=== PATIENT | female | born 1960 | race Caucasian/White ===

== ENCOUNTER 2023-04-02 08:33 | Observation (INO) ==
[2023-04-02] MEDS ORDERED: diphenhydrAMINE 50 MG/ML VIAL IV STA (09:03)
[2023-04-02] MEDS ORDERED: LABETALOL HCL IV 5 MG/ML 20ML IV STA (09:03)
[2023-04-02] MEDS ORDERED: METOCLOPRAMIDE HCL INJ 5 MG/ML 2 ML VIAL IV STA (09:03)
--- NOTE | 2023-04-02 09:05 | Emergency Department Note ---
Impression & Plan Hypertensive urgency ADMIT ED Provider Note HPI: History obtained from patient. The patient is a 62-year-old female who presents emergency department with chief complaint of headache. Patient states she has had a headache now for the past 6 days. Patient states she does have a history of migraine headaches. In addition, patient states she took her blood pressure prior to arrival and it was "high". On arrival here to the ED the patient is hypertensive at 250/132, heart rate is 105, patient is afebrile. On arrival here to the ED the patient is alert and oriented, she does not have any focal deficits, she complains of some moderate nausea but otherwise appears to be in no acute distress. ROS: - Per HPI Differential Diagnosis: Intraparenchymal hemorrhage, subarachnoid hemorrhage, brain aneurysm, hypertensive emergency, migraine complex, tension headache, meningitis, amongst other potential pathologies. *Outpatient medications and allergy history reviewed. 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 Patient was given IV labetalol for presenting hypertension and headache. She was also ordered IV Reglan and IV Benadryl. CT imaging of the head with CT angiography was obtained and this does not show any evidence of any acute intracranial hemorrhage, no evidence of aneurysm per interpreting radiologist. Lab work shows no leukocytosis, hemoglobin is normal, platelet count is normal, CMP does not show any evidence of critical findings or endorgan damage. Renal function appears appropriate, troponin is negative. Urinalysis does not show any evidence of proteinuria. Patient has not had any fevers and no leukocytosis, I have low suspicion for acute infectious etiology as a source of her headache. Despite the above interventions patient continued to have complaint of headache and generally felt unwell, her blood pressure up trended slightly and therefore she was given a dose of IV hydralazine with good improvement. Patient tells me that she has had similar headaches in the past that have been associated with hypertension and medical admission. Given patient's poorly controlled blood pressure requiring multiple IV medications, I do feel it is appropriate to admit her for further work-up and management of hypertensive urgency with headache. Patient is in agreement to this plan. Case was discussed with the on-call admitting midlevel provider for the [facility], Mariam Tirado PA-C, and the patient was admitted in stable/improved condition to the service of Dr. Zuniga. Consultants/Discussions held with other healthcare providers: -Mariam Tirado PA-C, Dr. Zuniga (attending) Disposition discussion held by myself with: -Patient and significant other at the bedside * CRITICAL CARE TIME: ( 43 ) minutes -Management/stabilization of hypertensive urgency in the setting of ongoing headache requiring multiple IV medications for improvement in blood pressure with readings at times as high as 250 systolic, time spent at the bedside, interpretation of diagnostic studies, discussion with other healthcare providers and arrangement of admission Diagnosis: 1. Headache, acute, intractable 2. Hypertensive urgency, acute Disposition: Admission Agustin Reddy DO Emergency Medicine Past Med/Surg History Medical History (Updated 04/02/23 @ 12:48 by Mariam Tirado PA-C) Pre-diabetes Osteoarthritis Hypertension Hypercholesterolemia Surgical History (Updated 04/02/23 @ 12:30 by Mariam Tirado PA-C) Status post colonoscopy History of hysterectomy History of colonoscopy History of foot surgery Family History Father Hypertension Stroke Mother Hypertension Social History (Updated 04/02/23 @ 12:35 by Mariam Tirado PA-C) Smoking Status: Never smoker Hx Alcohol Use: Yes Alcohol type: beer and wine Hx Substance Use: No Preferred Language: Iraqi Communication Ability: Effective Regulatory Submissions Specialist Required: No Beliefs That Will Affect Care: None marital status: Current Living Situation: Spouse current occupational status: employed Feels Safe at Home: Yes Assistive Devices: None Allergies Allergies Allergy/AdvReac Type Severity Reaction Status Date / Time MOLD Allergy Intermediate EYES BURN Uncoded 04/02/23 11:22 AND SWELLING TIDE LAUNDRY DETERGENT Allergy Intermediate Rash Uncoded 04/02/23 11:22 Home Meds Home Medications Medication Instructions Recorded Confirmed diphenhydramine 25 1 tab PO HS PRN Pain 06/25/18 04/02/23 mg-acetaminophen 500 mg tablet (Tylenol PM Extra Strength) lisinopril 40 mg tablet 40 mg PO QAM 04/02/23 04/02/23 Results & Data (ED) Vital Signs Vital Signs - 24 hr 04/02/23 08:37 04/02/23 09:12 04/02/23 09:14 Temperature 36.8 C Temperature Source Temporal Artery Scan Pulse Rate 105 H 89 81 Pulse Rate [Right Finger] Pulse Rate from SpO2 Sensor 87 Respiratory Rate 18 18 Respiratory Effort / Characteristics Non-Labored Spontaneous Respiratory Depth Normal Blood Pressure 250/132 H 219/135 H Blood Pressure [Right Arm] Blood Pressure Mean 171 163 Blood Pressure Mean [Right Arm] Blood Pressure Position Sitting Pulse Oximetry 98 92 Oxygen Delivery Method Room Air Sepsis Recent Fever Within 48 Hours No Sepsis New/Unexplained Change in Mental Status No Sepsis Action Taken by Nursing No Action Required 04/02/23 09:18 04/02/23 09:30 04/02/23 10:00 Temperature Temperature Source Pulse Rate 87 76 73 Pulse Rate [Right Finger] Pulse Rate from SpO2 Sensor 76 72 Respiratory Rate 21 16 Respiratory Effort / Characteristics Respiratory Depth Blood Pressure 219/135 H 155/97 H 165/101 H Blood Pressure [Right Arm] Blood Pressure Mean 116 122 Blood Pressure Mean [Right Arm] Blood Pressure Position Pulse Oximetry 92 97 Oxygen Delivery Method Sepsis Recent Fever Within 48 Hours Sepsis New/Unexplained Change in Mental Status Sepsis Action Taken by Nursing 04/02/23 11:00 04/02/23 11:24 04/02/23 11:53 Temperature Temperature Source Pulse Rate 75 Pulse Rate [Right Finger] 73 69 Pulse Rate from SpO2 Sensor Respiratory Rate 22 16 Respiratory Effort / Characteristics Non-Labored Spontaneous Spontaneous Respiratory Depth Normal Normal Blood Pressure 168/104 H Blood Pressure [Right Arm] 168/104 H 187/117 H Blood Pressure Mean Blood Pressure Mean [Right Arm] 125 140 Blood Pressure Position Pulse Oximetry 96 95 Oxygen Delivery Method Room Air Room Air Sepsis Recent Fever Within 48 Hours Sepsis New/Unexplained Change in Mental Status Sepsis Action Taken by Nursing 04/02/23 12:01 04/02/23 12:13 04/02/23 12:36 Temperature Temperature Source Pulse Rate Pulse Rate [Right Finger] 71 73 77 Pulse Rate from SpO2 Sensor Respiratory Rate 16 18 20 Respiratory Effort / Characteristics Spontaneous Spontaneous Respiratory Depth Normal Normal Blood Pressure Blood Pressure [Right Arm] 204/129 H 197/115 H 223/122 H Blood Pressure Mean Blood Pressure Mean [Right Arm] 154 142 155 Blood Pressure Position Pulse Oximetry 97 98 97 Oxygen Delivery Method Room Air Room Air Room Air Sepsis Recent Fever Within 48 Hours Sepsis New/Unexplained Change in Mental Status Sepsis Action Taken by Nursing 04/02/23 12:47 04/02/23 12:58 Temperature Temperature Source Pulse Rate Pulse Rate [Right Finger] 80 85 Pulse Rate from SpO2 Sensor Respiratory Rate 16 16 Respiratory Effort / Characteristics Spontaneous Spontaneous Respiratory Depth Normal Normal Blood Pressure Blood Pressure [Right Arm] 200/109 H 198/117 H Blood Pressure Mean Blood Pressure Mean [Right Arm] 139 144 Blood Pressure Position Pulse Oximetry 96 96 Oxygen Delivery Method Room Air Room Air Sepsis Recent Fever Within 48 Hours Sepsis New/Unexplained Change in Mental Status Sepsis Action Taken by Nursing Laboratory Data 04/02/23 09:05 04/02/23 09:05 Lab Results 04/02/23 04/02/23 Range/Units 09:05 10:28 WBC 5.59 (4.8-10.8) K/ul RBC 4.58 (4.20-5.40) M/uL Hgb 13.8 (12.0-16.0) g/dl Hct 41.5 (37.0-47.0) % MCV 90.6 (80.0-100.0) fL MCH 30.1 (25.0-34.0) pg MCHC 33.3 (32.0-36.0) g/dL RDW Std Deviation 43.5 (36.4-46.3) fL RDW Coeff of Jesus 13.1 (11.5-14.5) % Plt Count 244 (130-400) K/uL MPV 9.9 (9.4-12.4) fL Immature Gran % (Auto) 1.8 % Neut % (Auto) 69.8 % Lymph % (Auto) 20.8 % [place] % (Auto) 7.0 % Eos % (Auto) 0.4 % Baso % (Auto) 0.2 % Neut # (Auto) 3.91 (1.40-6.50) K/uL Lymph # (Auto) 1.16 L (1.20-3.40) K/uL [place] # (Auto) 0.39 (0.11-0.59) K/uL Eos # (Auto) 0.02 (0.00-0.50) K/uL Baso # (Auto) 0.01 (0.00-0.20) K/uL Immature Gran # (Auto) 0.10 (0.01-0.20) K/uL PT 10.8 (9.0-12.0) Seconds INR 1.0 (0.9-1.1) Sodium 140 (136-145) mmol/L Potassium 3.5 (3.5-5.1) mmol/L Chloride 105 (98-107) mmol/L Carbon Dioxide 27 (21-32) mmol/L Anion Gap 8 (3-11) BUN 10 (6-23) mg/dl Creatinine 0.77 (0.6-1.2) mg/dl Est Cr Clr Drug Dosing 68.9 ml/min Est GFR ( Amer) 96.6 ml/min Est GFR (Non-Af Amer) 83.3 ml/min BUN/Creatinine Ratio 13.0 (10-20) Glucose 112 H (70-99(Fasting)) mg/dl Calcium 9.7 (8.6-10.3) mg/dl Total Bilirubin 0.5 (0.2-1.0) mg/dl AST 16 (13-39) U/L ALT 17 (7-52) U/L Alkaline Phosphatase 59 (34-104) U/L Troponin I High Sens 4.5 (0-14) pg/ml Total Protein 7.5 (6.0-8.3) gm/dl Albumin 4.5 (3.4-5.0) gm/dl Globulin 3.0 (2.5-4.0) gm/dl Albumin/Globulin Ratio 1.5 (0.9-2) Lipase 31 (11-82) U/L Urine Color Yellow Urine Appearance Clear (Clear) Urine pH 7.5 (4.5-7.5) Ur Specific [place] 1.007 (1.000-1.030) Urine Protein Negative (Negative) Urine Glucose (UA) Negative (Negative) Urine Ketones Negative (Negative) Urine Blood Negative (Negative) Urine Nitrite Negative (Negative) Urine Bilirubin Negative (Negative) Urine Urobilinogen Negative (Negative) Ur Leukocyte Esterase Negative (Negative) Administered Medications Discontinued Medications Diphenhydramine HCl (Diphenhydramine 50 Mg/Ml Vial) 25 mg IV NOW STA Stop: 04/02/23 09:04 Last Admin: 04/02/23 09:13 Dose: 25 mg Documented By: ESTEFANIA Hydralazine HCl (Hydralazine Hcl 20 Mg/Ml Vial) 5 mg IV NOW ONE Stop: 04/02/23 12:05 Last Admin: 04/02/23 12:08 Dose: 5 mg Documented By: ANGELA Hydralazine HCl (Hydralazine Hcl 20 Mg/Ml Vial) 10 mg IV NOW STA Stop: 04/02/23 12:28 Last Admin: 04/02/23 12:42 Dose: 10 mg Documented By: ANGELA Ioversol (Optiray 320 100ml) 89 ml IV ONCE ONE Stop: 04/02/23 10:26 Last Admin: 04/02/23 10:25 Dose: 89 ml Documented By: MILES Labetalol HCl (Labetalol Hcl Iv 5 Mg/Ml 20ml) 15 mg IV NOW STA Stop: 04/02/23 09:04 Last Admin: 04/02/23 09:18 Dose: 15 mg Documented By: ESTEFANIA Co-signed By: ARMANDO Methylprednisolone (Methylprednisolone 40 Mg/Ml Vial) 40 mg IV NOW STA Stop: 04/02/23 12:28 Last Admin: 04/02/23 12:42 Dose: 40 mg Documented By: ANGELA Metoclopramide HCl (Metoclopramide Hcl Inj 5 Mg/Ml 2 Ml Vial) 10 mg IV NOW STA Stop: 04/02/23 09:04 Last Admin: 04/02/23 09:13 Dose: 10 mg Documented By: ESTEFANIA Morphine Sulfate (Morphine Sulfate 4 Mg/Ml 1 Ml Carp\\Vial) 4 mg IV NOW STA Stop: 04/02/23 11:08 Last Admin: 04/02/23 11:21 Dose: 4 mg Documented By: ANGELA Morphine Sulfate (Morphine Sulfate 4 Mg/Ml 1 Ml Carp\\Vial) 4 mg IV NOW STA Stop: 04/02/23 12:05 Last Admin: 04/02/23 12:08 Dose: 4 mg Documented By: ANGELA Imaging Data Radiologist's Impression: Chest X-Ray 04/02/23 08:56 XR chest 1V portable HISTORY: 62 years-old Female Chest pain, nonspecific acute chest pain COMPARISON: 06/27/2018 TECHNIQUE: AP view the chest FINDINGS: Right axilla is normal. No pneumothorax, pleural effusion, airspace consolidation or pulmonary edema. Bones appear grossly intact. IMPRESSION: No acute process. ACT 112: Negative or not required by law. The above report was generated using voice recognition software. It may contain grammatical, syntax or spelling errors. Electronically signed by: Newton Guaman M.D. 04/02/2023 9:58 AM Head CTA 04/02/23 09:03 CT angio head wo/w CLINICAL HISTORY: FOREMAN x 6 days, HTN COMPARISON STUDY: No previous studies for comparison. TECHNIQUE: Axial images of the head were obtained before and after intravenous administration of 89 cc of Optiray 320 IV. Arterial phase imaging was performed. Sagittal and coronal reconstructions were viewed. Automated exposure control was utilized for the study. A dose lowering technique was utilized adhering to the principles of ALARA. FINDINGS: No acute intracranial hemorrhage, midline shift or mass effect is present. Ventricular system is normal. Basal cisterns are patent. There are no extra axial collections. White matter hypodensities suggest small vessel disease. There are no findings to suggest acute dural sinus thrombosis or acute territorial infarct. No significant calvarial abnormalities are present. A small amount of fluid within the inferior bilateral mastoid air cells is present. No intracranial mass or pathologic enhancement is present. Major intracranial vessels are grossly patent. No intracranial aneurysm is identified. There is no dissection within the intracranial vessels. Vascular opacification is somewhat suboptimal. There are bilateral posterior communicating arteries. There is moderate atherosclerotic plaque within the cavernous carotids without stenosis. IMPRESSION: 1. No acute intracranial findings. 2. White matter hypodensities suggestive of small vessel disease. 3. No intracranial aneurysm. No central vessel occlusion. Vascular opacification suboptimal but no significant abnormality identified. ACT 112: Negative or not required by law. Electronically signed by: Andres Vázquez M.D. 04/02/2023 11:47 AM Discharge Plan Visit Data Chief Complaint: Hypertension Stated Complaint: HEADACHE,HYPERTENSION ED Provider: Agustin Reddy Discharge Problem: Hypertensive urgency Forms Stand Alone Forms: [facility] Prescriptions Prescriptions: No Action diphenhydramine-acetaminophen [Tylenol PM Extra Strength] 25-500 mg Tablet 1 tab PO HS PRN (Reason: Pain) lisinopril 40 mg tablet 40 mg PO QAM Referrals Referrals: Gabe Ramos DO [Outside Practitioners] -
[2023-04-02 09:20] LABS: Basophils # (auto) 0.01 K/uL (0.00-0.20); Basophils % (auto) 0.2 %; Eosinophils # (auto) 0.02 K/uL (0.00-0.50); Eosinophils % (auto) 0.4 %; Hematocrit (blood only) 41.5 % (37.0-47.0); Hemoglobin 13.8 g/dl (12.0-16.0); Immature Granulocytes % (auto) 1.8 %; Lymphocytes # (auto) 1.16 K/uL (1.20-3.40); Lymphocytes % (auto) 20.8 %; Mean Corpuscular Hemoglobin 30.1 pg (25.0-34.0); Mean Corpuscular Hgb Conc 33.3 g/dL (32.0-36.0); Mean Corpuscular Volume 90.6 fL (80.0-100.0); Mean Platelet Volume 9.9 fL (9.4-12.4); Monocytes # (auto) 0.39 K/uL (0.11-0.59); Neutrophils # (auto) 3.91 K/uL (1.40-6.50); Neutrophils % (auto) 69.8 %; Platelet Count 244 K/uL (130-400); RDW Coefficient of Variation 13.1 % (11.5-14.5); RDW Standard Deviation 43.5 fL (36.4-46.3); Red Blood Count 4.58 M/uL (4.20-5.40); White Blood Count 5.59 K/ul (4.8-10.8)
[2023-04-02 09:35] LABS: Albumin Level 4.5 gm/dl (3.4-5.0); Bilirubin,Total 0.5 mg/dl (0.2-1.0); Calcium 9.7 mg/dl (8.6-10.3); Potassium 3.5 mmol/L (3.5-5.1)
[2023-04-02 09:39] LABS: Prothrombin Time 10.8 Seconds (9.0-12.0)
[2023-04-02 09:41] LABS: Albumin Globulin Ratio 1.5 (0.9-2); Creatinine Clr Calc Pharmacy 68.9 ml/min; Est GFR (African American) 96.6 ml/min; Est GFR (Non-African American) 83.3 ml/min; Total Protein 7.5 gm/dl (6.0-8.3)
[2023-04-02 09:44] LABS: Troponin I High Sensitivity 4.5 pg/ml (0-14)
--- NOTE | 2023-04-02 09:56 | Electrocardiogram Report ---
Test Reason : Blood Pressure : / mmHG Vent. Rate : 090 BPM Atrial Rate : 090 BPM P-R Int : 144 ms QRS Dur : 098 ms QT Int : 400 ms P-R-T Axes : 045 -13 039 degrees QTc Int : 489 ms Poor data quality, interpretation may be adversely affected Normal sinus rhythm Incomplete right bundle branch block Borderline ECG When compared with ECG of 25-JUN-2018 18:40, No significant change was found Confirmed by Fede Puente ([id number]) on 04/02/2023 9:55:50 AM Referred By: REFERRED SELF Confirmed By:Fede Puente
--- NOTE | 2023-04-02 09:59 | XRay Report ---
XR chest 1V portable HISTORY: 62 years-old Female Chest pain, nonspecific acute chest pain COMPARISON: 06/27/2018 TECHNIQUE: AP view the chest FINDINGS: Right axilla is normal. No pneumothorax, pleural effusion, airspace consolidation or pulmonary edema. Bones appear grossly intact. IMPRESSION: No acute process. ACT 112: Negative or not required by law. The above report was generated using voice recognition software. It may contain grammatical, syntax o r spelling errors. Electronically signed by: Newton Guaman M.D. 04/02/2023 9:58 AM
[2023-04-02] MEDS ORDERED: OPTIRAY 320 100ml IV ONE (10:25)
[2023-04-02] MEDS ORDERED: MoRPHine SULFATE 4 MG/ML 1 ML CARP\\VIAL IV STA ×2 (11:07→12:04)
[2023-04-02 11:15] LABS: Appearance Urine Clear (Clear); Bilirubin Urine Negative (Negative); Blood Urine Negative (Negative); Color Urine Yellow; Glucose Urine UA Negative (Negative); Ketones Urine Negative (Negative); Leukocyte Esterase Urine Negative (Negative); Nitrite Urine Negative (Negative); Protein Urine Negative (Negative); Specific Gravity Urine 1.007 (1.000-1.030); Urobilinogen Urine Negative (Negative); pH Urine 7.5 (4.5-7.5)
--- NOTE | 2023-04-02 11:48 | CT Scan Report ---
CT angio head wo/w CLINICAL HISTORY: FOREMAN x 6 days, HTN COMPARISON STUDY: No previous studies for comparison. TECHNIQUE: Axial images of the head were obtained before and after intravenous administration of 89 c c of Optiray 320 IV. Arterial phase imaging was performed. Sagittal and coronal reconstructions were viewed. Automated exposure control was utilized for the study. A dose lowering technique was utilize d adhering to the principles of ALARA. FINDINGS: No acute intracranial hemorrhage, midline shift or mass effect is present. Ventricular syst em is normal. Basal cisterns are patent. There are no extra axial collections. White matter hypodensi ties suggest small vessel disease. There are no findings to suggest acute dural sinus thrombosis or a cute territorial infarct. No significant calvarial abnormalities are present. A small amount of fluid within the inferior bilateral mastoid air cells is present. No intracranial mass or pathologic enhan cement is present. Major intracranial vessels are grossly patent. No intracranial aneurysm is identif ied. There is no dissection within the intracranial vessels. Vascular opacification is somewhat subop timal. There are bilateral posterior communicating arteries. There is moderate atherosclerotic plaque within the cavernous carotids without stenosis. IMPRESSION: 1. No acute intracranial findings. 2. White matter hypodensities suggestive of small vessel disease. 3. No intracranial aneurysm. No central vessel occlusion. Vascular opacification suboptimal but no si gnificant abnormality identified. ACT 112: Negative or not required by law. Electronically signed by: Andres Vázquez M.D. 04/02/2023 11:47 AM
[2023-04-02] MEDS ORDERED: hydrALAZINE HCL 20 MG/ML VIAL IV ONE (12:04)
[2023-04-02] MEDS ORDERED: hydrALAZINE HCL 20 MG/ML VIAL IV STA (12:27)
--- NOTE | 2023-04-02 12:27 | History & Physical Report ---
Date of Service April 02, 2023 Assessment & Plan (1) Hypertensive emergency: (2) Migraine: Plan This is a 62 yr old F who has a significant PMH of HTN, HLD, prediabetes and migraine who presents to ED 2/2 Headache x 6 days. Hypertensive Emergency admit to PCU Place pt on cardene gtt She received labetalol 15 mg x 1 and hydralazine 5 mg x 1 Gave additional hydralazine 10mg x 1 now as well as solumedrol 40mg x 1 for abortive therapy for migraine with no real improvement obtain lyme, anaplasma, babesia serology continue cardene gtt, hold home dose lisinopril for now while on gtt eval for secondary causes with renal vascular US and metanephrine s/catecholamines Migraine so far refractory to reglan, benadryl and Solumedrol sumatriptan given x 1 anticipate improvement of BP to aide in relief as well schedule IV APAP 1g q8 for now, pt unable to tolerate PO given nausea/vomiting HLD not on any medications total chol panel on 02/03 was Total 308, LDL, 192 and HDL 87 will defer to PCP but would recommend initiating statin therapy if pt agreeable Pre diabetes a1 in outpatient setting 5.8 on 02/03 recommend diet and lifestyle modifications at discharge DVT ppx: SCDS until BP improved FULL CODE PCP: Sakshi Kraus PA-C, Miguel starkey Dispo: admit to PCU for cardene gtt Pt was seen and examined in collaboration with Dr. Zuniga, please see addendum History of Present Illness Chief Complaint: Headache x 6 days. Primary Care Provider: NO PCP This is a 62 yr old F who has a significant PMH of HTN, HLD, prediabetes and migraine who presents to ED 2/2 Headache x 6 days. She has hx of migraine in past and this feels similar. She also is reporting nausea. Her headache is, "vice like." It is a constant/throbbing pain with photophobia. She denies change in vision or hearing. She actually had a good day yesterday, but worsened today and therefore she came to ED. She denies recent illness, f/s, dizziness, lightheaded, chest pain, sob, vomiting, diarrhea, constipation, dysuria, increased urg/freq with urination, melena or hematochezia. She feels chilled/shaky and body feeling ice cold. She works at the [employer] at [facility] so has exposure but no known sick contacts. In ED pt was significantly hypertensive despite 2 doses of IV morphine, IV reglan, Labetaolol 15mg IV and hydralazine 5mg IV. She does have prior hx of hospitalization 2/2 to elevated hypertension presenting from colonoscopy. She denies any hx of tick bite, but is active outside and also has dogs. She does complain of a red rash to her anterior chest. She has tried some OTC meds with minimal relief, specifically nyquil. Allergies Allergy/AdvReac Type Severity Reaction Status Date / Time MOLD Allergy Intermediate EYES BURN Uncoded 04/02/23 11:22 AND SWELLING TIDE LAUNDRY DETERGENT Allergy Intermediate Rash Uncoded 04/02/23 11:22 Home Medications Medication Instructions Recorded Confirmed Type diphenhydramine 25 1 tab PO HS PRN Pain 06/25/18 04/02/23 History mg-acetaminophen 500 mg tablet (Tylenol PM Extra Strength) lisinopril 40 mg tablet 40 mg PO QAM 04/02/23 04/02/23 History Past Med/Surg History Medical History (Updated 04/02/23 @ 12:48 by Mariam Tirado PA-C) Pre-diabetes Osteoarthritis Hypertension Hypercholesterolemia Surgical History (Updated 04/02/23 @ 12:30 by Mariam Tirado PA-C) Status post colonoscopy History of hysterectomy History of colonoscopy History of foot surgery Family History Father Hypertension Stroke Mother Hypertension Social History (Updated 04/02/23 @ 12:35 by Mariam Tirado PA-C) Smoking Status: Never smoker Hx Alcohol Use: Yes Alcohol type: beer and wine Hx Substance Use: No Preferred Language: Wolof Communication Ability: Effective Geologic Technician Required: No Beliefs That Will Affect Care: None marital status: Current Living Situation: Spouse current occupational status: employed Feels Safe at Home: Yes Assistive Devices: None Review of Systems Review of Systems: All systems reviewed & are unremarkable except as noted in HPI & below Physical Exam Physical Exam: please refer to Dr. Zuniga addendum for physical exam findings. Results & Data Results & Data Vital Signs (Past 12 Hours) Vital Signs Temp Pulse Pulse Resp BP BP Pulse Ox 04/02/23 12:13 73 18 197/115 H 98 04/02/23 12:01 71 16 204/129 H 97 04/02/23 11:53 69 16 187/117 H 95 04/02/23 11:24 75 168/104 H 04/02/23 11:00 73 22 168/104 H 96 04/02/23 10:00 73 16 165/101 H 97 04/02/23 09:30 76 21 155/97 H 92 04/02/23 09:18 87 219/135 H 04/02/23 09:14 81 04/02/23 09:12 89 18 219/135 H 92 04/02/23 08:37 36.8 C 105 H 18 250/132 H 98 O2 Del Method 04/02/23 12:13 Room Air 04/02/23 12:01 Room Air 04/02/23 11:53 Room Air 04/02/23 11:24 04/02/23 11:00 Room Air 04/02/23 10:00 04/02/23 09:30 04/02/23 09:18 04/02/23 09:14 04/02/23 09:12 04/02/23 08:37 Room Air Diagnostic Findings Chest X-Ray 04/02/23 08:56 XR chest 1V portable HISTORY: 62 years-old Female Chest pain, nonspecific acute chest pain COMPARISON: 06/27/2018 TECHNIQUE: AP view the chest FINDINGS: Right axilla is normal. No pneumothorax, pleural effusion, airspace consolidation or pulmonary edema. Bones appear grossly intact. IMPRESSION: No acute process. ACT 112: Negative or not required by law. The above report was generated using voice recognition software. It may contain grammatical, syntax or spelling errors. Electronically signed by: Newton Guaman M.D. 04/02/2023 9:58 AM Head CTA 04/02/23 09:03 CT angio head wo/w CLINICAL HISTORY: FOREMAN x 6 days, HTN COMPARISON STUDY: No previous studies for comparison. TECHNIQUE: Axial images of the head were obtained before and after intravenous administration of 89 cc of Optiray 320 IV. Arterial phase imaging was performed. Sagittal and coronal reconstructions were viewed. Automated exposure control was utilized for the study. A dose lowering technique was utilized adhering to the principles of ALARA. FINDINGS: No acute intracranial hemorrhage, midline shift or mass effect is present. Ventricular system is normal. Basal cisterns are patent. There are no extra axial collections. White matter hypodensities suggest small vessel disease. There are no findings to suggest acute dural sinus thrombosis or acute territorial infarct. No significant calvarial abnormalities are present. A small amount of fluid within the inferior bilateral mastoid air cells is present. No intracranial mass or pathologic enhancement is present. Major intracranial vessels are grossly patent. No intracranial aneurysm is identified. There is no dissection within the intracranial vessels. Vascular opacification is somewhat suboptimal. There are bilateral posterior communicating arteries. There is moderate atherosclerotic plaque within the cavernous carotids without stenosis. IMPRESSION: 1. No acute intracranial findings. 2. White matter hypodensities suggestive of small vessel disease. 3. No intracranial aneurysm. No central vessel occlusion. Vascular opacification suboptimal but no significant abnormality identified. ACT 112: Negative or not required by law. Electronically signed by: Andres Vázquez M.D. 04/02/2023 11:47 AM Medications Administered Medication List Discontinued Medications Diphenhydramine HCl (Diphenhydramine 50 Mg/Ml Vial) 25 mg IV NOW STA Stop: 04/02/23 09:04 Last Admin: 04/02/23 09:13 Dose: 25 mg Documented By: ESTEFANIA Hydralazine HCl (Hydralazine Hcl 20 Mg/Ml Vial) 5 mg IV NOW ONE Stop: 04/02/23 12:05 Last Admin: 04/02/23 12:08 Dose: 5 mg Documented By: ANGELA Ioversol (Optiray 320 100ml) 89 ml IV ONCE ONE Stop: 04/02/23 10:26 Last Admin: 04/02/23 10:25 Dose: 89 ml Documented By: MILES Labetalol HCl (Labetalol Hcl Iv 5 Mg/Ml 20ml) 15 mg IV NOW STA Stop: 04/02/23 09:04 Last Admin: 04/02/23 09:18 Dose: 15 mg Documented By: ESTEFANIA Co-signed By: ARMANDO Metoclopramide HCl (Metoclopramide Hcl Inj 5 Mg/Ml 2 Ml Vial) 10 mg IV NOW STA Stop: 04/02/23 09:04 Last Admin: 04/02/23 09:13 Dose: 10 mg Documented By: ESTEFANIA Morphine Sulfate (Morphine Sulfate 4 Mg/Ml 1 Ml Carp\\Vial) 4 mg IV NOW STA Stop: 04/02/23 11:08 Last Admin: 04/02/23 11:21 Dose: 4 mg Documented By: ANGELA Morphine Sulfate (Morphine Sulfate 4 Mg/Ml 1 Ml Carp\\Vial) 4 mg IV NOW STA Stop: 04/02/23 12:05 Last Admin: 04/02/23 12:08 Dose: 4 mg Documented By: ANGELA ECG Additional Comments: 90, NSR, incomplete RBBB, qtc 485ms COVID-19 Results Results COVID-19 Adm Lab Results: RBC 4.58 M/uL (4.20-5.40) 04/02/23 WBC 5.59 K/ul (4.8-10.8) 04/02/23 Hgb 13.8 g/dl (12.0-16.0) 04/02/23 Hct 41.5 % (37.0-47.0) 04/02/23 Plt Count 244 K/uL (130-400) 04/02/23 Neutrophils (%) (Auto) 69.8 % 04/02/23 Lymphocytes (%) (Auto) 20.8 % 04/02/23 Monocytes # (Auto) 0.39 K/uL (0.11-0.59) 04/02/23 Eosinophils # (Auto) 0.02 K/uL (0.00-0.50) 04/02/23 Immature Granulocyte % (Auto) 1.8 % 04/02/23 Neutrophils # (Auto) 3.91 K/uL (1.40-6.50) 04/02/23 Lymphocytes # (Auto) 1.16 K/uL (1.20-3.40) L 04/02/23 Monocytes # (Auto) 0.39 K/uL (0.11-0.59) 04/02/23 Eosinophils # (Auto) 0.02 K/uL (0.00-0.50) 04/02/23 Basophils # (Auto) 0.01 K/uL (0.00-0.20) 04/02/23 Immature Granulocyte # (Auto) 0.10 K/uL (0.01-0.20) Na 140 mmol/L (136-145) 04/02/23 K 3.5 mmol/L (3.5-5.1) 04/02/23 Cl 105 mmol/L (98-107) 04/02/23 CO2 27 mmol/L (21-32) 04/02/23 Anion Gap 8 (3-11) 04/02/23 BUN 10 mg/dl (6-23) 04/02/23 Creatinine 0.77 mg/dl (0.6-1.2) 04/02/23 BUN/Creatinine Ratio 13.0 (10-20) 04/02/23 Glucose Level 112 mg/dl (70-99(Fasting)) H 04/02/23 Ca 9.7 mg/dl (8.6-10.3) 04/02/23 Total Bilirubin 0.5 mg/dl (0.2-1.0) 04/02/23 AST/SGOT 16 U/L (13-39) 04/02/23 ALT/SGPT 17 U/L (7-52) 04/02/23 Alkaline Phosphatase 59 U/L (34-104) 04/02/23 Total Protein 7.5 gm/dl (6.0-8.3) 04/02/23 Albumin 4.5 gm/dl (3.4-5.0) 04/02/23 Globulin 3.0 gm/dl (2.5-4.0) 04/02/23 Albumin/Globulin Ratio 1.5 (0.9-2) 04/02/23 INR 1.0 (0.9-1.1) 04/02/23 Chest X-Ray 04/02/23 Code Status & VTE Plan Code Status FULL CODE Supervising Physician Co-Signing Physician Notes I have seen and discussed the case with the collaborating GIOVANNA. I agree with the above H&P. I have reviewed and confirmed the patients medical history, the findings on physical examination, and the patients diagnosis and treatment plan with Celestino HEREDIA and agree with the information documented. In short, Ms. Anna is a 62 year old woman with past medical history of hypertension and HLD who presented due to 6 days of migraine that has failed over the counter management. On admission, patient noted to be hypertensive to 220s and tachycardic to 100s. Labs unremarkable for end organ damage, including stable cr and negative troponin. CTA head without ICH or acute process. CXR without widened mediastinum, pulm edema. Patient given 15mg labetalol and 5mg hydralazine with initial reduction in BP to 160s; however, pressure subsequently increased. Patients's migraine was unresponsive to morphine. Patient denies any neuro symptoms outside of headache that is global, "vice" like. Patient denies chest pain, flank pain, bowel/urinary changes. Physical exam was notable for a well nourished woman who appeared in distress requesting lights to remain off. Skin was flushed around the neck, warm to touch, no other obvious rashes lesions. CV exam was RRR and without murmur. Resp revealed clear breath sounds bilateral, no crackles. Abdomen soft, nontender, nondistended. MSK revealed no concerns with strength, patient observed ambulating to bathroom without dysfunction. Neuro exam revealed small pupils iso recent opioid administration, but EOMI intact. CN II-XII intact and without deficit on exam. Patient able to flex chin to chest and flex knees with out abnormal response( negative kernigs, brudziniski). Ms. Anna is a woman with few comorbidities presenting with acute migraine and hypertensive emergency. This is not patient's first admission for hypertensive emergency. There is concern for secondary etiologies of hypertension, given migraine, tachycardia, and elevated pressure--such as pheochromocytoma. Labs are not suggestive of hyperaldosteronism. Patient's abdominal CT in 2019 with stenosis, but no formal eval performed. #Hypertensive emergency given migraine -Renal function stable at this time, trop stable at this time: denies chest pain, or other symptoms c/w EOD outside of migraine (no vision changes, neuro deficit) -s/p IV 15mg labetolol, hydralazine x 2 -Unable to tolerate PO regimen 2/2 nausea/vomiting, BP peaks during episodes NV -Unclear if BP elevated secondary to pain endorsed by migraine, v migraine 2/2 to hypertension; patient denied any reduced intensity with slight pressure reduction or migraine cocktail initially -Secondary HTN eval: urine metanephrines/catecholamines for pheo given rash/migraine/pressures, Renal US for SKYLAR -Given nausea/vomiting and failure to respond to IV, transition to nicardipine drip -Monitor on tele -PCU for drip titration: goal BP for 6 hours is 165 with plans to start nicardipine IR PO as option for migraine prevention #Refractory migraine #Nausea Vomiting -s/p benadryl, reglan, morphine with no improvement -IV Methylpred 40mg and S! Sumatriptan administered -Avoid ketorlac 2/2 hypertension, PO medications unable to tolerate at this time -Schedule IV tylenol 1000mg q6h until tolerating PO -Promethazine for nausea and migraine management -Follow up on triptan/steroid efficacy -If still present contact Neuro -Follow up pheochromocytoma labs, consider adrenal MRI if suspicion is high and patient stable Rest of plan as above
[2023-04-02] MEDS ORDERED: SUMAtriptan succinate 6 MG/0.5 ML VIAL SQ STA (13:11)
[2023-04-02] MEDS ORDERED: ONDANSETRON INJ 2 MG/ML 2 ML VIAL IV PRN (13:29)
[2023-04-02] MEDS ORDERED: STAT IV Infusion **Titration per Protocol STA (13:34)
[2023-04-02] MEDS ORDERED: PROMETHAZINE HCL 25 MG in SODIUM CHLORIDE 0.9% 50 ML IV STA (13:51)
[2023-04-02 14:00] LABS: Lyme Ab IgG w/WB Rflx Negative (Negative); Lyme Ab IgM w/WB Rflx Negative (Negative)
[2023-04-02] MEDS ORDERED: ACETAMINOPHEN 1,000 MG/100 ML VIAL IV STA (14:07)
[2023-04-02] MEDS: niCARdipine 25 MG in SODIUM CHLORIDE 0.9% 240 ML IV SCH ×3 (14:40→22:57)
--- NOTE | 2023-04-02 15:49 | Electrocardiogram Report ---
Test Reason : Blood Pressure : / mmHG Vent. Rate : 078 BPM Atrial Rate : 078 BPM P-R Int : 124 ms QRS Dur : 102 ms QT Int : 396 ms P-R-T Axes : 029 -12 020 degrees QTc Int : 451 ms Normal sinus rhythm Incomplete right bundle branch block Borderline ECG When compared with ECG of 02-APR-2023 09:00, No significant change was found Confirmed by Fede Puente ([id number]) on 04/02/2023 3:49:24 PM Referred By: REFERRED SELF Confirmed By:Fede Puente
[2023-04-02] MEDS ORDERED: POLYETHYLENE (MIRALAX) 17 GM PACK PO PRN (16:03)
[2023-04-02] MEDS ORDERED: MAGNESIUM HYDROXIDE SUSP 30 ML UDC PO PRN (16:03)
[2023-04-02] MEDS ORDERED: ALUMINUM/MAGNESIUM SUSP 30 ML UDC PO PRN (16:03)
[2023-04-02] MEDS ORDERED: NAPROXEN 250 MG TAB PO STA (17:50)
[2023-04-02] MEDS ORDERED: NIFEdipine EXTENDED REL 30 MG TABCR PO STA (17:54)
[2023-04-02] MEDS ORDERED: PROMETHAZINE HCL 25 MG in SODIUM CHLORIDE 0.9% 50 ML IV PRN (20:00)
[2023-04-02] MEDS: ACETAMINOPHEN 1,000 MG/100 ML VIAL IV SCH (20:17)
[2023-04-02] MEDS ORDERED: MELATONIN 3 MG TAB PO PRN (22:40)
[2023-04-02] MEDS ORDERED: MELATONIN 3 MG TAB PO ONE (22:51)
[2023-04-03] MEDS: niCARdipine 25 MG in SODIUM CHLORIDE 0.9% 240 ML IV SCH ×3 (02:52→16:19)
[2023-04-03] MEDS: ACETAMINOPHEN 1,000 MG/100 ML VIAL IV SCH ×3 (05:44→20:59)
[2023-04-03 06:14] LABS: Basophils # (auto) 0.01 K/uL (0.00-0.20); Basophils % (auto) 0.1 %; Eosinophils # (auto) 0.01 K/uL (0.00-0.50); Eosinophils % (auto) 0.1 %; Hematocrit (blood only) 38.6 % (37.0-47.0); Immature Granulocytes # (auto) 0.02 K/uL (0.01-0.20); Immature Granulocytes % (auto) 0.2 %; Lymphocytes # (auto) 1.36 K/uL (1.20-3.40); Lymphocytes % (auto) 16.2 %; Mean Corpuscular Hgb Conc 33.7 g/dL (32.0-36.0); Mean Corpuscular Volume 89.1 fL (80.0-100.0); Monocytes # (auto) 0.73 K/uL (0.11-0.59); Monocytes % (auto) 8.7 %; Neutrophils # (auto) 6.28 K/uL (1.40-6.50); Neutrophils % (auto) 74.7 %; Platelet Count 283 K/uL (130-400); RDW Coefficient of Variation 13.3 % (11.5-14.5); RDW Standard Deviation 43.7 fL (36.4-46.3); Red Blood Count 4.33 M/uL (4.20-5.40); White Blood Count 8.41 K/ul (4.8-10.8)
[2023-04-03 06:20] LABS: Albumin Level 3.9 gm/dl (3.4-5.0); BUN Creatinine Ratio 22.4 (10-20); Bilirubin,Total 0.4 mg/dl (0.2-1.0); Calcium 9.6 mg/dl (8.6-10.3); Creatinine Clr Calc Pharmacy 80.1 ml/min; Est GFR (Non-African American) 94.9 ml/min; Magnesium 2.2 mg/dl (1.7-2.4); Potassium 3.7 mmol/L (3.5-5.1); Total Protein 6.5 gm/dl (6.0-8.3)
[2023-04-03 06:34] LABS: Thyroid Stimulating Hormone 0.366 uIu/ml (0.300-4.500)
--- NOTE | 2023-04-03 08:38 | Electrocardiogram Report ---
Test Reason : Blood Pressure : / mmHG Vent. Rate : 068 BPM Atrial Rate : 068 BPM P-R Int : 146 ms QRS Dur : 108 ms QT Int : 446 ms P-R-T Axes : 057 -03 012 degrees QTc Int : 474 ms Normal sinus rhythm Incomplete right bundle branch block Nonspecific T wave abnormality Anterior leads Prolonged QT Abnormal ECG When compared with ECG of 02-APR-2023 12:43, Nonspecific T wave abnormality now evident in Anterior leads Confirmed by Fede Puente ([id number]) on 04/03/2023 8:38:36 AM Referred By: REFERRED SELF Confirmed By:Fede Puente
[2023-04-03] MEDS: NIFEdipine EXTENDED REL 30 MG TABCR PO SCH (09:29)
[2023-04-03] MEDS: NAPROXEN 250 MG TAB PO PRN ×2 (10:09→20:55)
--- NOTE | 2023-04-03 10:57 | Ultrasound Report ---
US duplex renal artery CLINICAL HISTORY: eval for renal artery stenosis. Hypertension. COMPARISON STUDY: Abdomen and pelvis CT 04/02/2023. FINDINGS: The right kidney measures 10.4 cm and the left kidney measures 10.3 cm. No hydronephrosis. The peak systolic velocity within the mid right renal artery was 117 cm/s in the proximal left renal artery was 106 cm/s. Resistive indices of the bilateral renal arcuate arteries are less than 0.7. The bilateral renal veins are patent. IMPRESSION: No evidence for renal artery stenosis. ACT 112: Negative or not required by law. Electronically signed by: aMu Merrill M.D. 04/03/2023 10:56 AM
--- NOTE | 2023-04-03 16:07 | Hospitalist Progress Note ---
Date of Service April 03, 2023 Assessment & Plan (1) Hypertensive emergency: (2) Migraine: Plan Patient is a 62 yr female with H/O HTN, HLD, prediabetes and migraine who presents to ED 2/2 Headache x 6 days. Hypertensive Emergency --Head CTA as below --Renal.Artery Duplex:No evidence for renal artery stenosis. --Work-up for secondary hypertension pending --Normal TSH --cardene gtt discontinued -- Resume lisinopril -- Started on nifedipine 30mg daily -- Titrate antihypertensives as needed --Monitor BP closely Migraine --Head CTA:No acute intracranial findings. White matter hypodensities suggestive of small vessel disease. No intracranial aneurysm. No central vessel occlusion. Vascular opacification suboptimal but no significant abnormality identified. Moderate atherosclerotic plaque within the cavernous carotids without stenosis. --Received reglan, benadryl and Solumedrol, sumatriptan given x 1 --BP control -- Counseled on importance of sleep, avoiding triggers --Continue Tylenol --Will start on magnesium, vitamin B2 -- Clinically improving Peripheral artery disease --Head CTA:No acute intracranial findings. White matter hypodensities suggestive of small vessel disease. No intracranial aneurysm. No central vessel occlusion. Vascular opacification suboptimal but no significant abnormality identified. Moderate atherosclerotic plaque within the cavernous carotids without stenosis. -- Started on Lipitor, aspirin -- Advised lifestyle changes H/O polypectomy Advised to follow-up with any bleeding issues while started on aspirin HLD not on any medications Lipid Panel on 02/03 was Total 308, LDL, 192 and HDL 87 Started on Lipitor 20mg HS Prediabetes HbA1c 5.8 on 02/03 Recommend diet and lifestyle modifications at discharge DVT Px: SCDs for now Encourage to ambulate Code Status FULL CODE Admission and Anticipated Discharge Date Admission Date: April 02, 2023 Subjective Patient is seen and examined at bedside Less headache today Poor sleep overnight Denies any nausea, vomiting today Also denies any chest pain, dyspnea, dizziness No other complaints Review of Systems Review of Systems: All systems reviewed & are unremarkable except as noted in Subjective Physical Exam Physical Exam: Physical Exam: Vitals signs as noted above General Appearance:Moderately built and nourished, no apparent distress Head: normocephalic, Atraumatic Eyes: normal inspection, EOMI Neck: supple, Trachea midline Respiratory/Chest: Normal breath sounds, CTA, No accessory muscle use Cardiovascular: S1, S2, No murmur Abdomen/GI:Soft, Non tender, Bowel sounds present Extremities/Musculoskeletal:normal inspection, no edema Neurologic/Psych:AAOX3, grossly no focal neurological deficits Skin: normal color, warm Results & Data Results & Data Vital Signs (Past 12 Hours) Vital Signs Temp Pulse Pulse Resp BP BP Pulse Ox 04/03/23 15:47 82 04/03/23 14:59 36.6 C 74 18 131/79 93 04/03/23 10:25 36.3 C L 76 18 119/75 96 04/03/23 07:57 68 04/03/23 07:02 36.9 C 69 18 119/80 95 O2 Del Method 04/03/23 15:47 04/03/23 14:59 Room Air 04/03/23 10:25 Room Air 04/03/23 07:57 04/03/23 07:02 Room Air Laboratory Results Short CBC 04/03/23 Range/Units 05:45 WBC 8.41 (4.8-10.8) K/ul Hgb 13.0 (12.0-16.0) g/dl Hct 38.6 (37.0-47.0) % Plt Count 283 (130-400) K/uL BMP 04/03/23 05:45 Sodium 139 Potassium 3.7 Chloride 108 H Carbon Dioxide 24 BUN 15 Creatinine 0.67 Glucose 93 Calcium 9.6 Liver Function 04/03/23 Range/Units 05:45 Total Bilirubin 0.4 (0.2-1.0) mg/dl Direct Bilirubin 0.0 (0-0.2) mg/dl AST 12 L (13-39) U/L ALT 12 (7-52) U/L Alkaline Phosphatase 50 (34-104) U/L Albumin 3.9 (3.4-5.0) gm/dl
[2023-04-03] MEDS: MAGNESIUM OXIDE 400 MG TAB PO SCH (16:23)
[2023-04-03] MEDS: lisinopril 40 MG TAB PO SCH (16:34)
[2023-04-03] MEDS: ATORVASTATIN 20 MG TAB PO SCH (20:55)
--- OUTSIDE RECORDS SUMMARY | 2023-04-04 04:21 | External Medical Summary | Summary of Care ---
Author Name Unknown Organization [facility] Address [address] [place] [address] Phone [phone] Care Team Providers Care Physical Damage Appraiser Name Role Phone Ulises Khan MD Primary Care Provider Encounter Details Date Type Department Care Team Description 03/20/2017 Hospital Encounter Radiology Film File [address] [place] [address] Allergies Active Allergy Reactions Severity Noted Date Comments Molds & Smuts 10/28/2019 documented as of this encounter (statuses as of 02/15/2023) Medications No known medicationsdocumented as of this encounter (statuses as of 02/15/2023) Active Problems Problem Noted Date Anxiety state 07/21/2019 Diverticulosis of small intestine withou t hemorrhage 11/04/2016 HTN, goal below 140/90 10/30/2015 Overview: Per HTN Protocol Vitamin D deficiency 06/15/2012 Pure hypercholesterolemia 06/15/2012 Viral warts 06/25/2006 Overview: ICD-10 update of inactive term HISTORY OF TOBACCO USE 04/25/2005 documented as of this encounter (statuses as of 02/15/2023) Resolved Problems Problem Noted Date Resolved Date Essential hypertension, benign 06/08/2012 0 11/02/2015 Overview: Per HTN Protocol documented as of this encounter (statuses as of 02/15/2023) Immunizations Name Administration Dates Next Due Pneumococcal Polysaccharide PPV23 (Pneumovax) 10/27/2009(Deferred: Patient Refused) Seasonal Influenza, Split, I IV3, With Preserve, Inj 06/08/2012,02/20/2009 TDAP (age 11 and older)(Adacel) 10/27/2009(Defer red: Patient Refused) documented as of this encounter Social History Tobacco Use Types Packs/Day Years Used Date Smoking Tobacco: Former Cigarettes 0.5 20 Smokeless Tobacco: Never Alcohol Use Standard Drinks/Week Comments Yes 0 (1 standard drink = 0.6 oz pur e alcohol) occas Food Insecurity Answer Date Recorded Within the past 12 months, y ou worried that your food would run out before you got money to buy more. Never true 07/21/2019 Within the past 12 months, t he food you bought just didn't last and you didn't have money to get more. Never true 07/21/2019 Sex Assigned at Date Recorded Female 07/25/2020 4:[address] Job Start Date Occupation Industry Not on file Not on file Not on file COVID-19 Exposure Response Date Recorded In the last month, have you been in contact with someone who was confirmed or suspected to have Coronavirus / COVID-19? No / Unsure 10/28/2019 8:38 AM EDT documented as of this encounter Plan of Treatment Upcoming Encounters Date Type Specialty Care Team Description 03/31/2023 Office Visit Family Medicine Sakshi Kraus PA-C [address] [place] [id number] Health Maintenance Due Date Last Done Comments DTaP,Tdap,and Td Vaccines (1 - Tdap) 1980 Cologuard 2006 Colonoscopy 2006 Sigmoidoscopy 2006 Colorectal Cancer Screening 08/02/2007 Fecal Occult Blood Test 08/02/2007 08/01/2006, 07/04 Mammogram 04/02/2019 04/02/2018, 1106/2016, 06/19/2012, Additional history exists Zoster Vaccines (2 of 2) 04/02/2021 02/05/2021 Depression Screening 07/25/2021 07/25/2020 COVID-19 Vaccine (4 - Pfizer series) 07/28/2021 06/02/2021, 06/16/2020, 05/26/2020 Influenza Vaccine (FLU shot) (#1) 2023 02/27/2022, 01/20/2019, 06/08/2012, Additional history exists GFR 02/04/2024 02/03/2023, 11/0 11/2021, 01/19/2021, Additional history exists Albumin/Creatinine Ratio 02/03/2026 02/03/2023 Diabetes Screening 02/03/2026 02/03/2023, 0 02/03/2023, 03/25/2022, Additional history exists Lipid Panel 02/04/2028 02/03/2023, 11/0 11/2021, 01/19/2021, Additional history exists GARDASIL-HPV IMMUNIZATION SERIES Aged Out No longer eligible based on patient's age to complete this topic Hepatitis B Aged Out No longer eligi ble based on patient's age to complete this topic MENINGOCOCCAL (MENACTRA/MENVEO) Aged Out No longer eligible based on patient's age to complete this topic Pneumococcal Vaccine: Pediatrics (0 to 5 Years) and At-Risk Patients (6 to 64 Years) Aged Out No longer eligible based on patient's age to complete this topic documented as of this encounter Medical Devices Not on filedocumented as of this encounter Procedures Procedure Name Priority Date/Time Associated Diagnosis Comments RADIOLOGY EXAM - MAMMOGRAPHY (IMAGES ONLY, NO REPORT) Routine 03/20/2017 12:00 PM EDT documented in this encounter Results * RADIOLOGY EXAM - MAMMOGRAPHY (IMAGES ONLY, NO REPORT) (03/20/2017 12:00 PM EDT) 03/20/2017 11:5 8 AM EDT Narrative Scheduling, Silent - 02/14/2023 7:24 PM EDT This is an imaging study not interpreted or resulted by a [facility] or [facility] contracted radiologist. Sakshi Kraus PA-C RAD MAMMOGRAPHY documented in this encounter Care Teams Physical Damage Appraiser Relationship Specialty Start Date End Date Ulises Khan MD [address] [place] [address] PCP - General 10/22/04 03/17/18 documented as of this encounter
--- OUTSIDE RECORDS SUMMARY | 2023-04-04 04:21 | External Medical Summary | Summary of Care ---
Author Name Unknown Organization [facility] Address [address] [place] [address] Phone [phone] Care Team Providers Care Claims Consultant Name Role Phone Alice Marino PA-C Primary Care Provider Encounter Details Date Type Department Care Team Description 04/02/2018 Hospital Encounter Radiology Film File [address] [place] [address] Allergies Active Allergy Reactions Severity [...] Tobacco: Former Cigarettes 0.5 20 Smokeless Tobacco: Former Alcohol Use Standard Drinks/Week Comments Yes 0 [...] Office Visit Family Medicine Sakshi Kraus PA-C [address] [place] [phone] Health Maintenance Due Date Last Done Comments [...] - MAMMOGRAPHY (IMAGES ONLY, NO REPORT) Routine 04/02/2018 8:25 AM EST documented in this encounter Results * RADIOLOGY EXAM - MAMMOGRAPHY (IMAGES ONLY, NO REPORT) (04/02/2018 8:25 AM EST) 04/02/2018 8:25 AM EST Narrative Scheduling, Silent - 02/14/2023 7:26 PM EDT This is an imaging study not interpreted or resulted by a [facility] or [facility] contracted radiologist. Sakshi Kraus PA-C RAD MAMMOGRAPHY documented in this encounter Care Teams Claims Consultant Relationship Specialty Start Date End Date Alice Marino PA-C PCP - General Physician Rouge Presser 03/18/18 07/12/18 documented as of this encounter
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
--- OUTSIDE RECORDS SUMMARY | 2023-04-04 04:22 | External Medical Summary | Summary of Care ---
Author Name Unknown Organization [facility] Address [address] [place] [address] Phone [phone] Care Team Providers Care Applications Engineering Manager Name Role Phone Sakshi Kraus-C Primary Care Provider [phone] Encounter Details Date Type Department Care Team Description 02/10/2023 Orders Only Outcomes Research Department [address], [place] [id number] Abby Reagan CHRA [facility] Other*[id number] Allergies Active Allergy Reactions Severity Noted Date Comments Molds & Smuts 10/28/2019 documented as of this encounter (statuses as of 02/10/2023) Medications Medication Sig Dispensed Refills Start Date [...] as of this encounter (statuses as of 02/10/2023) Active Problems Problem Noted Date Anxiety state 07/21/2019 Diverticulosis of small intestine withou t hemorrhage 11/04/2016 HTN, goal below 140/90 10/30/2015 Overview: Per HTN Protocol Vitamin D deficiency 06/15/2012 Pure hypercholesterolemia 06/15/2012 Viral warts 06/25/2006 Overview: ICD-10 update of inactive term HISTORY OF TOBACCO USE 04/25/2005 documented as of this encounter (statuses as of 02/10/2023) Resolved Problems Problem Noted Date Resolved Date Essential hypertension, benign 06/08/2012 0 11/02/2015 Overview: Per HTN Protocol documented as of this encounter (statuses as of 02/10/2023) Immunizations Name Administration Dates Next Due COVID-19 mRNA, LNP-s, No Pre serve, 2-Dose Series (Dianwoba) 06/02/2021,06/16/2020,05/26/2020 Pneumococcal Polysaccharide PPV23 (Pneumovax) 10/27/2009(Deferred: Patient [...] Office Visit Family Medicine Sakshi Kraus PA-C [address] [place] [address] Scheduled Orders Name Type Priority Associated Diagnoses Orde r Schedule MYCODE SUBSEQUENT ADULT Lab Routine [facility] Other*[id number] Every 6 Months for 2 Occurrences starting 02/10/2023 until 03/01/2024 Health Maintenance Due Date Last Done Comments [...] 06/08/2012, Additional history exists GFR 02/04/2024 02/03/2023, 0 11/2021, 01/19/2021, Additional history exists Albumin/Creatinine Ratio [...] as of this encounter Visit Diagnoses Diagnosis [facility] Other*[id number] documented in this encounter Care Teams Applications Engineering Manager Relationship Specialty Start Date End Date Sakshi Kraus PA-C [address] [place] [phone] PCP - General Physician Rn Clinical 02/03/23 documented as of this encounter
--- OUTSIDE RECORDS SUMMARY | 2023-04-04 04:22 | External Medical Summary ---
Author Name Unknown Address Unknown Organization [id number] [place] [address] [facility] [place] [address] Laboratory Report Ordering Provider Test Date Status CARA SANFORD 02/03/2023 11:56:04 Final Observation Date Value Abnormality Reference (Units ) Status SYNC LEUKOCYTES IN BLOOD BY AUTOMATED COUNT 02/03/2023 11:56:04 5.15 4.00-10.80 (K/uL) Final Segs 02/03/2023 11:56:04 61.2 40.0-75.0 (%) Final Lymphs % 02/03/2023 11:56:04 29.7 18.0-42.0 (%) Final Monos 02/03/2023 11:56:04 8.3 1.0-11.0 (%) Final Eosinophils 02/03/2023 11:56:04 0.4 0.0-6.0 (%) Final Basos 02/03/2023 11:56:04 0.2 0.0-2.0 (%) Final Immature Granulocyte, Percent 02/03/2023 11:56:04 0.2 0.0-2.0 (%) Final Absolute Segs 02/03/2023 11:56:04 3.15 1.80-7.70 (K/uL) Final Lymphs, absolute 02/03/2023 11:56:04 1.53 1.00-4.80 (K/ul) Final Monos, Abs 02/03/2023 11:56:04 0.43 0.00-1.10 (K/uL) Final Eos, Abs 02/03/2023 11:56:04 0.02 0.00-0.70 (K/uL) Final Basos, Abs 02/03/2023 11:56:04 0.01 0.00-0.20 (K/uL) Final Immature Granulocytes, Number 02/03/2023 11:56:04 0.01 0.00-0.20 (K/uL) Final Performing Location [facility] [place] [address] [facility] [id number]
--- OUTSIDE RECORDS SUMMARY | 2023-04-04 04:22 | External Medical Summary ---
Author Name Unknown Address Unknown Organization [id number]:[facility] [place] [address] [place] [address] Laboratory Report Ordering Provider Test Date Status MIKEY RODRIGUEZ 02/03/2023 11:56:04 Final Observation Date Value Abnormality Reference (Units ) Status MYCODE SPECIMEN-SST 02/03/2023 11:56:04 Freezing of extracted DNA, whole blood and/or serum. Final Performing Location [facility] - [address] [place] [address]
--- OUTSIDE RECORDS SUMMARY | 2023-04-04 04:22 | External Medical Summary ---
Author Name Unknown Address Unknown Organization [id number]:[facility]ORATORY [facility] [place] - [address] [place] [address] Laboratory Report Ordering Provider Test Date Status ORI AGUILAR 02/03/2023 11:56:04 Final Observation Date Value Abnormality Reference (Units ) Status TSH 02/03/2023 11:56:04 0.79 0.27-4.20 (uIU/mL) Final Performing Location [facility]ATORY [facility] [place] - [address] [place] [address]
--- OUTSIDE RECORDS SUMMARY | 2023-04-04 04:22 | External Medical Summary | Summary of Care ---
Author Name Unknown Organization [facility] Address [address] [facility] [place] [address] Phone [phone] Care Team Providers Care Concession Cashier Name Role Phone Richard Rogers DO, Charles Primary Care Provider [phone] Encounter Details Date Type Department Care Team Description 07/27/2019 Hospital Encounter Radiology Film File [address] [place] [address] Allergies Active Allergy Reactions Severity [...] Influenza, Split, I IV3, With Preserve, Inj 01/20/2019,06/08/2012,02/20/2009 TDAP (age 11 and older)(Adacel) 10/27/2009(Defer red: [...] Office Visit Family Medicine Sakshi Kraus PA-C [address] [place] [phone] Health Maintenance Due Date Last Done Comments [...] - MAMMOGRAPHY (IMAGES ONLY, NO REPORT) Routine 07/27/2019 12:00 PM EDT documented in this encounter Results * RADIOLOGY EXAM - MAMMOGRAPHY (IMAGES ONLY, NO REPORT) (07/27/2019 12:00 PM EDT) 07/27/2019 11:5 9 AM EDT Narrative Scheduling, Silent - 02/14/2023 7:22 PM EDT This is an imaging study not interpreted or resulted by a [facility] contracted radiologist. Sakshi Kraus PA-C RAD MAMMOGRAPHY documented in this encounter Care Teams Concession Cashier Relationship Specialty Start Date End Date Gabe Chin DO PCP - General Internal Medicine 07/13/18 07/24/20 documented as of this encounter
--- OUTSIDE RECORDS SUMMARY | 2023-04-04 04:22 | External Medical Summary | Summary of Care ---
Author Name Unknown Organization [facility] Address [address] [facility] [place] [address] Phone [phone] Care Team Providers Care Vice President [employer] Name Role Phone Devin Villegas DO Primary Care Provid er Reason for Visit * Reason Comments Acute Patient is here toda y due to a burn from turkey grease. The burn is on her right thigh and has changed the way it looks per patient. Patient stated the burn stared as bright red and has since darkened and bubbled up. Patient states the burn has not drained at all but bubbled up since. Patient has been keeping it covered and used burn cream. Encounter Details Date Type Department Care Team Description 01/21/2023 Office Visit [address] [id number] Devin Villegas DO [address] [place] [address] [phone] Partial thickness burn of right lower extremity, initial encounter*; HTN, goal below 140/90; Pure hypercholesterolemia Allergies Active Allergy Reactions Severity Noted Date Comments Molds & Smuts 10/28/2019 documented as of this encounter (statuses as of 01/21/2023) Medications Medication Sig Dispensed Refills Start Date End Date Status Topiramate 25 MG Oral Tablet (topAMAX)Indications:Harpreet eda variant, intractable Take by mouth 1 Tablet in the morning AND 1 Tablet before bedtime. Start with 25mg at night for first 7 days. 60 Tablet 0 2 Active Lisinopril 40 MG Oral TabletIndications:HTN, goal below 140/90 Take 1 Tablet (40 mg) by mouth in the morning. 90 Tablet 3 2 Active Propranolol HCl 20 MG Oral Tablet (Inderal)Indications:Harpreet eda variant, intractable Take 1 Tablet by mouth in the morning and 1 Tablet before bedtime. 180 Tablet 1 3 Active Silver sulfADIAZINE 1 % External Cream (Silvadene)Indications:P artial thickness burn of right lower extremity, initial encounter Apply topically to affected area daily. Apply to burn. 400 g 1 3 Active hydroCHLOROthiazide 25 MG Oral Tablet (Hydrodiuril)Indications :HTN, goal below 140/90 Take 1 Tablet (25 mg) by mouth in the morning. 90 Tablet 3 2 01/22/20 23 Discontinu ed(Patient preference /discontin uation) Atorvastatin Calcium 40 MG Oral Tablet (Lipitor)Indications:Pur e hypercholesterolemia Take 1 Tablet (40 mg) by mouth in the morning. 90 Tablet 3 2 01/22/20 23 Discontinu ed(Patient preference /discontin uation) documented as of this encounter (statuses as of 01/21/2023) Active Problems Problem Noted Date Anxiety state 07/21/2019 Diverticulosis of small intestine withou t hemorrhage 11/04/2016 HTN, goal below 140/90 10/30/2015 Overview: Per HTN Protocol Vitamin D deficiency 06/15/2012 Pure hypercholesterolemia 06/15/2012 Viral warts 06/25/2006 Overview: ICD-10 update of inactive term HISTORY OF TOBACCO USE 04/25/2005 documented as of this encounter (statuses as of 01/21/2023) Resolved Problems Problem Noted Date Resolved Date Essential hypertension, benign 06/08/2012 0 11/02/2015 Overview: Per HTN Protocol documented as of this encounter (statuses as of 01/21/2023) Immunizations Name Administration Dates Next Due COVID-19 mRNA, LNP-s, No Pre serve, 2-Dose Series (Pfizer) 06/02/2021,06/16/2020,05/26/2020 Pneumococcal Polysaccharide PPV23 (Pneumovax) 10/27/2009(Deferred: Patient Refused) Seasonal Influenza, Split, I IV3, With Preserve, Inj 02/27/2022,01/20/2019,06/08/2012,02/20 TDAP (age 11 and older)(Adacel) 10/27/2009(Defer red: Patient Refused) Zoster Vaccine Recombinant (Shingrix) 02/05/2021 documented as of this encounter Social History Tobacco Use Types Packs/Day Years Used Date Smoking Tobacco: Former Cigarettes 0.5 20 Smokeless Tobacco: Never Tobacco Cessation:Counseling Given: Not Answered Alcohol Use Standard Drinks/Week Comments Yes 0 [...] on file documented as of this encounter Last Filed Vital Signs Vital Sign Reading Time Taken Comments Blood Pressure 126/72 01/21/2023 2:38 PM EDT Pulse 86 01/21/2023 2:38 PM EDT Temperature 36.5 C (97.7 F) 01/21/2023 2:38 PM ED T Respiratory Rate 16 01/21/2023 2:38 PM EDT Oxygen Saturation 96% 01/21/2023 2:38 PM EDT Inhaled Oxygen Concentration - - Weight 66.8 kg (147 lb 3.2 oz) 01/21/2023 2:38 P M EDT Height - - Body Mass Index 27.81 03/04/2022 2:10 PM EDT documented in this encounter Progress Notes * Devin Villegas, - 01/21/2023 2:43 PM EDT Subjective Sari Anna is a 62 year old female. Chief Complaint Patient presents with Acute Patient is here today due to a burn from turkey grease. The burn is on her right thigh and has changed the way it looks per patient. Patient stated the burn stared as bright red and has since darkened and bubbled up. Patient states the burn has not drained at all but bubbled up since. Patient has been keeping it covered and used burn cream. HPI: Patient presents to office for evaluation of burn injury to her right thigh. Patient states was cooking turkey and accidentally spilled oil on the area. Initially was red, raised and very painful. Developed 1 or 2 blisters in the area that if now seem to shrink in size. Burn area is less tender, less raised and more darkly pigmented. Sensation is still intact in all areas. No other wounds noted. No increased swelling in the area. Patient did have a burn cream that she used at home. Also has been placing Neosporin over with gentle dressing PMH: Patient Active Problem List Diagnosis Code HISTORY OF TOBACCO USE Z87.891 Viral warts B07.9 Vitamin D deficiency E55.9 Pure hypercholesterolemia E78.00 HTN, goal below 140/90 I10 Diverticulosis of small intestine without hemorrhage K57.10 Anxiety state F41.1 Current Outpatient Medications Medication Sig Dispense Refill Topiramate 25 MG Oral Tablet (topAMAX) Take by mouth 1 Tablet in the morning AND 1 Tablet before bedtime. Start with 25mg at night for first 7 days. 60 Tablet 0 Lisinopril 40 MG Oral Tablet Take 1 Tablet (40 mg) by mouth in the morning. 90 Tablet 3 hydroCHLOROthiazide 25 MG Oral Tablet (Hydrodiuril) Take 1 Tablet (25 mg) by mouth in the morning. (Patient not taking: Reported on 01/21/2023) 90 Tablet 3 Atorvastatin Calcium 40 MG Oral Tablet (Lipitor) Take 1 Tablet (40 mg) by mouth in the morning. (Patient not taking: Reported on 01/21/2023) 90 Tablet 3 Propranolol HCl 20 MG Oral Tablet (Inderal) Take 1 Tablet by mouth in the morning and 1 Tablet before bedtime. 180 Tablet 1 No current facility-administered medications for this visit. No past medical history on file. Past Surgical History: Procedure Laterality Date HYSTERECTOMY EDU. Review of patient's allergies indicates: Allergen Reactions Molds & Smuts Family History Problem Relation Age of Onset Stroke Father 2000 Hypertension Father Hypertension Mother No Past Hx Sister No Past Hx Brother No Past Hx Brother No Past Hx Son Other (skin disorders) Aunt (Unspecified) skin cancer Family Status Relation Status Fa (Not Specified) Mo (Not Specified) Sis (Not Specified) Bro (Not Specified) Bro (Not Specified) Son (Not Specified) AUNT (Not Specified) Social History Socioeconomic History Marital status: Spouse name: Not on file Number of children: Not on file Years of education: Not on file Highest education level: Not on file Occupational History Not on file Tobacco Use Smoking status: Former Packs/day: 0.50 Years: 20.00 Pack years: 10.00 Types: Cigarettes Smokeless tobacco: Never Vaping Use Vaping Use: Never used Substance and Sexual Activity Alcohol use: Yes Comment: occas Drug use: No Sexual activity: Yes Partners: Male Other Topics Concern Not on file Social History Narrative Not on file Social Determinants of Health Financial Resource Strain: Not on file Food Insecurity: Not on file Transportation Needs: Not on file Physical Activity: Not on file Stress: Not on file Social Connections: Not on file Intimate Partner Violence: Not on file Housing Stability: Not on file Review of Systems Constitutional: Negative for chills and fever. HENT: Negative for congestion, sore throat and trouble swallowing. Eyes: Negative for photophobia and itching. Respiratory: Negative for apnea and cough. Cardiovascular: Negative for chest pain and palpitations. Gastrointestinal: Negative for abdominal distention, abdominal pain, nausea and vomiting. Genitourinary: Negative for dysuria and frequency. Musculoskeletal: Negative for arthralgias and myalgias. Skin: Positive for rash. Negative for pallor. Neurological: Negative for dizziness, light-headedness and headaches. Psychiatric/Behavioral: Negative for sleep disturbance. The patient is not nervous/anxious. Objective BP 126/72 | Pulse 86 | Temp 36.5 C (97.7 F) (Tympanic) | Resp 16 | Wt 66.8 kg (147 lb 3.2 oz) |SpO2 96% | BMI 27.81 kg/m | BSA 1.7 m Physical Exam Constitutional: General: She is not in acute distress. Appearance: She is not ill-appearing. HENT: Head: Normocephalic and atraumatic. Right Ear: Tympanic membrane, ear canal and external ear normal. Left Ear: Tympanic membrane, ear canal and external ear normal. Nose: Nose normal. No congestion or rhinorrhea. Mouth/Throat: Mouth: Mucous membranes are moist. Pharynx: Oropharynx is clear. Eyes: General: No scleral icterus. Extraocular Movements: Extraocular movements intact. Conjunctiva/sclera: Conjunctivae normal. Pupils: Pupils are equal, round, and reactive to light. Cardiovascular: Rate and Rhythm: Normal rate and regular rhythm. Pulses: Normal pulses. Heart sounds: Normal heart sounds. No murmur heard. No friction rub. No gallop. Pulmonary: Effort: Pulmonary effort is normal. Breath sounds: Normal breath sounds. No wheezing, rhonchi or rales. Abdominal: General: Bowel sounds are normal. There is no distension. Palpations: Abdomen is soft. There is no mass. Tenderness: There is no abdominal tenderness. There is no right CVA tenderness or left CVA tenderness. Musculoskeletal: General: No deformity. Normal range of motion. Cervical back: Normal range of motion and neck supple. Right lower leg: No edema. Left lower leg: No edema. Lymphadenopathy: Cervical: No cervical adenopathy. Skin: General: Skin is warm and dry. Coloration: Skin is not jaundiced. Findings: Erythema present. No rash. Comments: Burn area noted on right anterior thigh. Flat, somewhat tender, no induration, increased pigmentation noted. There is 1 blister that is intact. No wounds Neurological: General: No focal deficit present. Mental Status: She is oriented to person, place, and time. Cranial Nerves: No cranial nerve deficit. Sensory: No sensory deficit. Motor: No weakness. Psychiatric: Mood and Affect: Mood normal. Behavior: Behavior normal. ASSESSMENT/PLAN: Partial thickness burn of right lower extremity, initial encounter (Primary) - Silver sulfADIAZINE 1 % External Cream (Silvadene); Apply topically to affected area daily. Applyto burn. HTN, goal below 140/90 - COMPREHENSIVE METABOLIC PANEL; Future; Expected date: 01/21/2023 - CBC WITH WBC DIFFERENTIAL; Future; Expected date: 01/21/2023 - LIPID PANEL WITH DIRECT LDL IF TG IS HIGH; Future; Expected date: 01/21/2023 - ALBUMIN / CREATININE RATIO, URINE; Future; Expected date: 01/21/2023 Pure hypercholesterolemia - COMPREHENSIVE METABOLIC PANEL; Future; Expected date: 01/21/2023 - CBC WITH WBC DIFFERENTIAL; Future; Expected date: 01/21/2023 - LIPID PANEL WITH DIRECT LDL IF TG IS HIGH; Future; Expected date: 01/21/2023 - ALBUMIN / CREATININE RATIO, URINE; Future; Expected date: 01/21/2023 Plan: Patient presents to office for evaluation of burn injury on her right anterior thigh Noted area of second-degree burn with 1 area of blistering. No signs of secondary infection such ascellulitis. No open wounds. Does seem to be healing slowly Would like to prescribe Silvadene 1% cream to be applied to the area once daily. Will also have herapply Neosporin daily. Should place a light dressing over the area. Counseled to monitor closely for any increased pain, swelling, redness or drainage from the area Will follow-up in 1-2 weeks for recheck Patient also noted that will need a physical/health screen for work by the end of the year. Will order routine labs to evaluate renal function, electrolytes, glucose, lipids. Should fast 10-12 hours prior Continue other medications. Patient states has previously stopped atorvastatin due to muscle aches. Follow Up: Return in about 2 weeks (around 02/04/2023), or if symptoms worsen or fail to improve, for Return with Physician. | For: Return with Physician | Check-out note: Needs 2 week follow up to recheck burn Myself or any provider Fasting labs 1 week prior Devin Villegas DO documented in this encounter Nursing Notes * Rosa Campbell LPN - 01/21/2023 2:42 PM EDT The patient has been properly identified by confirmation of name and date of . Chief Complaint Patient presents with Acute Patient is here today due to a burn from turkey grease. The burn is on her right thigh and has changed the way it looks per patient. Patient stated the burn stared as bright red and has since darkened and bubbled up. Patient states the burn has not drained at all but bubbled up since. Patient has been keeping it covered and used burn cream. documented in this encounter Plan of Treatment Upcoming Encounters Date Type Specialty Care Team Description 02/03/2023 Office Visit Family Medicine Sakshi Kraus PA-C [address] [place] [address] Scheduled Orders Name Type Priority Associated Diagnoses Orde r Schedule COMPREHENSIVE METABOLIC PANEL Lab Routine HTN, goal below 140/90 Pure hypercholesterolemia Expected: 01/21/2023 (Approximate), Expires: 01/21/2024 CBC WITH WBC DIFFERENTIAL Lab Routine HTN, goal below 140/90 Pure hypercholesterolemia Expected: 01/21/2023 (Approximate), Expires: 01/22/2024 LIPID PANEL WITH DIRECT LDL IF TG IS HIGH Lab Routine HTN, goal below 140/90 Pure hypercholesterolemia Expected: 01/21/2023, Expires: 01/22/2024 ALBUMIN / CREATININE RATIO, URINE Lab Routine HTN, goal below 140/90 Pure hypercholesterolemia Expected: 01/21/2023 (Approximate), Expires: 01/21/2024 Health Maintenance Due Date Last Done Comments Albumin/Creatinine Ratio 1979 DTaP,Tdap,and Td Vaccines (1 - Tdap) 1980 Cologuard 2006 Colonoscopy 2006 Sigmoidoscopy 2006 Colorectal Cancer Screening 08/02/2007 Fecal Occult Blood Test 08/02/2007 08/01/2006, 07/04 Mammogram 04/02/2019 04/02/2018, 06/2016, 06/19/2012, Additional history exists Zoster Vaccines (2 of 2) 04/02/2021 02/05/2021 Depression Screening, Annual for Pts 12 and Over 07/25/2021 07/25/2020 COVID-19 Vaccine (4 - Pfizer series) 07/28/2021 06/02/2021, 06/16/2020, 05/26/2020 Influenza Vaccine (FLU shot) (#1) 2023 02/27/2022, 01/20/2019, 06/08/2012, Additional history exists GFR 03/25/2023 03/25/2022, 07/2020, 07/20/2020, Additional history exists Diabetes Screening 03/25/2025 03/25/2022, 0 01/19/2021, 07/20/2020, Additional history exists Lipid Panel 03/25/2027 03/25/2022, 09/0 07/2020, 07/20/2020, Additional history exists GARDASIL-HPV IMMUNIZATION SERIES Aged [...] as of this encounter Visit Diagnoses Diagnosis Partial thickness burn of right lower extremity, initial encounter- Primary HTN, goal below 140/90 Unspecified essential hypertension Pure hypercholesterolemia documented in this encounter Care Teams Vice President [employer] Relationship Specialty Start Date End Date Devin Villegas DO [address] [place] [id number] PCP - General Internal Medicine 07/25/20 documented as of this encounter"
--- OUTSIDE RECORDS SUMMARY | 2023-04-04 04:22 | External Medical Summary ---
Author Name Unknown Address Unknown Organization [id number]:[facility] [place] - [address] [place] [address] Laboratory Report Ordering Provider Test Date Status CARA SANFORD 02/03/2023 11:56:04 Final Normal: <30 mg/g creatinine< br/>High: 30-300 mg/g creatinine
Very High: >300 mg/g creatinine
Nephrotic: >2200 mg/g creatinine Observation Date Value Abnormality Reference (Units) Status Albumin, Urine 02/03/2023 11:56:04 <1.20 (mg/dL) Final Creatinine, Urine 02/03/2023 11:56:04 20 (mg/dL) Final ALBUMIN/CREATININE RATIO, HIDE 02/03/2023 11:56:04 Uninterpretable Albumin/Creatinine ratio due to very low albumin and creatinine values. <30 (mg/g Creat) Final Performing Location [facility] [place] - [address] [place] [address]
--- OUTSIDE RECORDS SUMMARY | 2023-04-04 04:22 | External Medical Summary ---
Author Name Unknown Address Unknown Organization [id number]:[facility] [place] - [address] [facility] [place] [address] Laboratory Report Ordering Provider Test Date Status CARA SANFORD 02/03/2023 11:56:04 Final Observation Date Value Abnormality Reference (Units ) Status BUN 02/03/2023 11:56:04 13 6-20 (mg/dL) Final Creatinine 02/03/2023 11:56:04 0.7 0.5-1.0 (mg/dL) Final Glomerular filtration rate/1.73 sq M.predicted [Volume Rate/Area] in Serum, Plasma or Blood by Creatinine-based formula (CKD-EPI) 02/03/2023 11:56:04 >90 >=60 (mL/min) Final eGFR is calculated based on the CKD-EPI 2020 equation SODIUM 02/03/2023 11:56:04 137 135-146 (m mol/L) Final Potassium 02/03/2023 11:56:04 4.3 3.5-5.1 (m mol/L) Final Cl 02/03/2023 11:56:04 99 98-107 (mm ol/L) Final CO2 02/03/2023 11:56:04 25 22-32 (mmo l/L) Final Anion gap 02/03/2023 11:56:04 13 7-15 (mmol /L) Final Glucose 02/03/2023 11:56:04 97 70-120 (mg /dL) Final Albumin 02/03/2023 11:56:04 4.7 3.8-5.0 (g /dL) Final AST (Aspartate aminotransferase) 02/03/2023 11:56:04 22 10-35 (U/L) Final Result may be falsely elevat ed due to hemolysis. Alk Phos 02/03/2023 11:56:04 78 35-130 (U/ L) Final Bilirubin, Total 02/03/2023 11:56:04 0.6 <=1 .2 (mg/dL) Final Calcium 02/03/2023 11:56:04 9.9 8.4-10.2 ( mg/dL) Final Protein 02/03/2023 11:56:04 7.3 6.0-8.3 (g /dL) Final ALT (Alanine aminotransferase) 02/03/2023 11:56:04 25 10-35 (U/L) Final Performing Location [facility] [place] - [address] [facility] [address]
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
--- OUTSIDE RECORDS SUMMARY | 2023-04-04 04:22 | External Medical Summary ---
Author Name Unknown Address Unknown Organization [id number][place] [place] [address] [facility] [place] [address] Laboratory Report Ordering Provider Test Date Status CARA SANFORD 02/03/2023 11:56:04 Final Observation Date Value Abnormality Reference (Units ) Status Triglyceride 02/03/2023 11:56:04 143 <=174 ( mg/dL) Final Triglyceride Reference Range s (mg/dL):
<150 Acceptable
150-174 Borderline high
175-499 High
>=500 Very high Cholesterol 02/03/2023 11:56:04 308 Above high normal <200 (mg/dL) Final Total Cholesterol Reference Ranges (mg/dL):
<200 Desirable
200-239 Borderline high
>=240 High HDL 02/03/2023 11:56:04 87 >49 (mg/dL ) Final HDL Cholesterol Reference Ra nges (mg/dL):
>=60 High (Desirable)
<50 Low (Undesirable) For Females
<40 Low (Undesirable) For Males NON-HDL CHOLESTEROL 02/03/2023 11:56:04 221 Above high normal <=159 (mg/dL) Final Non-HDL Cholesterol Referenc e Range (mg/dL):
<100 Target level for high risk ASCVD patient
<130 Optimal for general population
130-159 Near optimal for general population
160-189 Borderline High
190-219 High
>=220 Very High LDL, (calculated) 02/03/2023 11:56:04 192 Above high n ormal <=129 (mg/dL) Final LDL Cholesterol Reference Ra nges (mg/dL):
<70 Target level for high risk ASCVD patient
<100 Optimal for general population
100-129 Near optimal for general population
130-159 Borderline high
160-189 High
>=190 Very high Performing Location [facility] [place] [address] [facility] [address]
--- OUTSIDE RECORDS SUMMARY | 2023-04-04 04:22 | External Medical Summary | Summary of Care ---
Author Name Unknown Organization [facility] Address [address] [facility] [place] [address] Phone [phone] Care Team Providers Care Boring Machine Operator Production Name Role Phone Sakshi KrausC Primary Care Provider [phone] Reason for Visit * Reason Comments Outpatient Testing Encounter Details Date Type Department Care Team Description 02/03/2023 Laboratory Laboratory Patient Service [address] [address] [address] [employer] Other*[id number]; HTN, goal below 140/90; Pure hypercholesterolemia; Weight gain; History of hyperglycemia Allergies Active Allergy Reactions Severity Noted Date [...] mRNA, LNP-s, No Pre serve, 2-Dose Series ([employer]) 06/02/2021,06/16/2020,05/26/2020 Pneumococcal Polysaccharide PPV23 (Pneumovax) 10/27/2009(Deferred: Patient [...] Office Visit Family Medicine Sakshi Kraus PA-C [address] [place] [address] Pending Results Name Type Priority Associated Diagnoses Date /Time MYCODE INITIAL ADULT Lab Routine [employer] Other*[id number] 02/03/2023 11:56 AM EDT COMPREHENSIVE METABOLIC PANEL Lab Routine HTN, goal below 140/90 Pure hypercholesterolemia 02/03/2023 11:56 AM EDT CBC WITH WBC DIFFERENTIAL Lab Routine HTN, goal below 140/90 Pure hypercholesterolemia 02/03/2023 11:56 AM EDT LIPID PANEL WITH DIRECT LDL IF TG IS HIGH Lab Routine HTN, goal below 140/90 Pure hypercholesterolemia 02/03/2023 11:56 AM EDT ALBUMIN / CREATININE RATIO, URINE Lab Routine HTN, goal below 140/90 Pure hypercholesterolemia 02/03/2023 11:56 AM EDT TSH WITH FREE T4 IF INDICATED Lab Routine Weight gain 02/03/2023 11:56 AM EDT HEMOGLOBIN A1C Lab Routine Weight gain History of hyperglycemia 02/03/2023 11:56 AM EDT MYCODE INITIAL ADULT-PINK Lab Routine [employer] Other*[id number] 02/03/2023 11:56 AM EDT MYCODE SST1 Lab Routine [employer] Other*[id number] 02/03/2023 11:56 AM EDT MYCODE SST2 Lab Routine [employer] Other*[id number] 02/03/2023 11:56 AM EDT CBC Lab Routine HTN, goal below 140/90 Pure hypercholesterolemia 02/03/2023 11:56 AM EDT DIFFERENTIAL, AUTOMATED Lab Routine HTN, goal below 140/90 Pure hypercholesterolemia 02/03/2023 11:56 AM EDT Health Maintenance Due Date Last Done Comments [...] this encounter Visit Diagnoses Diagnosis [employer] Other*[id number] HTN, goal below 140/90 Unspecified essential hypertension Pure hypercholesterolemia Weight gain Abnormal weight gain History of hyperglycemia Personal history of other endocrine, metabolic, and immunity disorders documented in this encounter Care Teams Boring Machine Operator Production Relationship Specialty Start Date End Date Sakshi Kraus PA-C [address] [place] [address] PCP - General Physician Metal Patternmaker 02/03/23 documented as of this encounter
--- OUTSIDE RECORDS SUMMARY | 2023-04-04 04:22 | External Medical Summary | Summary of Care ---
Author Name Unknown Organization [facility] Address [address] [place] [address] Phone [phone] Care Team Providers Care Adjunct Instructor Name Role Phone Devin Villegas DO Primary Care Provid er Reason for Visit * Reason Onset Date Comments MyCode Consent 01/21/2023 Encounter Details Date Type Department Care Team Description 01/21/2023 Orders Only Outcomes Research Department [address] [place] [address] Leona Rinaldi CHRA [employer] Other*[id number]* Allergies Active Allergy Reactions Severity Noted Date Comments Molds & Smuts 10/28/2019 documented as of this encounter (statuses as of 01/21/2023) Medications Medication Sig Dispensed Refills Start Date End Date Status Topiramate 25 MG Oral Tablet (topAMAX)Indications:Migra ine variant, intractable Take by mouth 1 Tablet in the morning AND 1 Tablet before bedtime. Start with 25mg at night for first 7 days. 60 Tablet 0 03/04/2022 Active hydroCHLOROthiazide 25 MG Oral Tablet (Hydrodiuril)Indications:H TN, goal below 140/90 Take 1 Tablet (25 mg) by mouth in the morning. 90 Tablet 3 04/02/2022 Active Lisinopril 40 MG Oral TabletIndications:HTN, goal below 140/90 Take 1 Tablet (40 mg) by mouth in the morning. 90 Tablet 3 04/02/2022 Active Atorvastatin Calcium 40 MG Oral Tablet (Lipitor)Indications:Pure hypercholesterolemia Take 1 Tablet (40 mg) by mouth in the morning. 90 Tablet 3 04/02/2022 Active Propranolol HCl 20 MG Oral Tablet (Inderal)Indications:Migra ine variant, intractable Take 1 Tablet by mouth in the morning and 1 Tablet before bedtime. 180 Tablet 1 06/07/2022 Active documented as of this encounter (statuses [...] mRNA, LNP-s, No Pre serve, 2-Dose Series ([employer]) 06/02/2021,06/16/2020,05/26/2020 Pneumococcal Polysaccharide PPV23 (Pneumovax) 10/27/2009(Deferred: Patient [...] on file documented as of this encounter Progress Notes * SRINI Prince - 01/21/2023 2:29 PM EDT MyCode Consent Documentation Sari Anna provided consent/authorization to participate in the [employer]. documented in this encounter Plan of Treatment Scheduled Orders Name Type Priority Associated Diagnoses Orde r Schedule MYCODE INITIAL ADULT Lab Routine [employer] Other*[id number] Expected: 01/21/2023 (Approximate), Expires: 02/10/2024 Health Maintenance Due Date Last Done Comments [...] 06/08/2012, Additional history exists GFR 03/25/2023 03/25/2022, 09/0 07/2020, 07/20/2020, Additional history exists Diabetes Screening [...] this encounter Visit Diagnoses Diagnosis [employer] Other*[id number]- Primary documented in this encounter Care Teams Adjunct Instructor Relationship Specialty Start Date End Date Devin Villegas DO [address] [place] [address] [phone] PCP - General Internal Medicine 07/25/20 documented as of this encounter
[2023-04-04 05:13] LABS: Basophils # (auto) 0.01 K/uL (0.00-0.20); Basophils % (auto) 0.2 %; Eosinophils # (auto) 0.05 K/uL (0.00-0.50); Hematocrit (blood only) 38.9 % (37.0-47.0); Hemoglobin 12.9 g/dl (12.0-16.0); Immature Granulocytes # (auto) 0.02 K/uL (0.01-0.20); Immature Granulocytes % (auto) 0.4 %; Lymphocytes % (auto) 28.6 %; Mean Corpuscular Hemoglobin 30.1 pg (25.0-34.0); Mean Corpuscular Hgb Conc 33.2 g/dL (32.0-36.0); Mean Corpuscular Volume 90.7 fL (80.0-100.0); Mean Platelet Volume 9.9 fL (9.4-12.4); Monocytes # (auto) 0.54 K/uL (0.11-0.59); Neutrophils # (auto) 2.88 K/uL (1.40-6.50); Neutrophils % (auto) 58.8 %; Platelet Count 243 K/uL (130-400); RDW Coefficient of Variation 13.4 % (11.5-14.5); RDW Standard Deviation 44.6 fL (36.4-46.3); Red Blood Count 4.29 M/uL (4.20-5.40)
[2023-04-04 05:28] LABS: BUN Creatinine Ratio 29.7 (10-20); Creatinine Clr Calc Pharmacy 72.5 ml/min; Est GFR (African American) 101.3 ml/min; Est GFR (Non-African American) 87.4 ml/min; Potassium 3.8 mmol/L (3.5-5.1)
[2023-04-04] MEDS: ACETAMINOPHEN 1,000 MG/100 ML VIAL IV SCH ×3 (06:18→21:44)
--- NOTE | 2023-04-04 08:48 | Electrocardiogram Report ---
Test Reason : Blood Pressure : / mmHG Vent. Rate : 070 BPM Atrial Rate : 070 BPM P-R Int : 118 ms QRS Dur : 102 ms QT Int : 410 ms P-R-T Axes : 048 -18 020 degrees QTc Int : 442 ms Normal sinus rhythm Incomplete right bundle branch block Borderline ECG When compared with ECG of 03-APR-2023 05:54, Nonspecific T wave abnormality, improved in Anterior leads Confirmed by Fede Puente ([id number]) on 04/04/2023 8:47:54 AM Referred By: REFERRED SELF Confirmed By:Fede Puente
[2023-04-04] MEDS: lisinopril 40 MG TAB PO SCH (09:12)
[2023-04-04] MEDS: ASPIRIN 81 MG ECTAB PO SCH (09:13)
[2023-04-04] MEDS: MAGNESIUM OXIDE 400 MG TAB PO SCH (09:13)
[2023-04-04] MEDS: NIFEdipine EXTENDED REL 30 MG TABCR PO SCH ×2 (09:14→20:48)
[2023-04-04] MEDS ORDERED: hydrALAZINE HCL 20 MG/ML VIAL IV PRN (12:49)
[2023-04-04] MEDS ORDERED: SUMAtriptan succinate 6 MG/0.5 ML VIAL SQ ONE (13:49)
[2023-04-04] MEDS ORDERED: MAGNESIUM SULFATE / D5W 1 GM/100 ML BAG IV ONE (13:50)
[2023-04-04] MEDS ORDERED: LABETALOL HCL IV 5 MG/ML 20ML IV PRN (13:53)
[2023-04-04] MEDS ORDERED: METOPROLOL TARTRATE 50 MG TAB PO SCH (13:55)
[2023-04-04 14:14] LABS: Babesia microti DNA Not Detected (Not Detected)
--- NOTE | 2023-04-04 14:55 | Cardiology Consultation ---
Date of Consultation April 04, 2023 Assessment & Plan (1) Hypertensive emergency: (2) Coronary atherosclerosis: (3) Aortic atherosclerosis: (4) Hypertension goal BP (blood pressure) < 130/80: (5) Dyslipidemia, goal LDL below 70: Plan 65-year-old female presenting with headaches with associated vomiting, hypertensive emergency. Blood pressure 250/132 on presentation. Nonpharmacologic treatment of hypertension discussed including dietary salt restriction, avoidance of NSAIDs, regular aerobic exercise, etc Pharmacological treatment of hypertension discussed in detail with patient and RECOMMENDATIONS: - Discontinue and avoid NSAIDs. - Replace metoprolol tartrate 50 mg twice per day with carvedilol 12.5 mg twice per day to start. - Add hydrochlorothiazide 25 mg/day - Add spironolactone 25 mg/day - Continue lisinopril 40 mg/day - Continue nifedipine 30 mg twice per day for now. - Continue/complete secondary hypertension work-up - Outpatient evaluation for obstructive sleep apnea - Outpatient evaluation for myocardial ischemia after blood pressure is appropriately controlled. - Agree with the addition of aspirin 81 mg/day - Recommend moderate intensity statin therapy - Patient to remain an ex-smoker - Continue telemetry, hospitalization. Supervising Physician Co-Signing Physician Notes 62-year-old female present to the ER with headaches, vomiting, hypertensive william rgency. Headache not markedly improved with medical therapy. Blood pressure trending downward to 145/94 currently. Denies chest pain or heaviness. No palpitations, lightheadedness, or dizziness. ECG demonstrates sinus rhythm with an incomplete right bundle branch block. No ischemic changes. High-sensitivity troponin negative x1 set. PE: Gen: NAD, AAO x3. Heart: Regular rhythm, normal S1-S2. No murmur. Lungs: Clear bilateral, no rales, rhonchi, wheeze. Extremities: No edema. A/P: Agree with above PA-C history, physical exam, assessment and plan. Medication changes recommended including addition of hydrochlorothiazide and spironolactone. Continue lisinopril and nifedipine. Discontinue metoprolol tartrate in favor of carvedilol. Continue telemetry monitoring and ongoing blood pressure assessment per protocol. 2D echocardiogram pending. History of Present Illness Reason for Consultation: Hypertensive urgency Requesting Physician: Dr. Clay Attending Physician: Dr. Clay History of Present Illness Mrs. Sari Anna is a 62-year-old female with history of hypertension, dyslipidemia, and migraine headaches has been feeling poorly over the past week. Patient describes experiencing a significant headache, as though her head is in a vice, feeling and hearing her heart beat in her ears, and vomiting over the past week. No improvement in symptoms despite ibuprofen and NyQuil as an outpatient. Notes testing for COVID x2 at home, both negative. Patient ultimately presented to the [facility] ER on April 02, 2023. Initial blood pressure was 250/132. Neuro exam reported as negative. Patient initially given IV labetalol and hydralazine with improvement. Blood pressure remains uncontrolled despite the current antihypertensive regimen which consists of lisinopril 40 mg/day, nifedipine 30 mg twice per day, and metoprolol tartrate 50 mg twice per day. Aforementioned symptoms remain. Data: - Echo on July 01, 2018 revealed showed normal LV systolic function, EF 55 to 60%. Normal LV wall thickness. No significant valvular pathology. Normal aortic root and ascending aorta. - CT of the abdomen and pelvis in July 07 notable for coronary artery calcifications, normal caliber abdominal aorta with moderate to advanced atherosclerotic calcification - EKG on presentation revealed normal sinus rhythm at 90 bpm with an incomplete right bundle branch block. - Telemetry: Sinus throughout, with heart rates predominantly between 60 and 90 bpm. - Admission chest x-ray: No acute process. - CTA of the head: No acute findings. White matter hypodensity suggestive of small vessel disease. No intracranial aneurysm. No central vessel occlusion. - Renal artery duplex without evidence of renal artery stenosis - Urine catecholamines/metanephrines pending - TSH OK - Creatinine normal. Potassium on the lower side of normal. - Urinalysis without proteinuria or blood. Patient notes no prior cardiac history. She specifically denies history of CAD, AL, CHF, heart murmur, arrhythmia, rheumatic fever, scarlet fever Past Medical and Surgical History: Hypertension. Dyslipidemia. Migraine headaches. Prediabetes. Diverticulitis. Colonoscopy with polypectomy. Osteoarthritis. Hysterectomy. Foot surgery. Family History: Father had a AAA and CVA. Mother with breast cancer, diabetes. Paternal uncle with aneurysm. Social History: Reformed smoker, quit 8 years ago. Social alcohol. No illegal drug use. . 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 Allergies Allergy/AdvReac Type Severity Reaction Status Date / Time MOLD Allergy Intermediate EYES BURN Uncoded 04/02/23 11:22 AND SWELLING TIDE LAUNDRY DETERGENT Allergy Intermediate Rash Uncoded 04/02/23 11:22 Home Medications Medication Instructions Recorded Confirmed Type diphenhydramine 25 1 tab PO HS PRN Pain 06/25/18 04/02/23 History mg-acetaminophen 500 mg tablet (Tylenol PM Extra Strength) lisinopril 40 mg tablet 40 mg PO QAM 04/02/23 04/02/23 History Patient History Medical History Pre-diabetes Osteoarthritis Hypertension Hypercholesterolemia Surgical History Status post colonoscopy History of hysterectomy History of colonoscopy History of foot surgery Family History Father Hypertension Stroke Mother Hypertension Social History Smoking Status: Former smoker Tobacco Type: Cigarettes Second Hand Exposure: No; Do You Dip or Chew Tobacco: No; Hx Alcohol Use: No Hx Substance Use: No Preferred Language: Maltese Communication Ability: Effective Dining Chair Seat Cushion Trimmer Required: No Beliefs That Will Affect Care: None marital status: Current Living Situation: Spouse current occupational status: employed Feels Safe at Home: Yes Assistive Devices: None Review of Systems Review of Systems: Complete review of systems is otherwise as stated above, negative, noncontributory Physical Exam Physical Exam: General: A&Ox3. NAD. HENT: Normocephalic. Atraumatic. Eyes: PER. Conjunctiva pink, sclera clear. Neck: Carotid bruits. No JVD. No HJR. Heart: RRR, 90 bpm. No murmur. No rub. No gallop. Lungs: Clear to auscultation. Abdomen: +BS. Soft. Nontender. No masses or organomegaly. Extremities: No radial femoral delay. No clubbing, cyanosis, or edema. Limited neurological examination is without focal deficits. Pulses: radial=2/4, posterior tibial=2/4. Results & Data Vital Signs (Past 12 Hours) Vital Signs Temp Pulse Pulse Resp BP BP Pulse Ox 04/04/23 12:27 36.7 C 78 18 187/104 H 169/108 H 94 04/04/23 08:07 36.4 C L 69 20 128/88 95 04/04/23 07:36 67 O2 Del Method 04/04/23 12:27 Room Air 04/04/23 08:07 Room Air 04/04/23 07:36 Laboratory Results CBC 04/04/23 Range/Units 04:55 WBC 4.90 (4.8-10.8) K/ul RBC 4.29 (4.20-5.40) M/uL Hgb 12.9 (12.0-16.0) g/dl Hct 38.9 (37.0-47.0) % Plt Count 243 (130-400) K/uL Neut # (Auto) 2.88 (1.40-6.50) K/uL Lymph # (Auto) 1.40 (1.20-3.40) K/uL [place] # (Auto) 0.54 (0.11-0.59) K/uL Eos # (Auto) 0.05 (0.00-0.50) K/uL Baso # (Auto) 0.01 (0.00-0.20) K/uL Comprehensive Metabolic Panel 04/04/23 Range/Units 04:55 Sodium 140 (136-145) mmol/L Potassium 3.8 (3.5-5.1) mmol/L Chloride 109 H (98-107) mmol/L Carbon Dioxide 24 (21-32) mmol/L BUN 22 (6-23) mg/dl Creatinine 0.74 (0.6-1.2) mg/dl Glucose 92 (70-99(Fasting)) mg/dl Calcium 9.0 (8.6-10.3) mg/dl Intake and Output 04/04/23 04/04/23 04/04/23 06:59 14:59 22:59 Intake Total 100 / 100 Balance 100 / 100 Intake: IV 100 / 100 Acetaminophen 1,000 mg In 100 100 / 100 ml @ 400 mls/hr IV Q8H [facility] Rx#: [id number] Other: Weight 65.6 kg Weight Measurement Method Standing Scale (2) Coronary atherosclerosis Associated angina: without angina Coronary Disease-Associated Artery/Lesion type: [place] artery [place] vs. transplanted heart: [place] heart Qualified Code(s): I25.10 - Atherosclerotic heart disease of [place] coronary artery without angina pectoris
[2023-04-04] MEDS ORDERED: hydroCHLOROthiazide 25 MG TAB PO ONE (15:24)
[2023-04-04] MEDS: carvediloL 12.5 MG TAB PO SCH (16:36)
[2023-04-04] MEDS: SPIRONOLACTONE 25 MG TAB PO SCH (16:36)
--- NOTE | 2023-04-04 17:54 | Hospitalist Progress Note ---
Date of Service April 04, 2023 Assessment & Plan (1) Hypertensive emergency: (2) Migraine: Plan Patient is a 62 yr female with H/O HTN, HLD, prediabetes and migraine who presents to ED 2/2 Headache x 6 days. Hypertensive Emergency --Head CTA as below --Renal.Artery Duplex:No evidence for renal artery stenosis. --Work-up for secondary hypertension pending --Normal TSH --ECHO: EF 60 to 65%. Mild concentric LVH. Grade 1 diastolic dysfunction. Trace mitral regurgitation. Trace tricuspid regurgitation. Doppler findings do not suggest pulmonary hypertension --cardene gtt discontinued -- Continue lisinopril 40 mg daily -- Increase nifedipine 30 mg twice daily --Started on hydrochlorothiazide 25 mg daily and Coreg 12.5 mg twice daily --Also started on Aldactone 25 mg daily Needs sleep study as outpatient Needs outpatient stress test Migraine --Head CTA:No acute intracranial findings. White matter hypodensities suggestive of small vessel disease. No intracranial aneurysm. No central vessel occlusion. Vascular opacification suboptimal but no significant abnormality identified. Moderate atherosclerotic plaque within the cavernous carotids without stenosis. --Received reglan, benadryl and Solumedrol, sumatriptan given x 1 --BP control -- Counseled on importance of sleep, avoiding triggers --Continue Tylenol --Will start on magnesium, vitamin B2 -- Clinically improving Peripheral artery disease --Head CTA:No acute intracranial findings. White matter hypodensities suggestive of small vessel disease. No intracranial aneurysm. No central vessel occlusion. Vascular opacification suboptimal but no significant abnormality identified. Moderate atherosclerotic plaque within the cavernous carotids without stenosis. -- Started on Lipitor, aspirin -- Advised lifestyle changes H/O polypectomy Advised to follow-up with any bleeding issues while started on aspirin HLD not on any medications Lipid Panel on 02/03 was Total 308, LDL, 192 and HDL 87 Started on Lipitor 20mg HS Prediabetes HbA1c 5.8 on 02/03 Recommend diet and lifestyle modifications at discharge DVT Px: SCDs for now Encourage to ambulate Code Status FULL CODE Admission and Anticipated Discharge Date Admission Date: April 02, 2023 Subjective Patient is seen and examined at bedside Headache improved this morning but later worsened with elevation of blood pressure No other complaints Denies any chest pain, dyspnea, dizziness, nausea Review of Systems Review of Systems: All systems reviewed & are unremarkable except as noted in Subjective Physical Exam Physical Exam: Physical Exam: Vitals signs as noted above General Appearance:Moderately built and nourished, no apparent distress Head: normocephalic, Atraumatic Eyes: normal inspection, EOMI Neck: supple, Trachea midline Respiratory/Chest: Normal breath sounds, CTA, No accessory muscle use Cardiovascular: S1, S2, No murmur Abdomen/GI:Soft, Non tender, Bowel sounds present Extremities/Musculoskeletal:normal inspection, no edema Neurologic/Psych:AAOX3, grossly no focal neurological deficits Skin: normal color, warm Results & Data Results & Data Vital Signs (Past 12 Hours) Vital Signs Temp Pulse Pulse Resp BP BP Pulse Ox 04/04/23 17:00 36.6 C 72 20 145/94 H 94 04/04/23 16:41 36.8 C 71 18 150/100 H 94 04/04/23 16:00 92 H 04/04/23 16:00 04/04/23 15:20 160/98 H 04/04/23 12:27 36.7 C 78 18 187/104 H 169/108 H 94 04/04/23 08:07 36.4 C L 69 20 128/88 95 04/04/23 07:36 67 Pulse Ox O2 Del Method O2 Del Method 04/04/23 17:00 Room Air 04/04/23 16:41 Room Air 04/04/23 16:00 04/04/23 16:00 94 Room Air 04/04/23 15:20 04/04/23 12:27 Room Air 04/04/23 08:07 Room Air 04/04/23 07:36 Laboratory Results Short CBC 04/04/23 Range/Units 04:55 WBC 4.90 (4.8-10.8) K/ul Hgb 12.9 (12.0-16.0) g/dl Hct 38.9 (37.0-47.0) % Plt Count 243 (130-400) K/uL BMP 04/04/23 04:55 Sodium 140 Potassium 3.8 Chloride 109 H Carbon Dioxide 24 BUN 22 Creatinine 0.74 Glucose 92 Calcium 9.0
[2023-04-04] MEDS: MELATONIN 3 MG TAB PO PRN (20:47)
[2023-04-04] MEDS: ATORVASTATIN 20 MG TAB PO SCH (20:48)
[2023-04-04] MEDS ORDERED: traMADol HCL 50 MG TABLET PO PRN (21:06)
--- NOTE | 2023-04-04 21:44 | CT Scan Report ---
CT SCAN OF THE BRAIN WITHOUT IV CONTRAST CLINICAL HISTORY: Headache. COMPARISON STUDY: CT of the brain dated 04/02/2023. TECHNIQUE: Unenhanced axial CT scan of the brain is performed from the vertex to the skull base. A do se lowering technique was utilized adhering to the principles of ALARA. FINDINGS: Brain parenchyma: There is age-related involutional change noting [id number] subcortical and pe riventricular microangiopathic disease. There is no hemorrhage, mass effect, or evidence of acute ter ritorial ischemia by CT criteria. [place]-white matter differentiation is preserved. No extra-axial flui d collection is seen. Ventricles, sulci, cisterns: Prominent secondary to involutional change. Intracranial vasculature: There is atherosclerotic calcification of the cavernous carotid arteries. Calvarium: Unremarkable. Sinuses and mastoids: The visualized paranasal sinuses are clear. There is trace mastoid effusions. C erumen is noted in the left external auditory canal. Orbits: The bony orbits are grossly intact. IMPRESSION: There is no hemorrhage, mass effect, or evidence of acute territorial ischemia by CT lynne coyne. ACT 112: Negative or not required by law. Electronically signed by: Sammy Sow M.D. 04/04/2023 9:43 PM
--- NOTE | 2023-04-04 21:58 | CT Scan Report ---
CT SCAN OF THE CERVICAL SPINE CLINICAL HISTORY: Atraumatic neck pain. COMPARISON STUDY: No priors. TECHNIQUE: CT scan of the cervical spine is performed from the skull base to the upper thoracic spine . Images are reviewed in the axial, sagittal, and coronal planes. IV contrast was not administered fo r this examination. A dose lowering technique was utilized adhering to the principles of ALARA. CT DOSE: 2135.14 mGy.cm FINDINGS: Skeletal structures: The skeletal structures are osteopenic. There is no evidence of fracture or subl uxation involving the cervical spine. Vertebral body height and alignment are maintained. There is s traightening of the cervical lordosis. Anterior osteophytes are seen throughout. The odontoid process and lateral masses are intact. The atlantoaxial articulation is preserved. The spinous processes jaki ear intact. Intervertebral discs: There is moderate disc space narrowing at C5-C6 and C6-C7. The remaining disc s paces appear maintained Central canal: Posterior disc osteophyte complexes at C5-C6 and C6-C7 may contribute to acquired comp romise of the central canal. Soft tissues: The prevertebral and paraspinous soft tissues are within normal limits. There is athero sclerotic calcification of the carotid bulbs. Calvarium: The visualized calvarium at the skull base appears intact. Brain parenchyma: Partially visualized brain parenchyma at the skull base is within normal limits. Sinuses and mastoids: The visualized paranasal sinuses are clear. There are small mastoid effusions. Cerumen is noted in the left external auditory canal. Lung apices: Clear as visualized. IMPRESSION: No acute bony abnormality is seen involving the cervical spine. ACT 112: Negative or not required by law. Electronically signed by: Sammy Sow M.D. 04/04/2023 9:56 PM
[2023-04-04] MEDS: hydrOXYzine HCl 10 MG TAB PO PRN (22:07)
--- NOTE | 2023-04-04 22:16 | CT Scan Report ---
CT SCAN OF THE THORACIC SPINE WITHOUT CONTRAST CLINICAL HISTORY: Atraumatic thoracic back pain. COMPARISON STUDY: No priors. TECHNIQUE: CT scan of the thoracic spine is performed from the lower cervical spine to the upper lum bar spine. Images are reviewed in the axial, sagittal, and coronal planes. IV contrast was not admini stered for this examination. A dose lowering technique was utilized adhering to the principles of AL VITOR. FINDINGS: The skeletal structures are osteopenic. There is no evidence of fracture or malalignment in volving the thoracic spine. Vertebral body height and alignment are maintained throughout the thoraci c spine. Tiny anterior osteophytes are seen throughout. The transverse and spinous processes appear i ntact. No lytic or blastic lesion is seen. The disc spaces appear maintained. There is no CT evidence of large disc herniation or central canal stenosis. The paraspinous soft tissues are normal as image d. The imaged lung parenchyma appears clear noting dependent atelectasis. The visualized posterior ri bs appear intact. IMPRESSION: No acute bony abnormality is seen involving the thoracic spine. ACT 112: Negative or not required by law. Electronically signed by: Sammy Sow M.D. 04/04/2023 10:14 PM
[2023-04-05 04:50] LABS: Basophils # (auto) 0.01 K/uL (0.00-0.20); Basophils % (auto) 0.2 %; Eosinophils # (auto) 0.03 K/uL (0.00-0.50); Eosinophils % (auto) 0.6 %; Hematocrit (blood only) 40.5 % (37.0-47.0); Hemoglobin 13.3 g/dl (12.0-16.0); Immature Granulocytes # (auto) 0.01 K/uL (0.01-0.20); Immature Granulocytes % (auto) 0.2 %; Lymphocytes # (auto) 1.22 K/uL (1.20-3.40); Lymphocytes % (auto) 23.4 %; Mean Corpuscular Hgb Conc 32.8 g/dL (32.0-36.0); Mean Corpuscular Volume 91.4 fL (80.0-100.0); Mean Platelet Volume 10.1 fL (9.4-12.4); Monocytes # (auto) 0.57 K/uL (0.11-0.59); Monocytes % (auto) 10.9 %; Neutrophils # (auto) 3.38 K/uL (1.40-6.50); Neutrophils % (auto) 64.7 %; Platelet Count 282 K/uL (130-400); RDW Coefficient of Variation 13.2 % (11.5-14.5); RDW Standard Deviation 44.6 fL (36.4-46.3); Red Blood Count 4.43 M/uL (4.20-5.40); White Blood Count 5.22 K/ul (4.8-10.8)
[2023-04-05 05:03] LABS: Calcium 9.6 mg/dl (8.6-10.3); Magnesium 2.2 mg/dl (1.7-2.4)
[2023-04-05 05:08] LABS: BUN Creatinine Ratio 26.7 (10-20); Creatinine Clr Calc Pharmacy 89.7 ml/min; Est GFR (Non-African American) 98.4 ml/min
[2023-04-05] MEDS ORDERED: oxyCODONE HCL IR 5 MG TAB (IMMEDIATE RELEASE) PO STA (05:48)
[2023-04-05] MEDS: ACETAMINOPHEN 1,000 MG/100 ML VIAL IV SCH ×2 (06:01→14:07)
[2023-04-05] MEDS: NIFEdipine EXTENDED REL 30 MG TABCR PO SCH ×2 (09:27→20:13)
[2023-04-05] MEDS: SPIRONOLACTONE 25 MG TAB PO SCH (09:27)
[2023-04-05] MEDS: hydroCHLOROthiazide 25 MG TAB PO SCH (09:28)
[2023-04-05] MEDS: lisinopril 40 MG TAB PO SCH (09:28)
[2023-04-05] MEDS: carvediloL 12.5 MG TAB PO SCH ×2 (09:28→17:31)
[2023-04-05] MEDS: MAGNESIUM OXIDE 400 MG TAB PO SCH (09:28)
[2023-04-05] MEDS: ASPIRIN 81 MG ECTAB PO SCH (09:28)
[2023-04-05] MEDS: oxyCODONE HCL IR 5 MG TAB (IMMEDIATE RELEASE) PO PRN (10:16)
--- NOTE | 2023-04-05 14:10 | Cardiology Progress Note ---
Date of Service April 05, 2023 Assessment & Plan (1) Hypertensive emergency: (2) Coronary atherosclerosis: (3) Aortic atherosclerosis: (4) Hypertension goal BP (blood pressure) < 130/80: (5) Dyslipidemia, goal LDL below 70: Plan 65-year-old female presenting with headaches with associated vomiting, hypertensive emergency. Blood pressure 250/132 on presentation. Nonpharmacologic treatment of hypertension discussed including dietary salt restriction, avoidance of NSAIDs, regular aerobic exercise, etc Pharmacological treatment of hypertension discussed in detail with patient and RECOMMENDATIONS: - Discontinue and avoid NSAIDs. - continue coreg 12.5mg bid - continue hydrochlorothiazide 25 mg/day - continue spironolactone 25 mg/day - Continue lisinopril 40 mg/day - Continue nifedipine 30 mg twice per day for now. - Continue/complete secondary hypertension work-up - Outpatient evaluation for obstructive sleep apnea - Outpatient evaluation for myocardial ischemia after blood pressure is appropriately controlled. - Agree with the addition of aspirin 81 mg/day - Recommend moderate intensity statin therapy - Patient to remain an ex-smoker - Continue telemetry, hospitalization. Migraine -consider adding back coffee. Pt notes that she drinks 7-10 coffees per day. I provided 55 min of care to the patient and discussed management of hypertensive emergency. Admission and Anticipated Discharge Date Admission Date: April 02, 2023 Subjective Patient is seen and examined at bedside Still has a headache despite improved BP. No other complaints Denies any chest pain, dyspnea, dizziness, nausea Review of Systems Review of Systems: Complete review of systems is otherwise as stated above, negative, noncontributory Physical Exam Physical Exam: General: A&Ox3. NAD. HENT: Normocephalic. Atraumatic. Eyes: PER. Conjunctiva pink, sclera clear. Neck: Carotid bruits. No JVD. No HJR. Heart: RRR, 90 bpm. No murmur. No rub. No gallop. Lungs: Clear to auscultation. Abdomen: +BS. Soft. Nontender. No masses or organomegaly. Extremities: No radial femoral delay. No clubbing, cyanosis, or edema. Limited neurological examination is without focal deficits. Pulses: radial=2/4, posterior tibial=2/4. Results & Data Vital Signs (Past 12 Hours) Vital Signs Temp Pulse Pulse Resp BP BP Pulse Ox 04/05/23 11:11 37.0 C 62 17 99/67 L 95 04/05/23 07:53 70 04/05/23 07:50 36.6 C 64 18 102/65 96 04/05/23 05:56 122/85 04/05/23 04:31 36.5 C 72 16 136/95 95 O2 Del Method 04/05/23 11:11 Room Air 04/05/23 07:53 04/05/23 07:50 Room Air 04/05/23 05:56 04/05/23 04:31 Room Air Results BMP Results: Sodium 138 mmol/L (136-145) 04/05/23 Potassium 4.0 mmol/L (3.5-5.1) 04/05/23 Chloride 107 mmol/L (98-107) 04/05/23 Carbon Dioxide 25 mmol/L (21-32) 04/05/23 Anion Gap 6 (3-11) 04/05/23 BUN 16 mg/dl (6-23) 04/05/23 Creatinine 0.60 mg/dl (0.6-1.2) 04/05/23 Glucose 96 mg/dl (70-99(Fasting)) 04/05/23 Results Complete Blood Count Results: RBC 4.43 M/uL (4.20-5.40) 04/05/23 WBC 5.22 K/ul (4.8-10.8) 04/05/23 Hgb 13.3 g/dl (12.0-16.0) 04/05/23 Hct 40.5 % (37.0-47.0) 04/05/23 Plt Count 282 K/uL (130-400) 04/05/23 (2) Coronary atherosclerosis Coronary Disease-Associated Artery/Lesion type: [place] artery [place] vs. transplanted heart: [place] heart Associated angina: without angina Qualified Code(s): I25.10 - Atherosclerotic heart disease of [place] coronary artery without angina pectoris
[2023-04-05] MEDS ORDERED: BUTALBITAL/ACETAMIN/CAFFEINE TAB PO PRN (14:32)
[2023-04-05] MEDS ORDERED: KETOROLAC TROMETHAMINE 15 MG/ML VIAL IV ONE (15:14)
[2023-04-05] MEDS ORDERED: GADOBUTROL 65ML VIAL IV ONE (15:24)
--- NOTE | 2023-04-05 15:49 | Neurology Consultation ---
Date of Consultation April 05, 2023 Assessment & Plan (1) Migraine: Suspect chronic migraines with a recent status migrainosus, better controlled now Plan -Agree with current management -Continue magnesium 400mg bid -Riboflavin 400mg daily -Consider starting Topamax 50mg daily at bed time for migraine prevention -Avoid triptans -Consider Fioricet for migraine abortive treatment . -Follow up with neurology as outpatient Telehealth Consultation Telehealth Information Telehealth Information: I performed this visit using a real-time telehealth connection between my location and the patients location ([facility]). After connecting through interactive tele-video, patient was identified by name and date of and/or wristband check.Patient (or authorized healthcare national account representative) was informed that this was a telemedicine visit and it was being conducted confidentially over secure lines. My office door was closed and no on e else was present in the room with me.Patient (or authorized healthcare national account representative) provided consent to proceed with the visit, expressed an understanding of privacy and security of the telemedicine visit, and gave permission to have a hospital national account representative in the room in order to assist with the visit and to conduct portions of the visit, as needed. I informed the patient (or authorized healthcare national account representative) that I reviewed their record and presented the opportunity for them to ask any questions regarding the visit today. The patient agreed to participate. History of Present Illness Reason for Consultation: Headaches Requesting Physician: Dr Clay Attending Physician: Robert Clay MD History of Present Illness The patient is a62 Y.o female patient with a PMH of HTN , HLP ,CAD, prediabetes and migraine headaches . Presenting to ED with severe headaches that had started 6 days earlier , started on a Friday and peaked on Friday . Headaches are bitemporal and involves the back of the head in addition dull aching to sharp, associated with photophobia and phonophobia. She reports never being on any migraine preventing treatment , only abortive treatments like Fioricet . denies any current neurological deficits , rates current pain level at 4/10. Her blood pressure has been better controlled . Allergies Allergy/AdvReac Type Severity Reaction Status Date / Time No Known Drug Allergies Allergy . Verified 04/05/23 05:51 Home Medications Medication Instructions Recorded Confirmed Type diphenhydramine 25 1 tab PO HS PRN Pain 06/25/18 04/02/23 History mg-acetaminophen 500 mg tablet (Tylenol PM Extra Strength) lisinopril 40 mg tablet 40 mg PO QAM 04/02/23 04/02/23 History Patient History Medical History Pre-diabetes Osteoarthritis Hypertension Hypercholesterolemia Surgical History Status post colonoscopy History of hysterectomy History of colonoscopy History of foot surgery Family History Father Hypertension Stroke Mother Hypertension Social History Smoking Status: Former smoker Tobacco Type: Cigarettes Second Hand Exposure: No; Do You Dip or Chew Tobacco: No; Hx Alcohol Use: No Hx Substance Use: No Preferred Language: Yakut Communication Ability: Effective Manager Multimedia Required: No Beliefs That Will Affect Care: None marital status: Current Living Situation: Spouse current occupational status: employed Feels Safe at Home: Yes Assistive Devices: None Review of Systems Constitutional: Patient denies weight loss, fever, chills, and night sweats Eyes: Patient denies change in vision, tearing, pain, and redness ENT: Patient denies pain, bleeding, rhinorrhea, and dysphagia Cardiovascular: Patient denies chest pain, palpitation, dyspnea at rest, and dyspnea with exertion Respiratory: Patient denies shortness of breath, cough, wheezing, and productive cough GI: Patient denies reflux, pain, constipation, and diarrhea Skin: Patient denies rash, dryness, and itching Allergies/Immune System: Patient denies rhinorrhea, seasonal allergies, reaction to current MEDS, and joint swelling Endocrine: Patient denies weight loss, weight gain, temperature intolerance, and excessive thirst Neurological: All negative unless mentioned in the HPI Physical Exam General NEUROLOGIC EXAMINATION: Mental Status:alert, oriented to time, place, person, normal recent memory, normal remote memory, normal attention span, normal concentration, normal language and normal fund of knowledge Cranial Nerves: CN 2 - no visual defect on confrontation and pupils round, equal, reactive to light CN 3, 4, 6 - extra-ocular movements intact and no nystagmus CN 5 - facial sensation intact CN 7 - no facial asymmetry CN 8 - intact hearing CN 9, 10 - palate symmetric, normal gag CN 11 - good shoulder shrug CN 12 - tongue midline MOTOR: Strength was at least antigravity throughout, Pronator drift was absent and There were no abnormal movements SENSATION: intact and symmetric to pinprick, light touch, vibration and joint position GAIT: stable, no ataxia and can perform tandem walking COORDINATION: no ataxia with finger to nose testing and heel to heath testing REFLEXES: cannot assess over telemedicine Results & Data Vital Signs (Past 12 Hours) Vital Signs Temp Pulse Pulse Resp BP BP Pulse Ox 04/05/23 15:28 69 04/05/23 11:11 37.0 C 62 17 99/67 L 95 04/05/23 07:53 70 04/05/23 07:50 36.6 C 64 18 102/65 96 04/05/23 05:56 122/85 04/05/23 04:31 36.5 C 72 16 136/95 95 O2 Del Method 04/05/23 15:28 04/05/23 11:11 Room Air 04/05/23 07:53 04/05/23 07:50 Room Air 04/05/23 05:56 04/05/23 04:31 Room Air Laboratory Results Laboratory Results - last 24 hr 04/05/23 04:24 WBC 5.22 RBC 4.43 Hgb 13.3 Hct 40.5 MCV 91.4 MCH 30.0 MCHC 32.8 RDW Std Deviation 44.6 RDW Coeff of Jesus 13.2 Plt Count 282 MPV 10.1 Immature Gran % (Auto) 0.2 Neut % (Auto) 64.7 Lymph % (Auto) 23.4 [place] % (Auto) 10.9 Eos % (Auto) 0.6 Baso % (Auto) 0.2 Neut # (Auto) 3.38 Lymph # (Auto) 1.22 [place] # (Auto) 0.57 Eos # (Auto) 0.03 Baso # (Auto) 0.01 Immature Gran # (Auto) 0.01 Sodium 138 Potassium 4.0 Chloride 107 Carbon Dioxide 25 Anion Gap 6 BUN 16 Creatinine 0.60 Est Cr Clr Drug Dosing 89.7 Est GFR ( Amer) 114.0 Est GFR (Non-Af Amer) 98.4 BUN/Creatinine Ratio 26.7 H Glucose 96 Calcium 9.6 Magnesium 2.2 Diagnostic Findings Cervical Spine CT 04/04/23 21:04 CT SCAN OF THE CERVICAL SPINE CLINICAL HISTORY: Atraumatic neck pain. COMPARISON STUDY: No priors. TECHNIQUE: CT scan of the cervical spine is performed from the skull base to the upper thoracic spine. Images are reviewed in the axial, sagittal, and coronal planes. IV contrast was not administered for this examination. A dose lowering technique was utilized adhering to the principles of ALARA. CT DOSE: 2135.14 mGy.cm FINDINGS: Skeletal structures: The skeletal structures are osteopenic. There is no evidence of fracture or subluxation involving the cervical spine. Vertebral body height and alignment are maintained. There is straightening of the cervical lordosis. Anterior osteophytes are seen throughout. The odontoid process and lateral masses are intact. The atlantoaxial articulation is preserved. The spinous processes appear intact. Intervertebral discs: There is moderate disc space narrowing at C5-C6 and C6-C7. The remaining disc spaces appear maintained Central canal: Posterior disc osteophyte complexes at C5-C6 and C6-C7 may contribute to acquired compromise of the central canal. Soft tissues: The prevertebral and paraspinous soft tissues are within normal limits. There is atherosclerotic calcification of the carotid bulbs. Calvarium: The visualized calvarium at the skull base appears intact. Brain parenchyma: Partially visualized brain parenchyma at the skull base is within normal limits. Sinuses and mastoids: The visualized paranasal sinuses are clear. There are small mastoid effusions. Cerumen is noted in the left external auditory canal. Lung apices: Clear as visualized. IMPRESSION: No acute bony abnormality is seen involving the cervical spine. ACT 112: Negative or not required by law. Electronically signed by: Sammy Sow M.D. 04/04/2023 9:[address] 04/04/23 21:04 CT SCAN OF THE BRAIN WITHOUT IV CONTRAST CLINICAL HISTORY: Headache. COMPARISON STUDY: CT of the brain dated 04/02/2023. TECHNIQUE: Unenhanced axial CT scan of the brain is performed from the vertex to the skull base. A dose lowering technique was utilized adhering to the principles of ALARA. FINDINGS: Brain parenchyma: There is age-related involutional change noting [id number] subcortical and periventricular microangiopathic disease. There is no hemorrhage, mass effect, or evidence of acute territorial ischemia by CT criteria. Sierra-white matter differentiation is preserved. No extra-axial fluid collection is seen. Ventricles, sulci, cisterns: Prominent secondary to involutional change. Intracranial vasculature: There is atherosclerotic calcification of the cavernous carotid arteries. Calvarium: Unremarkable. Sinuses and mastoids: The visualized paranasal sinuses are clear. There is trace mastoid effusions. Cerumen is noted in the left external auditory canal. Orbits: The bony orbits are grossly intact. IMPRESSION: There is no hemorrhage, mass effect, or evidence of acute territorial ischemia by CT criteria. ACT 112: Negative or not required by law. Electronically signed by: Sammy Sow M.D. 04/04/2023 9:43 PM Medications Administered Home Medications Medication Instructions Recorded Confirmed Last Taken diphenhydramine 25 1 tab PO HS PRN Pain 06/25/18 04/02/23 06/24/18 21:00 mg-acetaminophen 500 mg tablet (Tylenol PM Extra Strength) lisinopril 40 mg tablet 40 mg PO QAM 04/02/23 04/02/23 Unknown Active Medications Generic Name Dose Route Start Last Admin Trade Name Freq PRN Reason Stop Dose Admin Aspirin 81 mg 04/04/23 09:00 04/05/23 09:28 Aspirin 81 Mg Ectab PO 05/04/23 08:59 81 mg QAM CAMILO Administration Atorvastatin Calcium 20 mg 04/03/23 21:00 04/04/23 20:48 Atorvastatin 20 Mg Tab PO 05/03/23 20:59 20 mg HS CAMILO Administration Carvedilol 12.5 mg 04/04/23 17:00 04/05/23 09:28 Carvedilol 12.5 Mg Tab PO 05/04/23 16:59 12.5 mg BIDM CAMILO Administration Hydrochlorothiazide 25 mg 04/05/23 09:00 04/05/23 09:28 Hydrochlorothiazide 25 Mg Tab PO 05/05/23 08:59 25 mg QAM CAMILO Administration Hydroxyzine HCl 10 mg 04/04/23 20:08 04/04/23 22:07 Hydroxyzine Hcl 10 Mg Tab PO 05/04/23 20:07 10 mg QID PRN Administration Anxiety Acetaminophen 1,000 mg in 100 mls @ 400 mls/hr 04/02/23 22:00 04/05/23 14:30 Ofirmev IV 04/05/23 21:59 Infused Q8H CAMILO Infusion Lisinopril 40 mg 04/03/23 16:15 11/18/23 09:28 Lisinopril 40 Mg Tab PO 05/03/23 16:14 40 mg QAM CAMILO Administration Magnesium Oxide 400 mg 04/03/23 15:45 04/05/23 09:28 Magnesium Oxide 400 Mg Tab PO 05/03/23 15:44 400 mg QAM CAMILO Administration Melatonin 6 mg 04/04/23 19:49 04/04/23 20:47 Melatonin 3 Mg Tab PO 05/02/23 22:39 6 mg HS PRN Administration Sleep Naproxen 500 mg 04/02/23 17:50 04/03/23 20:55 Naproxen 250 Mg Tab PO 05/02/23 17:49 500 mg BID PRN Administration Headache or Pain Nifedipine 30 mg 04/04/23 21:00 04/05/23 09:27 Nifedipine Extended Rel 30 Mg Tabcr PO 05/04/23 20:59 30 mg BID CAMILO Administration Oxycodone HCl 5 mg 04/05/23 05:48 04/05/23 10:16 Oxycodone Hcl Ir 5 Mg Tab (Immediate Release) PO 04/19/23 05:47 5 mg Q4H PRN Administration Pain Spironolactone 25 mg 04/04/23 15:30 04/05/23 09:27 Spironolactone 25 Mg Tab PO 05/04/23 15:29 25 mg QAM CAMILO Administration Tramadol HCl 25 - 50 mg 04/04/23 21:06 04/05/23 04:35 Tramadol Hcl 50 Mg Tablet PO 05/04/23 21:05 50 mg Q4H PRN Administration Pain
--- NOTE | 2023-04-05 16:28 | Magnetic Resonance Report ---
MRI OF THE BRAIN COMBO CLINICAL HISTORY: Headache. COMPARISON STUDY: CT of the brain dated 04/04/2023. TECHNIQUE: MRI of the brain was performed utilizing various T1 and T2-weighted sequences in the axial , sagittal, and coronal planes. Contrast-enhanced sequences were acquired following the administratio n of 6.5 cc of Gadavist. FINDINGS: Brain parenchyma: There are numerous foci of T2 signal abnormality scattered throughout the white mat ter. A 10 mm lesion in the right parietal white matter seen on coronal image #16 shows peripheral pos tcontrast enhancement. No additional lesions show abnormal enhancement. There is no hemorrhage or mas s effect. There is no restricted diffusion to suggest acute ischemia. No enhancing mass lesion is charleen ntified on the postcontrast images. Sierra-white matter differentiation is preserved. No extra-axial fl uid collection is seen. The cerebellar tonsils are normal in configuration. Ventricles, sulci, and cisterns: Normal in configuration. Pituitary and sella: Unremarkable. Intracranial vasculature: Normal flow voids are maintained at the skull base. Orbits: The bony orbits are grossly intact. Orbital contents are normal in appearance. Sinuses and mastoids: There is trace mucosal thickening in the left maxillary antrum. The remaining p aranasal sinuses are clear. There are small mastoid effusions. Calvarium: Unremarkable. Cervical cord: Partially visualized cervical spinal cord is normal in morphology and signal intensity . IMPRESSION: 1. There is no hemorrhage, mass effect, or evidence of acute ischemia. 2. There are foci of T2 signal abnormality seen throughout the subcortical and periventricular white matter, with a 10 mm lesion in the right parietal lobe white matter showing postcontrast enhancement. The imaging appearance is nonspecific, but favors a demyelinating process such as multiple sclerosis with active demyelination. RN ADVICE infection is considered much less likely but could potentially appear similar. Clinical correlation will be essential. ACT 112: Negative or not required by law. Electronically signed by: Sammy Sow M.D. 04/05/2023 4:26 PM
[2023-04-05] MEDS: ONDANSETRON INJ 2 MG/ML 2 ML VIAL IV PRN ×2 (17:36→23:13)
--- NOTE | 2023-04-05 18:10 | Hospitalist Progress Note ---
Date of Service April 05, 2023 Assessment & Plan (1) Hypertensive emergency: (2) Migraine: Plan Patient is a 62 yr female with H/O HTN, HLD, prediabetes and migraine who presents to ED 2/2 Headache x 6 days. Hypertensive Emergency --Head CTA as below --Renal.Artery Duplex:No evidence for renal artery stenosis. --Work-up for secondary hypertension pending --Normal TSH --ECHO: EF 60 to 65%. Mild concentric LVH. Grade 1 diastolic dysfunction. Trace mitral regurgitation. Trace tricuspid regurgitation. Doppler findings do not suggest pulmonary hypertension --cardene gtt discontinued -- Continue lisinopril 40 mg daily -- Increase nifedipine 30 mg twice daily --Started on hydrochlorothiazide 25 mg daily and Coreg 12.5 mg twice daily --Also started on Aldactone 25 mg daily Needs sleep study as outpatient Needs outpatient stress test BP better Status Migrainosus --Head CTA:No acute intracranial findings. White matter hypodensities suggestive of small vessel disease. No intracranial aneurysm. No central vessel occlusion. Vascular opacification suboptimal but no significant abnormality identified. Moderate atherosclerotic plaque within the cavernous carotids without stenosis. --Received reglan, benadryl and Solumedrol, sumatriptan given x 1 --BP control -- Counseled on importance of sleep, avoiding triggers --Continue Tylenol --Started on magnesium, vitamin B2 --Add Topamax 50 mg nightly -- Clinically improving Suspected Demyelinating disease --MRI Brain:There is no hemorrhage, mass effect, or evidence of acute ischemia. There are foci of T2 signal abnormality seen throughout the subcortical and periventricular white matter, with a 10 mm lesion in the right parietal lobe white matter showing postcontrast enhancement. The imaging appearance is nonspecific, but favors a demyelinating process such as multiple sclerosis with active demyelination. CONVEYANCER infection is considered much less likely but could potentially appear similar. Clinical correlation will be essential. -- We will discuss with neurology for further recommendations Peripheral artery disease --Head CTA:No acute intracranial findings. White matter hypodensities suggestive of small vessel disease. No intracranial aneurysm. No central vessel occlusion. Vascular opacification suboptimal but no significant abnormality identified. Moderate atherosclerotic plaque within the cavernous carotids without stenosis. -- Started on Lipitor, aspirin -- Advised lifestyle changes H/O polypectomy Advised to follow-up with any bleeding issues while started on aspirin HLD not on any medications Lipid Panel on 02/03 was Total 308, LDL, 192 and HDL 87 Started on Lipitor 20mg HS Prediabetes HbA1c 5.8 on 02/03 Recommend diet and lifestyle modifications at discharge DVT Px: SCDs for now Encourage to ambulate Code Status FULL CODE Admission and Anticipated Discharge Date Admission Date: April 02, 2023 Subjective Patient is seen and examined at bedside Still has a headache despite improved BP. No other complaints Denies any chest pain, dyspnea, dizziness, nausea Review of Systems Review of Systems: All systems reviewed & are unremarkable except as noted in Subjective Physical Exam Physical Exam: Physical Exam: Vitals signs as noted above General Appearance:Moderately built and nourished, no apparent distress Head: normocephalic, Atraumatic Eyes: normal inspection, EOMI Neck: supple, Trachea midline Respiratory/Chest: Normal breath sounds, CTA, No accessory muscle use Cardiovascular: S1, S2, No murmur Abdomen/GI:Soft, Non tender, Bowel sounds present Extremities/Musculoskeletal:normal inspection, no edema Neurologic/Psych:AAOX3, grossly no focal neurological deficits Skin: normal color, warm Results & Data Results & Data Vital Signs (Past 12 Hours) Vital Signs Temp Pulse Pulse Resp BP Pulse Ox O2 Del Method 04/05/23 17:31 118/78 04/05/23 16:22 36.7 C 72 19 136/81 96 Room Air 04/05/23 15:28 69 04/05/23 11:11 37.0 C 62 17 99/67 L 95 Room Air 04/05/23 07:53 70 04/05/23 07:50 36.6 C 64 18 102/65 96 Room Air Laboratory Results Short CBC 04/05/23 Range/Units 04:24 WBC 5.22 (4.8-10.8) K/ul Hgb 13.3 (12.0-16.0) g/dl Hct 40.5 (37.0-47.0) % Plt Count 282 (130-400) K/uL BMP 04/05/23 04:24 Sodium 138 Potassium 4.0 Chloride 107 Carbon Dioxide 25 BUN 16 Creatinine 0.60 Glucose 96 Calcium 9.6
[2023-04-05] MEDS: ATORVASTATIN 20 MG TAB PO SCH (20:13)
[2023-04-05] MEDS: TOPIRAMATE 50 MG TAB PO SCH (20:13)
[2023-04-06] MEDS: carvediloL 12.5 MG TAB PO SCH ×2 (08:15→17:04)
[2023-04-06] MEDS: SPIRONOLACTONE 25 MG TAB PO SCH (08:48)
[2023-04-06] MEDS: MAGNESIUM OXIDE 400 MG TAB PO SCH (08:48)
[2023-04-06] MEDS: hydroCHLOROthiazide 25 MG TAB PO SCH (08:48)
[2023-04-06] MEDS: lisinopril 40 MG TAB PO SCH (08:48)
[2023-04-06] MEDS: NIFEdipine EXTENDED REL 30 MG TABCR PO SCH (08:48)
[2023-04-06] MEDS: ASPIRIN 81 MG ECTAB PO SCH (08:48)
--- NOTE | 2023-04-06 13:00 | Cardiology Progress Note ---
Date of Service April 06, 2023 Assessment & Plan (1) Hypertensive emergency: (2) Coronary atherosclerosis: (3) Aortic atherosclerosis: (4) Hypertension goal BP (blood pressure) < 130/80: (5) Dyslipidemia, goal LDL below 70: Plan 65-year-old female presenting with headaches with associated vomiting, hypertensive emergency. Blood pressure 250/132 on presentation. Nonpharmacologic treatment of hypertension discussed including dietary salt restriction, avoidance of NSAIDs, regular aerobic exercise, etc Pharmacological treatment of hypertension discussed in detail with patient and RECOMMENDATIONS: - Discontinue and avoid NSAIDs. - continue coreg 12.5mg bid - continue hydrochlorothiazide 25 mg/day - continue spironolactone 25 mg/day - Continue lisinopril 40 mg/day - Hold nifedipine 30 mg twice per day for now. - If she becomes hypertensive, can increase coreg to 25mg bid - Outpatient evaluation for obstructive sleep apnea - Outpatient evaluation for myocardial ischemia after blood pressure is appropriately controlled. - Agree with the addition of aspirin 81 mg/day - Recommend moderate intensity statin therapy - Patient to remain an ex-smoker - Continue telemetry, hospitalization. I provided 55 min of care to the patient and discussed management of hypertensive emergency. Admission and Anticipated Discharge Date Admission Date: April 02, 2023 Subjective Still has headache BP was low this AM Review of Systems Review of Systems: Complete review of systems is otherwise as stated above, negative, noncontributory Physical Exam 2 Physical Exam: General: A&Ox3. NAD. HENT: Normocephalic. Atraumatic. Eyes: PER. Conjunctiva pink, sclera clear. Neck: Carotid bruits. No JVD. No HJR. Heart: RRR, 90 bpm. No murmur. No rub. No gallop. Lungs: Clear to auscultation. Abdomen: +BS. Soft. Nontender. No masses or organomegaly. Extremities: No radial femoral delay. No clubbing, cyanosis, or edema. Limited neurological examination is without focal deficits. Pulses: radial=2/4, posterior tibial=2/4. Results & Data Vital Signs (Past 12 Hours) Vital Signs Temp Pulse Pulse Resp BP BP Pulse Ox 04/06/23 11:25 36.3 C L 68 18 97/62 L 91 04/06/23 08:00 57 L 04/06/23 07:55 36.4 C L 65 18 97/62 L 94 04/06/23 02:16 36.5 C 58 L 18 89/47 L 92 O2 Del Method 04/06/23 11:25 Room Air 04/06/23 08:00 04/06/23 07:55 Room Air 04/06/23 02:16 Room Air Results BMP Results: Sodium 138 mmol/L (136-145) 04/05/23 Potassium 4.0 mmol/L (3.5-5.1) 04/05/23 Chloride 107 mmol/L (98-107) 04/05/23 Carbon Dioxide 25 mmol/L (21-32) 04/05/23 Anion Gap 6 (3-11) 04/05/23 BUN 16 mg/dl (6-23) 04/05/23 Creatinine 0.60 mg/dl (0.6-1.2) 04/05/23 Glucose 96 mg/dl (70-99(Fasting)) 04/05/23 Results Complete Blood Count Results: RBC 4.43 M/uL (4.20-5.40) 04/05/23 WBC 5.22 K/ul (4.8-10.8) 04/05/23 Hgb 13.3 g/dl (12.0-16.0) 04/05/23 Hct 40.5 % (37.0-47.0) 04/05/23 Plt Count 282 K/uL (130-400) 04/05/23 (2) Coronary atherosclerosis Coronary Disease-Associated Artery/Lesion type: [place] artery [place] vs. transplanted heart: morongo heart Associated angina: without angina Qualified Code(s): I25.10 - Atherosclerotic heart disease of [place] coronary artery without angina pectoris
[2023-04-06] MEDS ORDERED: SODIUM CHLORIDE 0.9% 1,000 ML IV ONE (13:55)
[2023-04-06] MEDS ORDERED: GADOBUTROL 7.5ML VIAL IV ONE (15:25)
--- NOTE | 2023-04-06 15:56 | Magnetic Resonance Report ---
MRI OF THE CERVICAL SPINE WITH AND WITHOUT CONTRAST CLINICAL HISTORY: Possible multiple sclerosis. Dizziness. Migraines. COMPARISON: Cervical spine CT April 04, 2023. TECHNIQUE: Utilizing a 1.5 Aleksandra magnet and dedicated coil, multiplanar, multiecho imaging of the ce rvical spine was performed before and after intravenous administration of 6.5 of Gadavist. FINDINGS: There is mild reversal the cervical lordosis. Vertebral body heights are maintained. No suspicious ma rrow replacement is present. A T1 and T2 hyperintense lesion within C6 vertebral body represents a he mangioma. Cervical cord signal and caliber are normal. There is no intracanalicular mass or fluid cri t. No abnormal cord enhancement is present. Paravertebral soft tissues are unremarkable. C2-C3: The central canal and neural foramen are patent. C3-C4: The central canal and neural foramen are patent. C4-C5: There is minimal disc space narrowing and slight disc bulge. The central canal and neural for amen are patent. C5-C6: There is moderate disc space narrowing. Posterior disc osteophyte complex effaces the ventral thecal sac and contacts the cord. There is no cord signal abnormality. There is mild central canal s tenosis. Moderate left and mild to moderate right neural foraminal stenosis is present due to uncover tebral hypertrophy. C6-C7: There is moderate disc space narrowing. Posterior disc osteophyte complex effaces the ventral thecal sac. There is mild central canal stenosis. Moderate left and mild to moderate right neural fo raminal stenosis due to uncovertebral hypertrophy is present. C7-T1: The central canal and neural foramen are patent. IMPRESSION: 1. Normal cervical cord signal and caliber. No abnormal cord enhancement. 2. Mild central canal stenosis at C5-C6 and C6-C7 due to posterior disc osteophyte complexes. 3. Moderate multilevel neural foraminal stenosis, as detailed above. ACT 112: Negative or not required by law. Electronically signed by: Andres Vázquez M.D. 04/06/2023 3:54 PM
--- NOTE | 2023-04-06 16:08 | Magnetic Resonance Report ---
MRI OF THE THORACIC SPINE WITH AND WITHOUT CONTRAST CLINICAL HISTORY: Possible multiple sclerosis. COMPARISON: Thoracic spine CT April 04, 2023. TECHNIQUE: Utilizing a 1.5 Aleksandra magnet and dedicated coil, multiplanar, multiecho imaging of the th oracic spine was performed before and after the intravenous administration of 6.5 cc. FINDINGS: This study is mildly compromised by motion artifact. Vertebral body heights are maintained. A few T1 and T2 hyperintense lesions within the thoracic spine represent hemangiomas. There is no suspicious marrow replacement. There is no thoracic spine fractur e. Thoracic cord signal and caliber are normal. There is no abnormal thoracic cord enhancement. There is no intracanalicular mass or fluid collection. Vertebral soft tissues are unremarkable. No disc he rniations are identified. The central canal and neural foramen within the thoracic spine are patent. IMPRESSION: Unremarkable MRI of the thoracic spine. Normal thoracic cord signal and caliber. No abnor mal cord enhancement. ACT 112: Negative or not required by law. Electronically signed by: Andres Vázquez M.D. 04/06/2023 4:05 PM
--- NOTE | 2023-04-06 17:18 | Hospitalist Progress Note ---
Date of Service April 06, 2023 Assessment & Plan (1) Hypertensive emergency: (2) Migraine: Plan Patient is a 62 yr female with H/O HTN, HLD, prediabetes and migraine who presents to ED 2/2 Headache x 6 days. Hypertensive Emergency --Head CTA as below --Renal.Artery Duplex:No evidence for renal artery stenosis. --Work-up for secondary hypertension pending --Normal TSH --ECHO: EF 60 to 65%. Mild concentric LVH. Grade 1 diastolic dysfunction. Trace mitral regurgitation. Trace tricuspid regurgitation. Doppler findings do not suggest pulmonary hypertension --cardene gtt discontinued -- Continue lisinopril 40 mg daily --Started on hydrochlorothiazide 25 mg daily and Coreg 12.5 mg twice daily --Also started on Aldactone 25 mg daily Needs sleep study as outpatient Needs outpatient stress test -- Hold nifedipine given dizziness Adjust medications as needed Status Migrainosus --Head CTA:No acute intracranial findings. White matter hypodensities suggestive of small vessel disease. No intracranial aneurysm. No central vessel occlusion. Vascular opacification suboptimal but no significant abnormality identified. Moderate atherosclerotic plaque within the cavernous carotids without stenosis. --Received reglan, benadryl and Solumedrol, sumatriptan given x 1 --BP control -- Counseled on importance of sleep, avoiding triggers --Continue Tylenol --Started on magnesium, vitamin B2 --Add Topamax 50 mg nightly -- Clinically improved Suspected Demyelinating disease --MRI Brain:There is no hemorrhage, mass effect, or evidence of acute ischemia. There are foci of T2 signal abnormality seen throughout the subcortical and periventricular white matter, with a 10 mm lesion in the right parietal lobe white matter showing postcontrast enhancement. The imaging appearance is nonspe cific, but favors a demyelinating process such as multiple sclerosis with active demyelination. RESEARCH/PROGRAM DIRECTOR infection is considered much less likely but could potentially appear similar. Clinical correlation will be essential. -- Discussed with neurology on 04/06/2023: Advised to obtain cervical, thoracic MRI and lumbar puncture for oligoclonal bands --Thoracic, cervical MRI pending --Plan for lumbar puncture likely tomorrow -- Needs follow-up with neurology upon discharge Peripheral artery disease --Head CTA:No acute intracranial findings. White matter hypodensities suggestive of small vessel disease. No intracranial aneurysm. No central vessel occlusion. Vascular opacification suboptimal but no significant abnormality identified. Moderate atherosclerotic plaque within the cavernous carotids without stenosis. -- Started on Lipitor, aspirin -- Advised lifestyle changes H/O polypectomy Advised to follow-up with any bleeding issues while started on aspirin HLD not on any medications Lipid Panel on 02/03 was Total 308, LDL, 192 and HDL 87 Started on Lipitor 20mg HS Prediabetes HbA1c 5.8 on 02/03 Recommend diet and lifestyle modifications at discharge DVT Px: SCDs for now Encourage to ambulate Code Status FULL CODE Admission and Anticipated Discharge Date Admission Date: April 02, 2023 Subjective Patient is seen and examined at bedside Subjectively feels better today Headache well controlled Discussed with neurology regarding MRI findings today Patient states having minimal dizziness Also discussed with cardiology today Denies any chest pain, dyspnea, dizziness, nausea Review of Systems Review of Systems: All systems reviewed & are unremarkable except as noted in Subjective Physical Exam Physical Exam: Physical Exam: Vitals signs as noted above General Appearance:Moderately built and nourished, no apparent distress Head: normocephalic, Atraumatic Eyes: normal inspection, EOMI Neck: supple, Trachea midline Respiratory/Chest: Normal breath sounds, CTA, No accessory muscle use Cardiovascular: S1, S2, No murmur Abdomen/GI:Soft, Non tender, Bowel sounds present Extremities/Musculoskeletal:normal inspection, no edema Neurologic/Psych:AAOX3, grossly no focal neurological deficits Skin: normal color, warm Results & Data Results & Data Vital Signs (Past 12 Hours) Vital Signs Temp Pulse Pulse Resp BP BP Pulse Ox 04/06/23 17:00 88 156/95 H 04/06/23 16:12 36.8 C 84 18 128/89 94 04/06/23 15:35 79 04/06/23 11:25 36.3 C L 68 18 97/62 L 91 04/06/23 08:00 57 L 04/06/23 07:55 36.4 C L 65 18 97/62 L 94 O2 Del Method 04/06/23 17:00 04/06/23 16:12 Room Air 04/06/23 15:35 04/06/23 11:25 Room Air 04/06/23 08:00 04/06/23 07:55 Room Air
[2023-04-06] MEDS: TOPIRAMATE 50 MG TAB PO SCH (20:40)
[2023-04-06] MEDS: ATORVASTATIN 20 MG TAB PO SCH (20:40)
[2023-04-06] MEDS: oxyCODONE HCL IR 5 MG TAB (IMMEDIATE RELEASE) PO PRN (21:43)
[2023-04-07] MEDS: oxyCODONE HCL IR 5 MG TAB (IMMEDIATE RELEASE) PO PRN (06:25)
--- NOTE | 2023-04-07 08:35 | Cardiology Progress Note ---
Date of Service April 07, 2023 Assessment & Plan (1) Hypertensive emergency: (2) Coronary atherosclerosis: (3) Aortic atherosclerosis: (4) Hypertension goal BP (blood pressure) < 130/80: (5) Dyslipidemia, goal LDL below 70: Plan 65-year-old female presenting with headaches with associated vomiting, hypertensive emergency. Blood pressure 250/132 on presentation. Nonpharmacologic treatment of hypertension discussed including dietary salt restriction, avoidance of NSAIDs, regular aerobic exercise, etc Pharmacological treatment of hypertension discussed in detail with patient and RECOMMENDATIONS: - Discontinue and avoid NSAIDs. - continue coreg 12.5mg bid - continue hydrochlorothiazide 25 mg/day - continue spironolactone 25 mg/day - Continue lisinopril 40 mg/day - Hold nifedipine 30 mg twice per day for now. - If she becomes hypertensive, can increase coreg to 25mg bid - Outpatient evaluation for obstructive sleep apnea - Outpatient evaluation for myocardial ischemia after blood pressure is appropriately controlled. - Agree with the addition of aspirin 81 mg/day - Recommend moderate intensity statin therapy - Patient to remain an ex-smoker - Continue telemetry, hospitalization. I provided 55 min of care to the patient and discussed management of hypertensive emergency. Admission and Anticipated Discharge Date Admission Date: April 02, 2023 Subjective 65-year-old female presenting with headaches with associated vomiting, hypertensive emergency. Blood pressure 250/132 on presentation. BP improved with titration of antihypertensives. 04/04: Initially treated with IV labetalol and hydralazine with improvement. Blood pressure remains uncontrolled despite the current antihypertensive regimen which consists of lisinopril 40 mg/day, nifedipine 30 mg twice per day, and metoprolol tartrate 50 mg twice per day. 04/05: BP improved Ongoing migraine-- patient noted drinking 7-10 cups of coffee per day Secondary HTN workup in progress-- Renal artery duplex without evidence of renal artery stenosis, Urine catecholamines/metanephrines pending Physical Exam Physical Exam: General: A&Ox3. NAD. HENT: Normocephalic. Atraumatic. Eyes: PER. Conjunctiva pink, sclera clear. Neck: Carotid bruits. No JVD. No HJR. Heart: RRR, 90 bpm. No murmur. No rub. No gallop. Lungs: Clear to auscultation. Abdomen: +BS. Soft. Nontender. No masses or organomegaly. Extremities: No radial femoral delay. No clubbing, cyanosis, or edema. Limited neurological examination is without focal deficits. Pulses: radial=2/4, posterior tibial=2/4. Results & Data Vital Signs (Past 12 Hours) Vital Signs Temp Pulse Pulse Resp BP BP Pulse Ox 04/07/23 08:05 36.4 C L 66 18 116/82 96 04/07/23 02:49 36.6 C 61 18 94/60 L 94 04/07/23 01:52 60 04/06/23 22:02 36.6 C 59 L 18 94/60 L 93 O2 Del Method 04/07/23 08:05 Room Air 04/07/23 02:49 Room Air 04/07/23 01:52 04/06/23 22:02 Room Air (2) Coronary atherosclerosis Coronary Disease-Associated Artery/Lesion type: [place] artery [place] vs. transplanted heart: [place] heart Associated angina: without angina Qualified Code(s): I25.10 - Atherosclerotic heart disease of [place] coronary artery without angina pectoris
[2023-04-07] MEDS ORDERED: MoRPHine SULFATE 2 MG/ML CARP IV ONE (08:44)
[2023-04-07] MEDS: SPIRONOLACTONE 25 MG TAB PO SCH (08:44)
[2023-04-07] MEDS: carvediloL 12.5 MG TAB PO SCH ×2 (08:45→17:57)
[2023-04-07] MEDS: hydroCHLOROthiazide 25 MG TAB PO SCH (08:46)
[2023-04-07] MEDS: MAGNESIUM OXIDE 400 MG TAB PO SCH (08:46)
[2023-04-07] MEDS: lisinopril 40 MG TAB PO SCH (08:46)
[2023-04-07] MEDS: ASPIRIN 81 MG ECTAB PO SCH (08:46)
--- NOTE | 2023-04-07 10:34 | Cardiology Progress Note ---
Date of Service April 07, 2023 Assessment & Plan (1) Hypertensive emergency: Plan: -Blood pressures improved, with relative low blood pressure observed yesterday, systolic blood pressures in the 90s overnight last night, improved to 116/82 this morning. -Continue lisinopril 40 mg daily, carvedilol 12.5 mg twice daily, HCTZ 25 mg daily, spironolactone 25 mg daily. -Nifedipine 30 mg twice daily on hold. (2) Dyslipidemia, goal LDL below 70: Plan: -Continue aspirin, atorvastatin. (3) Migraine: Plan: -Continue Topamax. -If lumbar puncture considered, can hold aspirin. -MRI of cervical spine suggests multilevel neuroforaminal stenosis, cervicalgia certainly a consideration. Admission and Anticipated Discharge Date Admission Date: April 02, 2023 Subjective Patient seen in cardiology follow-up. Blood pressure improved most recent measurement 116/82. Still has a 2/10 intensity headache. Physical Exam Constitutional: WD/WN, vitals as above Respiratory: normal respiratory effort, lungs clear to auscultation Cardiovascular: RRR, no murmur, no edema Gastrointestinal (Abdomen): normal bowel sounds, soft, nontender, no hepatosplenomegaly Neurologic: PERRL, EOMI, accommodation nl, no face palsy, no dysarthria Results & Data Vital Signs (Past 12 Hours) Vital Signs Temp Pulse Pulse Resp BP BP Pulse Ox 04/07/23 08:05 36.4 C L 66 18 116/82 96 04/07/23 08:00 65 04/07/23 02:49 36.6 C 61 18 94/60 L 94 04/07/23 01:52 60 O2 Del Method 04/07/23 08:05 Room Air 04/07/23 08:00 04/07/23 02:49 Room Air 04/07/23 01:52 Laboratory Results Echocardiogram performed 04/04/2023 revealed LVEF of 60-65% with mild concentric left ventricular hypertrophy, trace mitral regurgitation, trace tricuspid regurgitation EKG performed 04/04/2023 revealed normal sinus rhythm at 70 bpm, incomplete right bundle branch block.
[2023-04-07 14:17] LABS: Appearance CSF Clear; CSF Count Tube # 3; CSF Xanthrochromic No xanthochromia; Color CSF Colorless; White Blood Cell CSF Manual 0 (0-5)
[2023-04-07 14:18] LABS: Red Blood Cell CSF Manual 1 (0-)
[2023-04-07 15:10] LABS: Cryptococcus neoformans/ga PCR Not Detected (NotDetected); Cytomegalovirus PCR Not Detected (NotDetected); Enterovirus PCR Not Detected (NotDetected); Escherichia coli K1 PCR Not Detected (NotDetected); Haemophilius influenzae PCR Not Detected (NotDetected); Herpes Simplex Virus 1 PCR Not Detected (NotDetected); Herpes Simplex Virus 2 PCR Not Detected (NotDetected); Human Herpes Virus 6 PCR Not Detected (NotDetected); Human Parechovirus PCR Not Detected (NotDetected); Listeria monocytogenes PCR Not Detected (NotDetected); Neisseria meningitidis PCR Not Detected (NotDetected); Streptococcus agalactiae PCR Not Detected (NotDetected); Streptococcus pneumoniae PCR Not Detected (NotDetected); Varicella Zoster Virus PCR Not Detected (NotDetected)
--- NOTE | 2023-04-07 16:11 | Fluoroscopy Report ---
LUMBAR PUNCTURE UNDER FLUOROSCOPY CLINICAL HISTORY: Headache with brain lesions on MRI; suspect MS PROCEDURE: Procedure and risks were explained. Informed consent was obtained. A final timeout was com pleted. The patient was placed prone on the fluoroscopic examination table. The lower lumbar region w as prepped and draped in sterile fashion. 1% lidocaine was utilized for skin anesthesia. Utilizing fluoroscopic guidance, a 22-gauge spinal needle was advanced into the intrathecal space at the L2-3 level. 2 permanent spot images were obtained. Approximately 8 mL of clear CSF fluid was spencer antonietta and sent to lab for analysis. The needle was removed and Band-Aid applied. The patient tolerated the procedure well. Vital signs will be monitored postprocedure. Total fluoroscopy time 0.13 minutes. DAP is 2.26 mcGy/m2. IMPRESSION: Lumbar puncture as above. Performed, dictated, and signed by Rodriguez Doherty PA-C; to be co-signed by Dr. Sammy Sow. Electronically signed by: Sammy Sow M.D. 04/07/2023 5:00 PM
--- NOTE | 2023-04-07 16:40 | Neurology Progress Note ---
Date of Service April 07, 2023 Assessment & Plan (1) Demyelinating disease of central nervous system: Possible MS vs other demylinating etiology radiological picture is highly suggestive Plan Check for Lyme titers , RPR, TSH. Vit D levels , ESR Follow oligoclonal bands of the CSF , IGG index, BECKIE antibodies Solumedrol 1 gram for 5 days. Will need to follow up with Neuroimmunology as outpatient Subjective Telehealth Information I performed this visit using a real-time telehealth connection between my location and the patients location ([facility]). After connecting through interactive tele-video, patient was identified by name and date of and/or wristband check.Patient (or authorized healthcare sales utility representative) was informed that this was a telemedicine visit and it was being conducted confidentially over secure lines. My office door was closed and no one else was present in the room with me.Patient (or authorized healthcare sales utility representative) provided consent to proceed with the visit, expressed an understanding of privacy and security of the telemedicine visit, and gave permission to have a hospital sales utility representative in the room in order to assist with the visit and to conduct portions of the visit, as needed. I informed the patient (or authorized healthcare sales utility representative) that I reviewed their record and presented the opportunity for them to ask any questions regarding the visit today. The patient agreed to participate. The patient remaisn with a headache, she has a2/10 intensity headache at the time of my evaluation , she still denies any focal neurological deficits . She has presented with persistent headache with photophobia and phonophobia with MRI showing an enhancing lesion of the right parietal lobe Review of Systems Constitutional: Patient denies weight loss, fever, chills, and night sweats Eyes: Patient denies change in vision, tearing, pain, and redness ENT: Patient denies pain, bleeding, rhinorrhea, and dysphagia Cardiovascular: Patient denies chest pain, palpitation, dyspnea at rest, and dyspnea with exertion Respiratory: Patient denies shortness of breath, cough, wheezing, and productive cough GI: Patient denies reflux, pain, constipation, and diarrhea Skin: Patient denies rash, dryness, and itching Allergies/Immune System: Patient denies rhinorrhea, seasonal allergies, reaction to current MEDS, and joint swelling Endocrine: Patient denies weight loss, weight gain, temperature intolerance, and excessive thirst Neurological: All negative unless mentioned in the HPI Physical Exam General NEUROLOGIC EXAMINATION: Mental Status:alert, oriented to time, place, person, normal recent memory, normal remote memory, normal attention span, normal concentration, normal language and normal fund of knowledge Cranial Nerves: CN 2 - no visual defect on confrontation and pupils round, equal, reactive to light CN 3, 4, 6 - extra-ocular movements intact and no nystagmus CN 5 - facial sensation intact CN 7 - no facial asymmetry CN 8 - intact hearing CN 9, 10 - palate symmetric, normal gag CN 11 - good shoulder shrug CN 12 - tongue midline MOTOR: Strength was at least antigravity throughout, Pronator drift was absent and There were no abnormal movements SENSATION: intact and symmetric to pinprick, light touch, vibration and joint position GAIT: stable, no ataxia and can perform tandem walking COORDINATION: no ataxia with finger to nose testing and heel to heath testing REFLEXES: cannot assess over telemedicine Results & Data Vital Signs (Past 12 Hours) Vital Signs Temp Pulse Pulse Resp BP BP Pulse Ox 04/07/23 15:09 36.7 C 63 17 90/57 L 94 04/07/23 11:11 36.8 C 59 L 17 95/62 L 94 04/07/23 08:05 36.4 C L 66 18 116/82 96 04/07/23 08:00 65 O2 Del Method 04/07/23 15:09 Room Air 04/07/23 11:11 Room Air 04/07/23 08:05 Room Air 04/07/23 08:00 Laboratory Results Laboratory Results - last 24 hr 04/07/23 04/07/23 10:02 13:15 Fld Lyme DNA (PCR) Pending Fluid Comment CSF Appearance Clear CSF Color Colorless Xanthrochromic No xanthochromia CSF WBC 0 CSF RBC 1 CSF Cell Count Tube # 3 CSF Chemistry Tube # 1 CSF Glucose 63 CSF LDH Pending CSF Total Protein 65.0 H CSF Albumin Pending CSF IgG Pending CSF IgG Index Pending CSF IgG Synthesis Rate Pending CSF Myelin Basic Protein Pending CSF IgG Oligoclonal Bnd Pending CSF Lyme IgG (Immblot) Pending CSF Lyme IgG Bands Det Pending CSF Lyme IgM (Immblot) Pending CSF Lyme IgM Bands Det Pending CSF C.neoform/gat PCR Not Detected CSF CMV DNA (PCR) Not Detected CSF Enterovirus (PCR) Not Detected CSF E. coli K1 (PCR) Not Detected CSF H. influenzae (PCR) Not Detected CSF HSV I (PCR) Not Detected CSF HSV II (PCR) Not Detected CSF HHV 6 (PCR) Not Detected CSF L.monocytogenes PCR Not Detected CSF N. meningitidis PCR Not Detected CSF Parechovirus (PCR) Not Detected CSF S. agalactiae (PCR) Not Detected CSF S. pneumoniae (PCR) Not Detected CSF VZV DNA (PCR) Not Detected CSF West Nile IgM Ab Pending IgG Pending Albumin (KARTIK) Pending Lyme Specimen Source Pending Cryptococcus Source Pending Cryptococcal Ag (Latex) Pending EBV Source Pending EBV DNA, Quant Pending EBV DNA (PCR) Pending Diagnostic Findings IMPRESSION: 1. There is no hemorrhage, mass effect, or evidence of acute ischemia. 2. There are foci of T2 signal abnormality seen throughout the subcortical and periventricular white matter, with a 10 mm lesion in the right parietal lobe white matter showing postcontrast enhancement. The imaging appearance is nonspecific, but favors a demyelinating process such as multiple sclerosis with active demyelination. MEDICAL OFFICE SPECIALIST infection is considered much less likely but could potentially appear similar. Clinical correlation will be essential. MRI C sine: IMPRESSION: 1. Normal cervical cord signal and caliber. No abnormal cord enhancement. 2. Mild central canal stenosis at C5-C6 and C6-C7 due to posterior disc osteophyte complexes. 3. Moderate multilevel neural foraminal stenosis, as detailed above. MRI T spine: [place], [place] [phone] Magnetic Resonance Report Patient: CLEMENTE CHAMORRO Admit Date: 04/02/23 MR#: [id number] Address1: [address] [place] [address] Acct ID:[id number] Address2: [place] [address] Date: 1960 [facility] Zip: [place] [address] Age: 62 Location: 4W Sex: F Room/Bed: [facility] Att Phy: Robert Clay MD Diagnosis: HTN EMERGENCY Misa Phy: PCP,NO Service Date: 04/06/23 Fam Phy: Interpreting Phy: Andres Navarro Phy: Sho Zuniga MD Ordering Phy: Robert Clay MD cc: ~ MRI OF THE THORACIC SPINE WITH AND WITHOUT CONTRAST CLINICAL HISTORY: Possible multiple sclerosis. COMPARISON: Thoracic spine CT April 04, 2023. TECHNIQUE: Utilizing a 1.5 Aleksandra magnet and dedicated coil, multiplanar, multiecho imaging of the thoracic spine was performed before and after the intravenous administration of 6.5 cc. FINDINGS: This study is mildly compromised by motion artifact. Vertebral body heights are maintained. A few T1 and T2 hyperintense lesions within the thoracic spine represent hemangiomas. There is no suspicious marrow replacement. There is no thoracic spine fracture. Thoracic cord signal and c aliber are normal. There is no abnormal thoracic cord enhancement. There is no intracanalicular mass or fluid collection. Vertebral soft tissues are unremarkable. No disc herniations are identified. The central canal and neural foramen within the thoracic spine are patent. IMPRESSION: Unremarkable MRI of the thoracic spine. Normal thoracic cord signal and caliber. No abnormal cord enhancement. Lumbar Puncture 04/07/23 08:21 LUMBAR PUNCTURE UNDER FLUOROSCOPY CLINICAL HISTORY: Headache with brain lesions on MRI; suspect MS PROCEDURE: Procedure and risks were explained. Informed consent was obtained. A final timeout was completed. The patient was placed prone on the fluoroscopic examination table. The lower lumbar region was prepped and draped in sterile fashion. 1% lidocaine was utilized for skin anesthesia. Utilizing fluoroscopic guidance, a 22-gauge spinal needle was advanced into the intrathecal space at the L2-3 level. 2 permanent spot images were obtained. Approximately 8 mL of clear CSF fluid was removed and sent to lab for analysis. The needle was removed and Band-Aid applied. The patient tolerated the procedure well. Vital signs will be monitored postprocedure. Total fluoroscopy time 0.13 minutes. DAP is 2.26 mcGy/m2. IMPRESSION: Lumbar puncture as above. Performed, dictated, and signed by Rodriguez Doherty PA-C; to be co-signed by Dr. Sammy Sow.
--- NOTE | 2023-04-07 16:57 | Hospitalist Progress Note ---
Date of Service April 07, 2023 Assessment & Plan (1) Hypertensive emergency: (2) Migraine: Plan Patient is a 62 yr female with H/O HTN, HLD, prediabetes and migraine who presents to ED 2/2 Headache x 6 days. Hypertensive Emergency --Head CTA as below --Renal.Artery Duplex:No evidence for renal artery stenosis. --Work-up for secondary hypertension pending --Normal TSH --ECHO: EF 60 to 65%. Mild concentric LVH. Grade 1 diastolic dysfunction. Trace mitral regurgitation. Trace tricuspid regurgitation. Doppler findings do not suggest pulmonary hypertension --cardene gtt discontinued -- Continue lisinopril 40 mg daily --Started on hydrochlorothiazide 25 mg daily and Coreg 12.5 mg twice daily --Also started on Aldactone 25 mg daily Needs sleep study as outpatient Needs outpatient stress test -- Hold nifedipine given dizziness Adjust medications as needed Monitor BP closely Status Migrainosus Vs headache due to multiple sclerosis --Head CTA:No acute intracranial findings. White matter hypodensities suggestive of small vessel disease. No intracranial aneurysm. No central vessel occlusion. Vascular opacification suboptimal but no significant abnormality identified. Moderate atherosclerotic plaque within the cavernous carotids without stenosis. --Received reglan, benadryl and Solumedrol, sumatriptan given x 1 --BP control -- Counseled on importance of sleep, avoiding triggers --Continue Tylenol --Started on magnesium, vitamin B2 --Add Topamax 50 mg nightly -- Persistent headache Suspected Demyelinating disease/multiple sclerosis flare --MRI Brain:There is no hemorrhage, mass effect, or evidence of acute ischemia. There are foci of T2 signal abnormality seen throughout the subcortical and periventricular white matter, with a 10 mm lesion in the right parietal lobe white matter showing postcontrast enhancement. The imaging appearance is nonspecific, but favors a demyelinating process such as multiple sclerosis with active demyelination. 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 Clinical correlation will be essential. -- Discussed with neurology on 04/06/2023: Advised to obtain cervical, thoracic MRI and lumbar puncture for oligoclonal bands --Thoracic MRI:Unremarkable MRI of the thoracic spine. Normal thoracic cord signal and caliber. No abnormal cord enhancement. --Cervical MRI:Normal cervical cord signal and caliber. No abnormal cord enhancement. Mild central canal stenosis at C5-C6 and C6-C7 due to posterior disc osteophyte complexes. Moderate multilevel neural foraminal stenosis, as detailed above. --S/P lumbar puncture on 04/07/2023 --F/U CSF studies -- Appreciate neurology input --Started on Solu-Medrol 1 g daily--plan to continue for 5 days preferably If clinically improves, will discontinue IV Solu-Medrol after 3 days and transition to prednisone 60 mg for 2 more days and stop -- Needs neuro immunology follow-up as outpatient Cervical canal stenosis MRI as above Consulted orthopedics Peripheral artery disease --Head CTA:No acute intracranial findings. White matter hypodensities suggestive of small vessel disease. No intracranial aneurysm. No central vessel occlusion. Vascular opacification suboptimal but no significant abnormality identified. Moderate atherosclerotic plaque within the cavernous carotids without stenosis. -- Started on Lipitor -- Advised lifestyle changes -- Aspirin held due to lumbar puncture, resume as able H/O polypectomy Advised to follow-up with any bleeding issues while started on aspirin HLD not on any medications Lipid Panel on 02/03 was Total 308, LDL, 192 and HDL 87 Started on Lipitor 20mg HS Prediabetes HbA1c 5.8 on 02/03 Recommend diet and lifestyle modifications at discharge DVT Px: SCDs for now Encourage to ambulate Code Status FULL CODE Admission and Anticipated Discharge Date Admission Date: April 02, 2023 Subjective Patient is seen and examined at bedside Patient continues to have headache, feels frustrated Plan for lumbar puncture today Discussed with neurology today Blood pressure variable Denies any chest pain, dyspnea, dizziness, nausea Review of Systems Review of Systems: All systems reviewed & are unremarkable except as noted in Subjective Physical Exam Physical Exam: Physical Exam: Vitals signs as noted above General Appearance:Moderately built and nourished, no apparent distress Head: normocephalic, Atraumatic Eyes: normal inspection, EOMI Neck: supple, Trachea midline Respiratory/Chest: Normal breath sounds, CTA, No accessory muscle use Cardiovascular: S1, S2, No murmur Abdomen/GI:Soft, Non tender, Bowel sounds present Extremities/Musculoskeletal:normal inspection, no edema Neurologic/Psych:AAOX3, grossly no focal neurological deficits Skin: normal color, warm Results & Data Results & Data Vital Signs (Past 12 Hours) Vital Signs Temp Pulse Pulse Resp BP BP Pulse Ox 04/07/23 15:09 36.7 C 63 17 90/57 L 94 11/20/23 11:11 36.8 C 59 L 17 95/62 L 94 04/07/23 08:05 36.4 C L 66 18 116/82 96 04/07/23 08:00 65 O2 Del Method 04/07/23 15:09 Room Air 04/07/23 11:11 Room Air 04/07/23 08:05 Room Air 04/07/23 08:00
[2023-04-07] MEDS: methylPREDNISolone 1,000 MG in DEXTROSE 5% 250 ML IV SCH (18:01)
[2023-04-07] MEDS: ATORVASTATIN 20 MG TAB PO SCH (20:18)
[2023-04-07] MEDS: FAMOTIDINE 20 MG TAB PO SCH (20:18)
[2023-04-07] MEDS: TOPIRAMATE 50 MG TAB PO SCH (20:18)
[2023-04-07] MEDS: hydrOXYzine HCl 10 MG TAB PO PRN (22:49)
[2023-04-08 06:26] LABS: Hemoglobin 14.6 g/dl (12.0-16.0); Mean Corpuscular Hemoglobin 30.2 pg (25.0-34.0); Mean Platelet Volume 10.6 fL (9.4-12.4); Platelet Count 356 K/uL (130-400); RDW Coefficient of Variation 12.5 % (11.5-14.5); RDW Standard Deviation 40.9 fL (36.4-46.3); Red Blood Count 4.83 M/uL (4.20-5.40); White Blood Count 6.87 K/ul (4.8-10.8)
[2023-04-08 07:19] LABS: Calcium 10.1 mg/dl (8.6-10.3); Potassium 4.7 mmol/L (3.5-5.1)
[2023-04-08 07:23] LABS: Lyme Ab IgG w/WB Rflx Negative (Negative); Lyme Ab IgM w/WB Rflx Negative (Negative)
[2023-04-08 07:25] LABS: BUN Creatinine Ratio 38.5 (10-20); Creatinine Clr Calc Pharmacy 58.9 ml/min; Est GFR (African American) 78.9 ml/min; Est GFR (Non-African American) 68.1 ml/min
[2023-04-08] MEDS: MAGNESIUM OXIDE 400 MG TAB PO SCH (09:14)
[2023-04-08] MEDS: FAMOTIDINE 20 MG TAB PO SCH ×2 (09:14→20:16)
[2023-04-08] MEDS: lisinopril 40 MG TAB PO SCH (09:14)
[2023-04-08] MEDS: hydroCHLOROthiazide 25 MG TAB PO SCH (09:14)
[2023-04-08] MEDS: SPIRONOLACTONE 25 MG TAB PO SCH (09:14)
[2023-04-08] MEDS: oxyCODONE HCL IR 5 MG TAB (IMMEDIATE RELEASE) PO PRN ×2 (09:18→20:15)
[2023-04-08] MEDS: carvediloL 12.5 MG TAB PO SCH ×2 (09:29→17:11)
[2023-04-08] MEDS: methylPREDNISolone 1,000 MG in DEXTROSE 5% 250 ML IV SCH (09:29)
--- NOTE | 2023-04-08 09:31 | Consultation ---
Date of Consultation April 08, 2023 Assessment & Plan (1) Migraine: Dr. Hamilton has reviewed cervical and thoracic MRI. She is asymptomatic from this. This is not contributing to her current symptom complex. Treatment is therefore conservative. If her migraines are still persistent, she can certain ly consider trigger point injections versus greater occipital nerve block by pain management team. Regarding her cervical spine activity as tolerated. No restrictions. Continue with conservative modalities upon discharge. We will sign off. History of Present Illness Reason for Consultation: Mild cervical stenosis Attending Physician: Kale Rogers MD History of Present Illness Is a pleasant 62-year-old female who was admitted to the hospital via the emergency room on April 05 due to migraine and hypertensive emergency. We were consulted regarding MRI findings of the cervical spine. She states she has some occasional left trapezius and upper scapular pain. She is gone to the chiropractor in the past for this. She denies any upper extremity pain, paresthesia, numbness or weakness. She feels like sometimes her balance is off. She ambulates independently. She still works at the [employer] in a very physical job. She has been followed by neurology and cardiology during her hospital stay. Currently undergoing an MS work-up Allergies Allergy/AdvReac Type Severity Reaction Status Date / Time No Known Drug Allergies Allergy . Verified 04/05/23 05:51 Home Medications Medication Instructions Recorded Confirmed Type diphenhydramine 25 1 tab PO HS PRN Pain 06/25/18 04/02/23 History mg-acetaminophen 500 mg tablet (Tylenol PM Extra Strength) aspirin 81 mg tablet,delayed 81 mg PO QAM #30 tabs 04/11/23 Rx release atorvastatin 20 mg tablet 20 mg PO HS #30 tabs 04/11/23 Rx carvedilol 6.25 mg tablet 6.25 mg PO BIDM #60 tabs 04/11/23 Rx gabapentin 100 mg capsule 100 mg PO TID #90 caps 04/11/23 Rx lisinopril 20 mg tablet 20 mg PO QAM #30 tabs 04/11/23 Rx melatonin 3 mg tablet 6 mg (2 x 3 mg) PO HS PRN sleep 04/11/23 Rx #30 tabs oxycodone 5 mg tablet 5 mg PO Q12H PRN pain #10 tabs 04/11/23 Rx spironolactone 25 mg tablet 25 mg PO QAM #30 tabs 04/11/23 Rx topiramate 50 mg tablet 50 mg PO QPM #30 tabs 04/11/23 Rx Patient History Medical History Pre-diabetes Osteoarthritis Hypertension Hypercholesterolemia Surgical History Status post colonoscopy History of hysterectomy History of colonoscopy History of foot surgery Family History Father Hypertension Stroke Mother Hypertension Social History Smoking Status: Former smoker Tobacco Type: Cigarettes Second Hand Exposure: No; Do You Dip or Chew Tobacco: No; Hx Alcohol Use: No Hx Substance Use: No Preferred Language: Colombian Communication Ability: Effective 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 Beliefs That Will Affect Care: None marital status: Current Living Situation: Spouse current occupational status: employed Feels Safe at Home: Yes Assistive Devices: None Review of Systems Review of Systems: All systems reviewed & are unremarkable except as noted in HPI & below Physical Exam Physical Exam: She is alert and oriented x3 No acute distress She has modest tenderness over the left trapezius region Range of motion does not reproduce pain of the cervical spine 5/5 bilateral finger trances, wrist exte nsors, wrist flexors, biceps, triceps, deltoid No evidence of upper motor neuron signs bilateral upper extremities No evidence of ankle clonus bilaterally Results & Data Vital Signs (Past 12 Hours) Vital Signs Temp Pulse Pulse Resp BP BP Pulse Ox 04/08/23 09:21 80 104/65 04/08/23 08:27 67 04/08/23 07:08 36.3 C L 66 17 98/63 L 94 04/08/23 02:44 36.4 C L 68 18 92/55 L 93 04/07/23 22:43 36.5 C 64 20 95/62 L 91 04/07/23 21:57 61 O2 Del Method 04/08/23 09:21 04/08/23 08:27 04/08/23 07:08 Room Air 04/08/23 02:44 Room Air 04/07/23 22:43 Room Air 04/07/23 21:57 Diagnostic Findings [place], [place] [phone] Magnetic Resonance Report Patient: CLEMENTE CHAMORRO Admit Date: 04/02/23 MR#: [id number] Address1: [address] Acct ID:[id number] Address2: [address] Date: 1960 [facility] Zip: [place] [address] Age: 62 Location: 4W Sex: F Room/Bed: [facility] Att Phy: Robert Clay MD Diagnosis: HTN EMERGENCY Misa Phy: PCP,NO Service Date: 04/06/23 Fam Phy: Interpreting Phy: Andres Vázquez MDAdmit Phy: Sho Zuniga MD Ordering Phy: Robert Clay MD cc: ~ MRI OF THE CERVICAL SPINE WITH AND WITHOUT CONTRAST CLINICAL HISTORY: Possible multiple sclerosis. Dizziness. Migraines. COMPARISON: Cervical spine CT April 04, 2023. TECHNIQUE: Utilizing a 1.5 Aleksandra magnet and dedicated coil, multiplanar, multiecho imaging of the cervical spine was performed before and after intravenous administration of 6.5 of Gadavist. FINDINGS: There is mild reversal the cervical lordosis. Vertebral body heights are maintained. No suspicious marrow replacement is present. A T1 and T2 hyperinten se lesion within C6 vertebral body represents a hemangioma. Cervical cord signal and caliber are normal. There is no intracanalicular mass or fluid crit. No abnormal cord enhancement is present. Paravertebral soft tissues are unremarkable. C2-C3: The central canal and neural foramen are patent. C3-C4: The central canal and neural foramen are patent. C4-C5: There is minimal disc space narrowing and slight disc bulge. The central canal and neural foramen are patent. C5-C6: There is moderate disc space narrowing. Posterior disc osteophyte complex effaces the ventral thecal sac and contacts the cord. There is no cord signal abnormality. There is mild central canal stenosis. Moderate left and mild to moderate right neural foraminal stenosis is present due to uncovertebral hypertrophy. C6-C7: There is moderate disc space narrowing. Posterior disc osteophyte complex effaces the ventral thecal sac. There is mild central canal stenosis. Moderate left and mild to moderate right neural foraminal stenosis due to uncovertebral hypertrophy is present. C7-T1: The central canal and neural foramen are patent. IMPRESSION: 1. Normal cervical cord signal and caliber. No abnormal cord enhancement. 2. Mild central canal stenosis at C5-C6 and C6-C7 due to posterior disc osteophyte complexes. 3. Moderate multilevel neural foraminal stenosis, as detailed above. ACT 112: Negative or not required by law. Electronically signed by: Andres Vázquez M.D. 04/06/2023 3:54 PM Dictated: 04/06/23 1544 Transcribed: 04/06/23 1544 [place], [place] [phone] Magnetic Resonance Report Patient: CLEMENTE CHAMORRO Admit Date: 04/02/23 MR#: [id number] Address1: [address] [place] [address] Acct ID:[id number] Address2: [facility] Date: 1960 [facility] Zip: [place] [address] Age: 62 Location: 4W Sex: F Room/Bed: [facility] Att Phy: Robert Clay MD Diagnosis: HTN EMERGENCY Misa Phy: PCP,NO Service Date: 04/06/23 Fam Phy: Interpreting Phy: Andres Vázquez MDAdmit Phy: Sho Zuniga MD Ordering Phy: Robert Clay MD cc: ~ MRI OF THE THORACIC SPINE WITH AND WITHOUT CONTRAST CLINICAL HISTORY: Possible multiple sclerosis. COMPARISON: Thoracic spine CT April 04, 2023. TECHNIQUE: Utilizing a 1.5 Aleksandra magnet and dedicated coil, multiplanar, mul tiecho imaging of the thoracic spine was performed before and after the intravenous administration of 6.5 cc. FINDINGS: This study is mildly compromised by motion artifact. Vertebral body heights are maintained. A few T1 and T2 hyperintense lesions within the thoracic spine represent hemangiomas. There is no suspicious marrow replacement. There is no thoracic spine fracture. Thoracic cord signal and caliber are normal. There is no abnormal thoracic cord enhancement. There is no intracanalicular mass or fluid collection. Vertebral soft tissues are unremarkable. No disc herniations are identified. The central canal and neural foramen within the thoracic spine are patent. IMPRESSION: Unremarkable MRI of the thoracic spine. Normal thoracic cord signal and caliber. No abnormal cord enhancement. ACT 112: Negative or not required by law. Electronically signed by: Andres Vázquez M.D. 04/06/2023 4:05 PM Dictated: 04/06/23 1602 Transcribed: 04/06/23 1602
--- NOTE | 2023-04-08 12:33 | Cardiology Progress Note ---
Date of Service April 08, 2023 Assessment & Plan (1) Hypertensive emergency: Plan: -Blood pressures improved, with relative low blood pressure observed yesterday, systolic blood pressures in the 90s overnight last night, improved to 116/82 this morning. -Continue lisinopril 40 mg daily, carvedilol 12.5 mg twice daily, HCTZ 25 mg daily, spironolactone 25 mg daily. -Nifedipine 30 mg twice daily discontinued. -I had considered further reduction in her BP medication doses, however, with steroid administration, anticipate increase in BP and will therefore keep BP medication the same today. (2) Dyslipidemia, goal LDL below 70: Plan: -Continue aspirin, atorvastatin. (3) Demyelinating disease of central nervous system: Plan: -Neurology input noted and appreciated. Pt to receive solumedrol, 1,000 mg daily x 5 days. Pt s/p Lumbar puncture on 04/07/23. Consider adding pharmacologic DVT prophylaxis. Admission and Anticipated Discharge Date Admission Date: April 02, 2023 Subjective Patient feeling improved . BP improved. Headache improved. IV solumedrol infusion in process. Physical Exam Constitutional: WD/WN, vitals as above Respiratory: normal respiratory effort, lungs clear to auscultation Cardiovascular: RRR, no murmur, no edema Gastrointestinal (Abdomen): normal bowel sounds, soft, nontender, no hepatosplenomegaly Neurologic: PERRL, EOMI, accommodation nl, no face palsy, no dysarthria Results & Data Vital Signs (Past 12 Hours) Vital Signs Temp Pulse Pulse Resp BP BP Pulse Ox 04/08/23 10:58 36.4 C L 73 18 122/72 95 04/08/23 09:21 80 104/65 04/08/23 08:27 67 04/08/23 07:08 36.3 C L 66 17 98/63 L 94 04/08/23 02:44 36.4 C L 68 18 92/55 L 93 O2 Del Method 04/08/23 10:58 Room Air 04/08/23 09:21 04/08/23 08:27 04/08/23 07:08 Room Air 04/08/23 02:44 Room Air Laboratory Results CBC 04/08/23 Range/Units 05:50 WBC 6.87 (4.8-10.8) K/ul RBC 4.83 (4.20-5.40) M/uL Hgb 14.6 (12.0-16.0) g/dl Hct 43.0 (37.0-47.0) % Plt Count 356 (130-400) K/uL Comprehensive Metabolic Panel 04/08/23 Range/Units 05:50 Sodium 134 L (136-145) mmol/L Potassium 4.7 (3.5-5.1) mmol/L Chloride 102 (98-107) mmol/L Carbon Dioxide 23 (21-32) mmol/L BUN 35 H (6-23) mg/dl Creatinine 0.91 (0.6-1.2) mg/dl Glucose 138 H (70-99(Fasting)) mg/dl Calcium 10.1 (8.6-10.3) mg/dl Intake and Output 04/07/23 04/08/23 04/08/23 22:59 06:59 14:59 Intake Total 766 / 1991 400 / 1992 266 / 266 Output Total 1550 / 1550 Balance -784 / 442 400 / 442 266 / 266 Intake: IV 266 / 317 266 / 266 methylPREDNISolone 1,000 mg In 266 / 266 266 / 266 Dextrose 5% 250 ml @ 266 mls/hr IV DAILY [facility] Rx#:[id number] Oral 500 / 1675 400 / 1675 Output: Urine 1550 / 1550 Other: Weight 65.1 kg Weight Measurement Method Standing Scale
--- NOTE | 2023-04-08 15:55 | Hospitalist Progress Note ---
Date of Service April 08, 2023 Assessment & Plan (1) Hypertensive emergency: (2) Migraine: Plan Patient is a 62 yr female with H/O HTN, HLD, prediabetes and migraine who presents to ED 2/2 Headache x 6 days. Hypertensive Emergency --Head CTA as below --Renal.Artery Duplex:No evidence for renal artery stenosis. --Work-up for secondary hypertension pending --Normal TSH --ECHO: EF 60 to 65%. Mild concentric LVH. Grade 1 diastolic dysfunction. Trace mitral regurgitation. Trace tricuspid regurgitation. Doppler findings do not suggest pulmonary hypertension --cardene gtt discontinued -- Continue lisinopril 40 mg daily --Also on hydrochlorothiazide 25 mg daily and Coreg 12.5 mg twice daily --Also started on Aldactone 25 mg daily Needs sleep study as outpatient Needs outpatient stress test Adjust medications as needed Monitor BP closely Status Migrainosus Vs headache due to multiple sclerosis --Head CTA:No acute intracranial findings. White matter hypodensities suggestive of small vessel disease. No intracranial aneurysm. No central vessel occlusion. Vascular opacification suboptimal but no significant abnormality identified. Moderate atherosclerotic plaque within the cavernous carotids without stenosis. --Received reglan, benadryl and Solumedrol, sumatriptan given x 1 --BP control -- Counseled on importance of sleep, avoiding triggers --Continue Tylenol --Started on magnesium, vitamin B2 --Add Topamax 50 mg nightly -- Persistent headache Suspected Demyelinating disease/multiple sclerosis flare --MRI Brain:There is no hemorrhage, mass effect, or evidence of acute ischemia. There are foci of T2 signal abnormality seen throughout the subcortical and periventricular white matter, with a 10 mm lesion in the right parietal lobe white matter showing postcontrast enhancement. The imaging appearance is nonspecific, but favors a demyelinating process such as multiple sclerosis with active demyelination. DOCUMENT COORDINATOR infection is considered much less likely but could potentially appear similar. Clinical correlation will be essential. -- Discussed with neurology on 04/06/2023: Advised to obtain cervical, thoracic MRI and lumbar puncture for oligoclonal bands --Thoracic MRI:Unremarkable MRI of the thoracic spine. Normal thoracic cord signal and caliber. No abnormal cord enhancement. --Cervical MRI:Normal cervical cord signal and caliber. No abnormal cord enhancement. Mild central canal stenosis at C5-C6 and C6-C7 due to posterior disc osteophyte complexes. Moderate multilevel neural foraminal stenosis, as detailed above. --S/P lumbar puncture on 04/07/2023 --F/U CSF studies -- Appreciate neurology input --Started on Solu-Medrol 1 g daily--plan to continue for 5 days preferably If clinically improves, will discontinue IV Solu-Medrol after 3 days and transition to prednisone 60 mg for 2 more days and stop -- Needs neuro immunology follow-up as outpatient Cervical canal stenosis MRI as above Orthopedic spine consult noted; no surgical intervention needed. Peripheral artery disease --Head CTA:No acute intracranial findings. White matter hypodensities suggestive of small vessel disease. No intracranial aneurysm. No central vessel occlusion. Vascular opacification suboptimal but no significant abnormality identified. Moderate atherosclerotic plaque within the cavernous carotids without stenosis. -- Started on Lipitor -- Advised lifestyle changes -- Aspirin held due to lumbar puncture, resume as able H/O polypectomy Advised to follow-up with any bleeding issues while started on aspirin HLD not on any medications Lipid Panel on 02/03 was Total 308, LDL, 192 and HDL 87 Started on Lipitor 20mg HS Prediabetes HbA1c 5.8 on 02/03 Recommend diet and lifestyle modifications at discharge DVT Px: Heparin Code Status FULL CODE Please note the above document was generated using voice recognition software. It may contain grammatical, syntax or spelling errors. Any formal questions or concerns about the content, text or information contained within the body of this dictation should be directly addressed to the provider for clarification Admission and Anticipated Discharge Date Admission Date: April 02, 2023 Subjective Patient seen and examined at bedside. She reports that her headache has improved compared to yesterday. Reports that she feels dizzy while standing. Review of Systems Review of Systems: All systems reviewed & are unremarkable except as noted in Subjective Physical Exam Physical Exam: Physical Exam: Vitals signs as noted above General Appearance:Moderately built and nourished, no apparent distress Head: normocephalic, Atraumatic Eyes: normal inspection, EOMI Neck: supple, Trachea midline Respiratory/Chest: Normal breath sounds, CTA, No accessory muscle use Cardiovascular: S1, S2, No murmur Abdomen/GI:Soft, Non tender, Bowel sounds present Extremities/Musculoskeletal:normal inspection, no edema Neurologic/Psych:AAOX3, grossly no focal neurological deficits Skin: normal color, warm Results & Data Results & Data Vital Signs (Past 12 Hours) Vital Signs Temp Pulse Pulse Resp BP BP Pulse Ox 04/08/23 15:06 74 04/08/23 10:58 36.4 C L 73 18 122/72 95 04/08/23 09:21 80 104/65 04/08/23 08:27 67 04/08/23 07:08 36.3 C L 66 17 98/63 L 94 O2 Del Method 04/08/23 15:06 04/08/23 10:58 Room Air 04/08/23 09:21 04/08/23 08:27 04/08/23 07:08 Room Air Laboratory Results Laboratory Results WBC 6.87 K/ul (4.8-10.8) 04/08/23 05:50 RBC 4.83 M/uL (4.20-5.40) 04/08/23 05:50 Hgb 14.6 g/dl (12.0-16.0) 04/08/23 05:50 Hct 43.0 % (37.0-47.0) 04/08/23 05:50 MCV 89.0 fL (80.0-100.0) 04/08/23 05:50 MCH 30.2 pg (25.0-34.0) 04/08/23 05:50 MCHC 34.0 g/dL (32.0-36.0) 04/08/23 05:50 RDW Std Deviation 40.9 fL (36.4-46.3) 04/08/23 05:50 RDW Coeff of Jesus 12.5 % (11.5-14.5) 04/08/23 05:50 Plt Count 356 K/uL (130-400) 04/08/23 05:50 MPV 10.6 fL (9.4-12.4) 04/08/23 05:50 Immature Gran % (Auto) 0.2 % 04/05/23 04:24 Neut % (Auto) 64.7 % 04/05/23 04:24 Lymph % (Auto) 23.4 % 04/05/23 04:24 [place] % (Auto) 10.9 % 04/05/23 04:24 Eos % (Auto) 0.6 % 04/05/23 04:24 Baso % (Auto) 0.2 % 04/05/23 04:24 Neut # (Auto) 3.38 K/uL (1.40-6.50) 04/05/23 04:24 Lymph # (Auto) 1.22 K/uL (1.20-3.40) 04/05/23 04:24 [place] # (Auto) 0.57 K/uL (0.11-0.59) 04/05/23 04:24 Eos # (Auto) 0.03 K/uL (0.00-0.50) 04/05/23 04:24 Baso # (Auto) 0.01 K/uL (0.00-0.20) 04/05/23 04:24 Immature Gran # (Auto) 0.01 K/uL (0.01-0.20) 04/05/23 04:24 PT 10.8 Seconds (9.0-12.0) 04/02/23 09:05 INR 1.0 (0.9-1.1) 04/02/23 09:05 Sodium 134 mmol/L (136-145) L 04/08/23 05:50 Potassium 4.7 mmol/L (3.5-5.1) 04/08/23 05:50 Chloride 102 mmol/L (98-107) 04/08/23 05:50 Carbon Dioxide 23 mmol/L (21-32) 04/08/23 05:50 Anion Gap 9 (3-11) 04/08/23 05:50 BUN 35 mg/dl (6-23) H 04/08/23 05:50 Creatinine 0.91 mg/dl (0.6-1.2) 04/08/23 05:50 Est Cr Clr Drug Dosing 58.9 ml/min 04/08/23 05:50 Est GFR ( Amer) 78.9 ml/min 04/08/23 05:50 Est GFR (Non-Af Amer) 68.1 ml/min 04/08/23 05:50 BUN/Creatinine Ratio 38.5 (10-20) H 04/08/23 05:50 Glucose 138 mg/dl (70-99(Fasting)) H 04/08/23 05:50 Calcium 10.1 mg/dl (8.6-10.3) 04/08/23 05:50 Magnesium 2.2 mg/dl (1.7-2.4) 04/05/23 04:24 Total Bilirubin 0.4 mg/dl (0.2-1.0) 04/03/23 05:45 Direct Bilirubin 0.0 mg/dl (0-0.2) 04/03/23 05:45 AST 12 U/L (13-39) L 04/03/23 05:45 ALT 12 U/L (7-52) 04/03/23 05:45 Alkaline Phosphatase 50 U/L (34-104) 04/03/23 05:45 Troponin I High Sens 4.5 pg/ml (0-14) 04/02/23 09:05 Total Protein 6.5 gm/dl (6.0-8.3) 04/03/23 05:45 Albumin 3.9 gm/dl (3.4-5.0) 04/03/23 05:45 Globulin 3.0 gm/dl (2.5-4.0) 04/02/23 09:05 Albumin/Globulin Ratio 1.5 (0.9-2) 04/02/23 09:05 Lipase 31 U/L (11-82) 04/02/23 09:05 25-OH Vitamin D Total 16.9 ng/ml (30-100) L 04/08/23 05:50 TSH 0.366 uIu/ml (0.300-4.500) 04/03/23 05:45 Dopamine Cancelled 04/02/23 12:46 Epinephrine Cancelled 04/02/23 12:46 Norepinephrine Cancelled 04/02/23 12:46 Total Catecholamines Cancelled 04/02/23 12:46 Plasma Metanephrine Cancelled 04/02/23 12:46 Plasma Normetanephrine Cancelled 04/02/23 12:46 Plas Total Metaneph Cancelled 04/02/23 12:46 Urine Color Yellow 04/02/23 10:28 Urine Appearance Clear (Clear) 04/02/23 10:28 Urine pH 7.5 (4.5-7.5) 04/02/23 10:28 Ur Specific [place] 1.007 (1.000-1.030) 04/02/23 10:28 Urine Protein Negative (Negative) 04/02/23 10:28 Urine Glucose (UA) Negative (Negative) 04/02/23 10:28 Urine Ketones Negative (Negative) 04/02/23 10:28 Urine Blood Negative (Negative) 04/02/23 10:28 Urine Nitrite Negative (Negative) 04/02/23 10:28 Urine Bilirubin Negative (Negative) 04/02/23 10:28 Urine Urobilinogen Negative (Negative) 04/02/23 10:28 Ur Leukocyte Esterase Negative (Negative) 04/02/23 10:28 Fld Lyme DNA (PCR) Cancelled 04/07/23 13:15 Fluid Comment 04/07/23 13:15 CSF Appearance Clear 04/07/23 13:15 CSF Color Colorless 04/07/23 13:15 Xanthrochromic No xanthochromia 04/07/23 13:15 CSF WBC 0 (0-5) 04/07/23 13:15 CSF RBC 1 (0-) 04/07/23 13:15 CSF Cell Count Tube # 3 04/07/23 13:15 CSF Chemistry Tube # 1 04/07/23 13:15 CSF Glucose 63 mg/dl (40-70) 04/07/23 13:15 CSF LDH Cancelled 04/07/23 13:15 CSF Total Protein 65.0 mg/dl (15-45) H 04/07/23 13:15 CSF Lyme IgG (Immblot) Cancelled 04/07/23 13:15 CSF Lyme IgG Bands Det Cancelled 04/07/23 13:15 CSF Lyme IgM (Immblot) Cancelled 04/07/23 13:15 CSF Lyme IgM Bands Det Cancelled 04/07/23 13:15 CSF C.neoform/gat PCR Not Detected (NotDetected) 04/07/23 13:15 CSF CMV DNA (PCR) Not Detected (NotDetected) 04/07/23 13:15 CSF Enterovirus (PCR) Not Detected (NotDetected) 04/07/23 13:15 CSF E. coli K1 (PCR) Not Detected (NotDetected) 04/07/23 13:15 CSF H. influenzae (PCR) Not Detected (NotDetected) 04/07/23 13:15 CSF HSV I (PCR) Not Detected (NotDetected) 04/07/23 13:15 CSF HSV II (PCR) Not Detected (NotDetected) 04/07/23 13:15 CSF HHV 6 (PCR) Not Detected (NotDetected) 04/07/23 13:15 CSF L.monocytogenes PCR Not Detected (NotDetected) 04/07/23 13:15 CSF N. meningitidis PCR Not Detected (NotDetected) 04/07/23 13:15 CSF Parechovirus (PCR) Not Detected (NotDetected) 04/07/23 13:15 CSF S. agalactiae (PCR) Not Detected (NotDetected) 04/07/23 13:15 CSF S. pneumoniae (PCR) Not Detected (NotDetected) 04/07/23 13:15 CSF VZV DNA (PCR) Not Detected (NotDetected) 04/07/23 13:15 Anaplasma Smear See Comment 04/02/23 12:46 Babesia Smear See Comment 04/02/23 12:46 Babesia microti DNA PCR Not Detected (Not Detected) 04/02/23 12:46 Lyme Specimen Source Cancelled 04/07/23 13:15 Lyme Disease IgG Ab Negative (Negative) 04/08/23 05:50 Lyme Disease IgM Ab Negative (Negative) 04/08/23 05:50 Lyme DNA Comment Cancelled 04/07/23 13:15 Impressions Chest X-Ray 04/02/23 08:56 XR chest 1V portable HISTORY: 62 years-old Female Chest pain, nonspecific acute chest pain COMPARISON: 06/27/2018 TECHNIQUE: AP view the chest FINDINGS: Right axilla is normal. No pneumothorax, pleural effusion, airspace consolidation or pulmonary edema. Bones appear grossly intact. IMPRESSION: No acute process. ACT 112: Negative or not required by law. The above report was generated using voice recognition software. It may contain grammatical, syntax or spelling errors. Electronically signed by: Newton Guaman M.D. 04/02/2023 9:58 AM Head CTA 04/02/23 09:03 CT angio head wo/w CLINICAL HISTORY: FOREMAN x 6 days, HTN COMPARISON STUDY: No previous studies for comparison. TECHNIQUE: Axial images of the head were obtained before and after intravenous administration of 89 cc of Optiray 320 IV. Arterial phase imaging was performed. Sagittal and coronal reconstructions were viewed. Automated exposure control was utilized for the study. A dose lowering technique was utilized adhering to the principles of ALARA. FINDINGS: No acute intracranial hemorrhage, midline shift or mass effect is present. Ventricular system is normal. Basal cisterns are patent. There are no extra axial collections. White matter hypodensities suggest small vessel disease. There are no findings to suggest acute dural sinus thrombosis or acute territorial infarct. No significant calvarial abnormalities are present. A small amount of fluid within the inferior bilateral mastoid air cells is present. No intracranial mass or pathologic enhancement is present. Major intracranial vessels are grossly patent. No intracranial aneurysm is identified. There is no dissection within the intracranial vessels. Vascular opacification is somewhat suboptimal. There are bilateral posterior communicating arteries. There is moderate atherosclerotic plaque within the cavernous carotids without stenosis. IMPRESSION: 1. No acute intracranial findings. 2. White matter hypodensities suggestive of small vessel disease. 3. No intracranial aneurysm. No central vessel occlusion. Vascular opacification suboptimal but no significant abnormality identified. ACT 112: Negative or not required by law. Electronically signed by: Andres Vázquez M.D. 04/02/2023 11:47 AM Renal Artery Duplex 04/03/23 00:00 US duplex renal artery CLINICAL HISTORY: eval for renal artery stenosis. Hypertension. COMPARISON STUDY: Abdomen and pelvis CT 04/02/2023. FINDINGS: The right kidney measures 10.4 cm and the left kidney measures 10.3 cm. No hydronephrosis. The peak systolic velocity within the mid right renal artery was 117 cm/s in the proximal left renal artery was 106 cm/s. Resistive indices of the bilateral renal arcuate arteries are less than 0.7. The bilateral renal veins are patent. IMPRESSION: No evidence for renal artery stenosis. ACT 112: Negative or not required by law. Electronically signed by: Mau Merrill M.D. 04/03/2023 10:[address] 04/04/23 21:04 CT SCAN OF THE CERVICAL SPINE CLINICAL HISTORY: Atraumatic neck pain. COMPARISON STUDY: No priors. TECHNIQUE: CT scan of the cervical spine is performed from the skull base to the upper thoracic spine. Images are reviewed in the axial, sagittal, and coronal planes. IV contrast was not administered for this examination. A dose lowering technique was utilized adhering to the principles of ALARA. CT DOSE: 2135.14 mGy.cm FINDINGS: Skeletal structures: The skeletal structures are osteopenic. There is no evidence of fracture or subluxation involving the cervical spine. Vertebral body height and alignment are maintained. There is straightening of the cervical lordosis. Anterior osteophytes are seen throughout. The odontoid process and lateral masses are intact. The atlantoaxial articulation is preserved. The spinous processes appear intact. Intervertebral discs: There is moderate disc space narrowing at C5-C6 and C6-C7. The remaining disc spaces appear maintained Central canal: Posterior disc osteophyte complexes at C5-C6 and C6-C7 may contribute to acquired compromise of the central canal. Soft tissues: The prevertebral and paraspinous soft tissues are within normal limits. There is atherosclerotic calcification of the carotid bulbs. Calvarium: The visualized calvarium at the skull base appears intact. Brain parenchyma: Partially visualized brain parenchyma at the skull base is within normal limits. Sinuses and mastoids: The visualized paranasal sinuses are clear. There are small mastoid effusions. Cerumen is noted in the left external auditory canal. Lung apices: Clear as visualized. IMPRESSION: No acute bony abnormality is seen involving the cervical spine. ACT 112: Negative or not required by law. Electronically signed by: Sammy Sow M.D. 04/04/2023 9:[address] 04/04/23 21:04 CT SCAN OF THE BRAIN WITHOUT IV CONTRAST CLINICAL HISTORY: Headache. COMPARISON STUDY: CT of the brain dated 04/02/2023. TECHNIQUE: Unenhanced axial CT scan of the brain is performed from the vertex to the skull base. A dose lowering technique was utilized adhering to the principles of ALARA. FINDINGS: Brain parenchyma: There is age-related involutional change noting [id number] subcortical and periventricular microangiopathic disease. There is no hemorrhage, mass effect, or evidence of acute territorial ischemia by CT criteria. [place]-white matter differentiation is preserved. No extra-axial fluid collection is seen. Ventricles, sulci, cisterns: Prominent secondary to involutional change. Intracranial vasculature: There is atherosclerotic calcification of the cavernous carotid arteries. Calvarium: Unremarkable. Sinuses and mastoids: The visualized paranasal sinuses are clear. There is trace mastoid effusions. Cerumen is noted in the left external auditory canal. Orbits: The bony orbits are grossly intact. IMPRESSION: There is no hemorrhage, mass effect, or evidence of acute territorial ischemia by CT criteria. ACT 112: Negative or not required by law. Electronically signed by: Sammy Sow M.D. 04/04/2023 9:[address] 04/04/23 21:04 CT SCAN OF THE THORACIC SPINE WITHOUT CONTRAST CLINICAL HISTORY: Atraumatic thoracic back pain. COMPARISON STUDY: No priors. TECHNIQUE: CT scan of the thoracic spine is performed from the lower cervical spine to the upper lumbar spine. Images are reviewed in the axial, sagittal, and coronal planes. IV contrast was not administered for this examination. A dose lowering technique was utilized adhering to the principles of ALARA. FINDINGS: The skeletal structures are osteopenic. There is no evidence of fracture or malalignment involving the thoracic spine. Vertebral body height and alignment are maintained throughout the thoracic spine. Tiny anterior osteophytes are seen throughout. The transverse and spinous processes appear intact. No lytic or blastic lesion is seen. The disc spaces appear maintained. There is no CT evidence of large disc herniation or central canal stenosis. The paraspinous soft tissues are normal as imaged. The imaged lung parenchyma appears clear noting dependent atelectasis. The visualized posterior ribs appear intact. IMPRESSION: No acute bony abnormality is seen involving the thoracic spine. ACT 112: Negative or not required by law. Electronically signed by: Sammy Sow M.D. 04/04/2023 10:14 PM Brain MRI 04/05/23 12:12 MRI OF THE BRAIN COMBO CLINICAL HISTORY: Headache. COMPARISON STUDY: CT of the brain dated 04/04/2023. TECHNIQUE: MRI of the brain was performed utilizing various T1 and T2-weighted sequences in the axial, sagittal, and coronal planes. Contrast-enhanced sequences were acquired following the administration of 6.5 cc of Gadavist. FINDINGS: Brain parenchyma: There are numerous foci of T2 signal abnormality scattered throughout the white matter. A 10 mm lesion in the right parietal white matter seen on coronal image #16 shows peripheral postcontrast enhancement. No additional lesions show abnormal enhancement. There is no hemorrhage or mass effect. There is no restricted diffusion to suggest acute ischemia. No enhancing mass lesion is identified on the postcontrast images. [place]-white matter differentiation is preserved. No extra-axial fluid collection is seen. The cerebellar tonsils are normal in configuration. Ventricles, sulci, and cisterns: Normal in configuration. Pituitary and sella: Unremarkable. Intracranial vasculature: Normal flow voids are maintained at the skull base. Orbits: The bony orbits are grossly intact. Orbital contents are normal in appearance. Sinuses and mastoids: There is trace mucosal thickening in the left maxillary antrum. The remaining paranasal sinuses are clear. There are small mastoid effusions. Calvarium: Unremarkable. Cervical cord: Partially visualized cervical spinal cord is normal in morphology and signal intensity. IMPRESSION: 1. There is no hemorrhage, mass effect, or evidence of acute ischemia. 2. There are foci of T2 signal abnormality seen throughout the subcortical and periventricular white matter, with a 10 mm lesion in the right parietal lobe white matter showing postcontrast enhancement. The imaging appearance is nonspecific, but favors a demyelinating process such as multiple sclerosis with active demyelination. DOCUMENT COORDINATOR infection is considered much less likely but could potentially appear similar. Clinical correlation will be essential. ACT 112: Negative or not required by law. Electronically signed by: Sammy Sow M.D. 04/05/2023 4:26 PM Cervical Spine MRI 04/06/23 13:53 MRI OF THE CERVICAL SPINE WITH AND WITHOUT CONTRAST CLINICAL HISTORY: Possible multiple sclerosis. Dizziness. Migraines. COMPARISON: Cervical spine CT April 04, 2023. TECHNIQUE: Utilizing a 1.5 Aleksandra magnet and dedicated coil, multiplanar, multiecho imaging of the cervical spine was performed before and after intravenous administration of 6.5 of Gadavist. FINDINGS: There is mild reversal the cervical lordosis. Vertebral body heights are maintained. No suspicious marrow replacement is present. A T1 and T2 hyperintense lesion within C6 vertebral body represents a hemangioma. Cervical cord signal and caliber are normal. There is no intracanalicular mass or fluid crit. No abnormal cord enhancement is present. Paravertebral soft tissues are unremarkable. C2-C3: The central canal and neural foramen are patent. C3-C4: The central canal and neural foramen are patent. C4-C5: There is minimal disc space narrowing and slight disc bulge. The central canal and neural foramen are patent. C5-C6: There is moderate disc space narrowing. Posterior disc osteophyte complex effaces the ventral thecal sac and contacts the cord. There is no cord signal abnormality. There is mild central canal stenosis. Moderate left and mild to moderate right neural foraminal stenosis is present due to uncovertebral hypertrophy. C6-C7: There is moderate disc space narrowing. Posterior disc osteophyte comp yusef effaces the ventral thecal sac. There is mild central canal stenosis. Moderate left and mild to moderate right neural foraminal stenosis due to uncovertebral hypertrophy is present. C7-T1: The central canal and neural foramen are patent. IMPRESSION: 1. Normal cervical cord signal and caliber. No abnormal cord enhancement. 2. Mild central canal stenosis at C5-C6 and C6-C7 due to posterior disc osteophyte complexes. 3. Moderate multilevel neural foraminal stenosis, as detailed above. ACT 112: Negative or not required by law. Electronically signed by: Andres Vázquez M.D. 04/06/2023 3:54 PM Thoracic Spine MRI 04/06/23 13:53 MRI OF THE THORACIC SPINE WITH AND WITHOUT CONTRAST CLINICAL HISTORY: Possible multiple sclerosis. COMPARISON: Thoracic spine CT April 04, 2023. TECHNIQUE: Utilizing a 1.5 Aleksandra magnet and dedicated coil, multiplanar, multiecho imaging of the thoracic spine was performed before and after the intravenous administration of 6.5 cc. FINDINGS: This study is mildly compromised by motion artifact. Vertebral body heights are maintained. A few T1 and T2 hyperintense lesions within the thoracic spine represent hemangiomas. There is no suspicious marrow replacement. There is no thoracic spine fracture. Thoracic cord signal and caliber are normal. There is no abnormal thoracic cord enhancement. There is no intracanalicular mass or fluid collection. Vertebral soft tissues are unremarkable. No disc herniations are identified. The central canal and neural foramen within the thoracic spine are patent. IMPRESSION: Unremarkable MRI of the thoracic spine. Normal thoracic cord signal and caliber. No abnormal cord enhancement. ACT 112: Negative or not required by law. Electronically signed by: Andres Vázquez M.D. 04/06/2023 4:05 PM Lumbar Puncture 04/07/23 08:21 LUMBAR PUNCTURE UNDER FLUOROSCOPY CLINICAL HISTORY: Headache with brain lesions on MRI; suspect MS PROCEDURE: Procedure and risks were explained. Informed consent was obtained. A final timeout was completed. The patient was placed prone on the fluoroscopic examination table. The lower lumbar region was prepped and draped in sterile fashion. 1% lidocaine was utilized for skin anesthesia. Utilizing fluoroscopic guidance, a 22-gauge spinal needle was advanced into the intrathecal space at the L2-3 level. 2 permanent spot images were obtained. Approximately 8 mL of clear CSF fluid was removed and sent to lab for analysis. The needle was removed and Band-Aid applied. The patient tolerated the procedure well. Vital signs will be monitored postprocedure. Total fluoroscopy time 0.13 minutes. DAP is 2.26 mcGy/m2. IMPRESSION: Lumbar puncture as above. Performed, dictated, and signed by Rodriguez Doherty PA-C; to be co-signed by Dr. Sammy Sow. Electronically signed by: Sammy Sow M.D. 04/07/2023 5:00 PM
[2023-04-08] MEDS: HEPARIN SOD 5,000 UNIT/0.5 ML VIAL SQ SCH (20:16)
[2023-04-08] MEDS: TOPIRAMATE 50 MG TAB PO SCH (20:16)
[2023-04-08] MEDS: ATORVASTATIN 20 MG TAB PO SCH (20:16)
[2023-04-09 06:34] LABS: Hematocrit (blood only) 39.4 % (37.0-47.0); Hemoglobin 13.5 g/dl (12.0-16.0); Mean Corpuscular Hemoglobin 29.9 pg (25.0-34.0); Mean Corpuscular Hgb Conc 34.3 g/dL (32.0-36.0); Mean Corpuscular Volume 87.2 fL (80.0-100.0); Mean Platelet Volume 11.1 fL (9.4-12.4); Platelet Count 335 K/uL (130-400); RDW Coefficient of Variation 12.6 % (11.5-14.5); RDW Standard Deviation 39.9 fL (36.4-46.3); Red Blood Count 4.52 M/uL (4.20-5.40)
[2023-04-09 06:48] LABS: Calcium 9.8 mg/dl (8.6-10.3); Creatinine Clr Calc Pharmacy 71.5 ml/min; Est GFR (African American) 99.7 ml/min
[2023-04-09 07:12] LABS: Basophils # (auto) 0.02 K/uL (0.00-0.20); Basophils % (auto) 0.1 %; Immature Granulocytes # (auto) 0.04 K/uL (0.01-0.20); Immature Granulocytes % (auto) 0.3 %; Lymphocytes # (auto) 0.77 K/uL (1.20-3.40); Lymphocytes % (auto) 5.6 %; Monocytes # (auto) 0.47 K/uL (0.11-0.59); Monocytes % (auto) 3.4 %; Neutrophils % (auto) 90.6 %
[2023-04-09] MEDS: HEPARIN SOD 5,000 UNIT/0.5 ML VIAL SQ SCH ×2 (09:45→21:52)
[2023-04-09] MEDS: methylPREDNISolone 1,000 MG in DEXTROSE 5% 250 ML IV SCH (10:11)
[2023-04-09] MEDS: SPIRONOLACTONE 25 MG TAB PO SCH (10:12)
[2023-04-09] MEDS: FAMOTIDINE 20 MG TAB PO SCH ×2 (10:12→21:02)
[2023-04-09] MEDS: lisinopril 20 MG TAB PO SCH (10:13)
[2023-04-09] MEDS: MAGNESIUM OXIDE 400 MG TAB PO SCH (10:13)
[2023-04-09] MEDS: carvediloL 12.5 MG TAB PO SCH ×2 (10:15→16:35)
--- NOTE | 2023-04-09 12:43 | Communication Note ---
Date of Service: April 09, 2023 Vital signs reviewed. Overall blood pressure much improved, occasional systolic blood pressure readings however in the 90s. Agree with plan to reduce lisinopril from 40 mg to 20 mg. Continue remaining medications. Dr White will be rounding on 04/10/2023 and 04/11/2023. Call with questions or concerns.
--- NOTE | 2023-04-09 15:11 | Hospitalist Progress Note ---
Date of Service April 09, 2023 Assessment & Plan (1) Hypertensive emergency: (2) Migraine: Plan Patient is a 62 yr female with H/O HTN, HLD, prediabetes and migraine who presents to ED 2/2 Headache x 6 days. Hypertensive Emergency --Head CTA as below --Renal.Artery Duplex:No evidence for renal artery stenosis. --Work-up for secondary hypertension pending --Normal TSH --ECHO: EF 60 to 65%. Mild concentric LVH. Grade 1 diastolic dysfunction. Trace mitral regurgitation. Trace tricuspid regurgitation. Doppler findings do not suggest pulmonary hypertension --cardene gtt discontinued Patient was placed on lisinopril 40 mg once a day, hydrochlorothiazide 25 mg, Coreg 12.5 mg twice daily and Aldactone. Blood pressure trended down to systolic of 90s. Lisinopril decreased to 20 mg once a day. Hydrochlorothiazide on hold. Continue on Aldactone and Coreg. Will try to add blood pressure medication. Status Migrainosus Vs headache due to multiple sclerosis --Head CTA:No acute intracranial findings. White matter hypodensities suggestive of small vessel disease. No intracranial aneurysm. No central vessel occlusion. Vascular opacification suboptimal but no significant abnormality identified. Moderate atherosclerotic plaque within the cavernous carotids without stenosis. --Received reglan, benadryl and Solumedrol, sumatriptan given x 1 --BP control -- Counseled on importance of sleep, avoiding triggers --Continue Tylenol --Started on magnesium, vitamin B2 --Add Topamax 50 mg nightly -- Persistent headache Suspected Demyelinating disease/multiple sclerosis flare --MRI Brain:There is no hemorrhage, mass effect, or evidence of acute ischemia. There are foci of T2 signal abnormality seen throughout the subcortical and periventricular white matter, with a 10 mm lesion in the right parietal lobe white matter showing postcontrast enhancement. The imaging appearance is nonspecific, but favors a demyelinating process such as multiple sclerosis with active demyelination. [employer] infection is considered much less likely but could potentially appear similar. Clinical correlation will be essential. -- Discussed with neurology on 04/06/2023: Advised to obtain cervical, thoracic MRI and lumbar puncture for oligoclonal bands --Thoracic MRI:Unremarkable MRI of the thoracic spine. Normal thoracic cord signal and caliber. No abnormal cord enhancement. --Cervical MRI:Normal cervical cord signal and caliber. No abnormal cord enhancement. Mild central canal stenosis at C5-C6 and C6-C7 due to posterior disc osteophyte complexes. Moderate multilevel neural foraminal stenosis, as detailed above. --S/P lumbar puncture on 04/07/2023 --F/U CSF studies -- Appreciate neurology input --Started on Solu-Medrol 1 g daily--plan to continue for 5 days preferably Patient reports clinical improvement today. Will switch over to p.o. prednisone for 2 more days. -- Needs neuro immunology follow-up as outpatient Cervical canal stenosis MRI as above Orthopedic spine consult noted; no surgical intervention needed. Peripheral artery disease --Head CTA:No acute intracranial findings. White matter hypodensities suggestive of small vessel disease. No intracranial aneurysm. No central vessel occlusion. Vascular opacification suboptimal but no significant abnormality identified. Moderate atherosclerotic plaque within the cavernous carotids without stenosis. -- Started on Lipitor -- Advised lifestyle changes -- Aspirin held due to lumbar puncture, resume as able H/O polypectomy Advised to follow-up with any bleeding issues while started on aspirin HLD not on any medications Lipid Panel on 02/03 was Total 308, LDL, 192 and HDL 87 Started on Lipitor 20mg HS Prediabetes HbA1c 5.8 on 02/03 Recommend diet and lifestyle modifications at discharge DVT Px: Heparin Code Status FULL CODE Disposition; patient continues to remain hospitalized due to intractable headache and possible MS flare requiring IV steroids. Please note the above document was generated using voice recognition software. It may contain grammatical, syntax or spelling errors. Any formal questions or concerns about the content, text or information contained within the body of this dictation should be directly addressed to the provider for clarification Admission and Anticipated Discharge Date Admission Date: April 02, 2023 Subjective Patient seen and examined at bedside. She reports that her headache has slightly improved today. She reports dizziness on standing up and low appetite. Blood pressure reviewed; systolic SBP of 90s overnight. Review of Systems Review of Systems: All systems reviewed & are unremarkable except as noted in Subjective Physical Exam Physical Exam: Physical Exam: Vitals signs as noted above General Appearance:Moderately built and nourished, no apparent distress Head: normocephalic, Atraumatic Eyes: normal inspection, EOMI Neck: supple, Trachea midline Respiratory/Chest: Normal breath sounds, CTA, No accessory muscle use Cardiovascular: S1, S2, No murmur Abdomen/GI:Soft, Non tender, Bowel sounds present Extremities/Musculoskeletal:normal inspection, no edema Neurologic/Psych:AAOX3, grossly no focal neurological deficits Skin: normal color, warm Results & Data Results & Data Vital Signs (Past 12 Hours) Vital Signs Temp Pulse Pulse Resp BP BP Pulse Ox 04/09/23 11:44 36.6 C 66 18 132/86 95 04/09/23 08:53 77 124/80 04/09/23 08:05 36.9 C 65 20 99/63 L 95 04/09/23 07:23 69 O2 Del Method 04/09/23 11:44 Room Air 04/09/23 08:53 04/09/23 08:05 Room Air 04/09/23 07:23 Laboratory Results Laboratory Results WBC 13.80 K/ul (4.8-10.8) H 04/09/23 05:32 RBC 4.52 M/uL (4.20-5.40) 04/09/23 05:32 Hgb 13.5 g/dl (12.0-16.0) 04/09/23 05:32 Hct 39.4 % (37.0-47.0) 04/09/23 05:32 MCV 87.2 fL (80.0-100.0) 04/09/23 05:32 MCH 29.9 pg (25.0-34.0) 04/09/23 05:32 MCHC 34.3 g/dL (32.0-36.0) 04/09/23 05:32 RDW Std Deviation 39.9 fL (36.4-46.3) 04/09/23 05:32 RDW Coeff of Jesus 12.6 % (11.5-14.5) 04/09/23 05:32 Plt Count 335 K/uL (130-400) 04/09/23 05:32 MPV 11.1 fL (9.4-12.4) 04/09/23 05:32 Immature Gran % (Auto) 0.3 % 04/09/23 05:32 Neut % (Auto) 90.6 % 04/09/23 05:32 Lymph % (Auto) 5.6 % 04/09/23 05:32 Mora % (Auto) 3.4 % 04/09/23 05:32 Eos % (Auto) 0.0 % 04/09/23 05:32 Baso % (Auto) 0.1 % 04/09/23 05:32 Neut # (Auto) 12.50 K/uL (1.40-6.50) H 04/09/23 05:32 Lymph # (Auto) 0.77 K/uL (1.20-3.40) L 04/09/23 05:32 Mora # (Auto) 0.47 K/uL (0.11-0.59) 04/09/23 05:32 Eos # (Auto) 0.00 K/uL (0.00-0.50) 04/09/23 05:32 Baso # (Auto) 0.02 K/uL (0.00-0.20) 04/09/23 05:32 Immature Gran # (Auto) 0.04 K/uL (0.01-0.20) 04/09/23 05:32 PT 10.8 Seconds (9.0-12.0) 04/02/23 09:05 INR 1.0 (0.9-1.1) 04/02/23 09:05 Sodium 134 mmol/L (136-145) L 04/09/23 05:32 Potassium 4.0 mmol/L (3.5-5.1) 04/09/23 05:32 Chloride 102 mmol/L (98-107) 04/09/23 05:32 Carbon Dioxide 22 mmol/L (21-32) 04/09/23 05:32 Anion Gap 10 (3-11) 04/09/23 05:32 BUN 30 mg/dl (6-23) H 04/09/23 05:32 Creatinine 0.75 mg/dl (0.6-1.2) 04/09/23 05:32 Est Cr Clr Drug Dosing 71.5 ml/min 04/09/23 05:32 Est GFR ( Amer) 99.7 ml/min 04/09/23 05:32 Est GFR (Non-Af Amer) 86.0 ml/min 04/09/23 05:32 BUN/Creatinine Ratio 40.0 (10-20) H 04/09/23 05:32 Glucose 121 mg/dl (70-99(Fasting)) H 04/09/23 05:32 Calcium 9.8 mg/dl (8.6-10.3) 04/09/23 05:32 Magnesium 2.2 mg/dl (1.7-2.4) 04/05/23 04:24 Total Bilirubin 0.4 mg/dl (0.2-1.0) 04/03/23 05:45 Direct Bilirubin 0.0 mg/dl (0-0.2) 04/03/23 05:45 AST 12 U/L (13-39) L 04/03/23 05:45 ALT 12 U/L (7-52) 04/03/23 05:45 Alkaline Phosphatase 50 U/L (34-104) 04/03/23 05:45 Troponin I High Sens 4.5 pg/ml (0-14) 04/02/23 09:05 Total Protein 6.5 gm/dl (6.0-8.3) 04/03/23 05:45 Albumin 3.9 gm/dl (3.4-5.0) 04/03/23 05:45 Globulin 3.0 gm/dl (2.5-4.0) 04/02/23 09:05 Albumin/Globulin Ratio 1.5 (0.9-2) 04/02/23 09:05 Lipase 31 U/L (11-82) 04/02/23 09:05 25-OH Vitamin D Total 16.9 ng/ml (30-100) L 04/08/23 05:50 TSH 0.366 uIu/ml (0.300-4.500) 04/03/23 05:45 Dopamine Cancelled 04/02/23 12:46 Epinephrine Cancelled 04/02/23 12:46 Norepinephrine Cancelled 04/02/23 12:46 Total Catecholamines Cancelled 04/02/23 12:46 Plasma Metanephrine Cancelled 04/02/23 12:46 Plasma Normetanephrine Cancelled 04/02/23 12:46 Plas Total Metaneph Cancelled 04/02/23 12:46 Urine Color Yellow 04/02/23 10:28 Urine Appearance Clear (Clear) 04/02/23 10:28 Urine pH 7.5 (4.5-7.5) 04/02/23 10:28 Ur Specific [place] 1.007 (1.000-1.030) 04/02/23 10:28 Urine Protein Negative (Negative) 04/02/23 10:28 Urine Glucose (UA) Negative (Negative) 04/02/23 10:28 Urine Ketones Negative (Negative) 04/02/23 10:28 Urine Blood Negative (Negative) 04/02/23 10:28 Urine Nitrite Negative (Negative) 04/02/23 10:28 Urine Bilirubin Negative (Negative) 04/02/23 10:28 Urine Urobilinogen Negative (Negative) 04/02/23 10:28 Ur Leukocyte Esterase Negative (Negative) 04/02/23 10:28 Fld Lyme DNA (PCR) Cancelled 04/07/23 13:15 Fluid Comment 04/07/23 13:15 CSF Appearance Clear 04/07/23 13:15 CSF Color Colorless 04/07/23 13:15 Xanthrochromic No xanthochromia 04/07/23 13:15 CSF WBC 0 (0-5) 04/07/23 13:15 CSF RBC 1 (0-) 04/07/23 13:15 CSF Cell Count Tube # 3 04/07/23 13:15 CSF Chemistry Tube # 1 04/07/23 13:15 CSF Glucose 63 mg/dl (40-70) 04/07/23 13:15 CSF LDH Cancelled 04/07/23 13:15 CSF Total Protein 65.0 mg/dl (15-45) H 04/07/23 13:15 CSF Lyme IgG (Immblot) Cancelled 04/07/23 13:15 CSF Lyme IgG Bands Det Cancelled 04/07/23 13:15 CSF Lyme IgM (Immblot) Cancelled 04/07/23 13:15 CSF Lyme IgM Bands Det Cancelled 04/07/23 13:15 CSF C.neoform/gat PCR Not Detected (NotDetected) 04/07/23 13:15 CSF CMV DNA (PCR) Not Detected (NotDetected) 04/07/23 13:15 CSF Enterovirus (PCR) Not Detected (NotDetected) 04/07/23 13:15 CSF E. coli K1 (PCR) Not Detected (NotDetected) 04/07/23 13:15 CSF H. influenzae (PCR) Not Detected (NotDetected) 04/07/23 13:15 CSF HSV I (PCR) Not Detected (NotDetected) 04/07/23 13:15 CSF HSV II (PCR) Not Detected (NotDetected) 04/07/23 13:15 CSF HHV 6 (PCR) Not Detected (NotDetected) 04/07/23 13:15 CSF L.monocytogenes PCR Not Detected (NotDetected) 04/07/23 13:15 CSF N. meningitidis PCR Not Detected (NotDetected) 04/07/23 13:15 CSF Parechovirus (PCR) Not Detected (NotDetected) 04/07/23 13:15 CSF S. agalactiae (PCR) Not Detected (NotDetected) 04/07/23 13:15 CSF S. pneumoniae (PCR) Not Detected (NotDetected) 04/07/23 13:15 CSF VZV DNA (PCR) Not Detected (NotDetected) 04/07/23 13:15 Anaplasma Smear See Comment 04/02/23 12:46 Babesia Smear See Comment 04/02/23 12:46 Babesia microti DNA PCR Not Detected (Not Detected) 04/02/23 12:46 Lyme Specimen Source Cancelled 04/07/23 13:15 Lyme Disease IgG Ab Negative (Negative) 04/08/23 05:50 Lyme Disease IgM Ab Negative (Negative) 04/08/23 05:50 Lyme DNA Comment Cancelled 04/07/23 13:15 Impressions Chest X-Ray 04/02/23 08:56 XR chest 1V portable HISTORY: 62 years-old Female Chest pain, nonspecific acute chest pain COMPARISON: 06/27/2018 TECHNIQUE: AP view the chest FINDINGS: Right axilla is normal. No pneumothorax, pleural effusion, airspace consolidation or pulmonary edema. Bones appear grossly intact. IMPRESSION: No acute process. ACT 112: Negative or not required by law. The above report was generated using voice recognition software. It may contain grammatical, syntax or spelling errors. Electronically signed by: Newton Guaman M.D. 04/02/2023 9:58 AM Head CTA 04/02/23 09:03 CT angio head wo/w CLINICAL HISTORY: FOREMAN x 6 days, HTN COMPARISON STUDY: No previous studies for comparison. TECHNIQUE: Axial images of the head were obtained before and after intravenous administration of 89 cc of Optiray 320 IV. Arterial phase imaging was performed. Sagittal and coronal reconstructions were viewed. Automated exposure control was utilized for the study. A dose lowering technique was utilized adhering to the principles of ALARA. FINDINGS: No acute intracranial hemorrhage, midline shift or mass effect is present. Ventricular system is normal. Basal cisterns are patent. There are no extra axial collections. White matter hypodensities suggest small vessel disea se. There are no findings to suggest acute dural sinus thrombosis or acute territorial infarct. No significant calvarial abnormalities are present. A small amount of fluid within the inferior bilateral mastoid air cells is present. No intracranial mass or pathologic enhancement is present. Major intracranial vessels are grossly patent. No intracranial aneurysm is identified. There is no dissection within the intracranial vessels. Vascular opacification is somewhat suboptimal. There are bilateral posterior communicating arteries. There is moderate atherosclerotic plaque within the cavernous carotids without stenosis. IMPRESSION: 1. No acute intracranial findings. 2. White matter hypodensities suggestive of small vessel disease. 3. No intracranial aneurysm. No central vessel occlusion. Vascular opacification suboptimal but no significant abnormality identified. ACT 112: Negative or not required by law. Electronically signed by: Andres Vázquez M.D. 04/02/2023 11:47 AM Renal Artery Duplex 04/03/23 00:00 US duplex renal artery CLINICAL HISTORY: eval for renal artery stenosis. Hypertension. COMPARISON STUDY: Abdomen and pelvis CT 04/02/2023. FINDINGS: The right kidney measures 10.4 cm and the left kidney measures 10.3 cm. No hydronephrosis. The peak systolic velocity within the mid right renal artery was 117 cm/s in the proximal left renal artery was 106 cm/s. Resistive indices of the bilateral renal arcuate arteries are less than 0.7. The bilateral renal veins are patent. IMPRESSION: No evidence for renal artery stenosis. ACT 112: Negative or not required by law. Electronically signed by: Mau Merrill M.D. 04/03/2023 10:[address] 04/04/23 21:04 CT SCAN OF THE CERVICAL SPINE CLINICAL HISTORY: Atraumatic neck pain. COMPARISON STUDY: No priors. TECHNIQUE: CT scan of the cervical spine is performed from the skull base to the upper thoracic spine. Images are reviewed in the axial, sagittal, and coronal planes. IV contrast was not administered for this examination. A dose lowering technique was utilized adhering to the principles of ALARA. CT DOSE: 2135.14 mGy.cm FINDINGS: Skeletal structures: The skeletal structures are osteopenic. There is no evidence of fracture or subluxation involving the cervical spine. Vertebral body height and alignment are maintained. There is straightening of the cervical lordosis. Anterior osteophytes are seen throughout. The odontoid process and lateral masses are intact. The atlantoaxial articulation is preserved. The spinous processes appear intact. Intervertebral discs: There is moderate disc space narrowing at C5-C6 and C6-C7. The remaining disc spaces appear maintained Central canal: Posterior disc osteophyte complexes at C5-C6 and C6-C7 may contribute to acquired compromise of the central canal. Soft tissues: The prevertebral and paraspinous soft tissues are within normal l imits. There is atherosclerotic calcification of the carotid bulbs. Calvarium: The visualized calvarium at the skull base appears intact. Brain parenchyma: Partially visualized brain parenchyma at the skull base is within normal limits. Sinuses and mastoids: The visualized paranasal sinuses are clear. There are small mastoid effusions. Cerumen is noted in the left external auditory canal. Lung apices: Clear as visualized. IMPRESSION: No acute bony abnormality is seen involving the cervical spine. ACT 112: Negative or not required by law. Electronically signed by: Sammy Sow M.D. 04/04/2023 9:[address] 04/04/23 21:04 CT SCAN OF THE BRAIN WITHOUT IV CONTRAST CLINICAL HISTORY: Headache. COMPARISON STUDY: CT of the brain dated 04/02/2023. TECHNIQUE: Unenhanced axial CT scan of the brain is performed from the vertex to the skull base. A dose lowering technique was utilized adhering to the principles of ALARA. FINDINGS: Brain parenchyma: There is age-related involutional change noting [id number] subcortical and periventricular microangiopathic disease. There is no hemorrhage, mass effect, or evidence of acute territorial ischemia by CT criteria. Sierra-white matter differentiation is preserved. No extra-axial fluid collection is seen. Ventricles, sulci, cisterns: Prominent secondary to involutional change. Intracranial vasculature: There is atherosclerotic calcification of the cavernous carotid arteries. Calvarium: Unremarkable. Sinuses and mastoids: The visualized paranasal sinuses are clear. There is trace mastoid effusions. Cerumen is noted in the left external auditory canal. Orbits: The bony orbits are grossly intact. IMPRESSION: There is no hemorrhage, mass effect, or evidence of acute territorial ischemia by CT criteria. ACT 112: Negative or not required by law. Electronically signed by: Sammy Sow M.D. 04/04/2023 9:[address] 04/04/23 21:04 CT SCAN OF THE THORACIC SPINE WITHOUT CONTRAST CLINICAL HISTORY: Atraumatic thoracic back pain. COMPARISON STUDY: No priors. TECHNIQUE: CT scan of the thoracic spine is performed from the lower cervical spine to the upper lumbar spine. Images are reviewed in the axial, sagittal, and coronal planes. IV contrast was not administered for this examination. A dose lowering technique was utilized adhering to the principles of ALARA. FINDINGS: The skeletal structures are osteopenic. There is no evidence of fracture or malalignment involving the thoracic spine. Vertebral body height and alignment are maintained throughout the thoracic spine. Tiny anterior osteophytes are seen throughout. The transverse and spinous processes appear intact. No lytic or blastic lesion is seen. The disc spaces appear maintained. There is no CT evidence of large disc herniation or central canal stenosis. The paraspinous soft tissues are normal as imaged. The imaged lung parenchyma appears clear noting dependent atelectasis. The visualized posterior ribs appear intact. IMPRESSION: No acute bony abnormality is seen involving the thoracic spine. ACT 112: Negative or not required by law. Electronically signed by: Sammy Sow M.D. 04/04/2023 10:14 PM Brain MRI 04/05/23 12:12 MRI OF THE BRAIN COMBO CLINICAL HISTORY: Headache. COMPARISON STUDY: CT of the brain dated 04/04/2023. TECHNIQUE: MRI of the brain was performed utilizing various T1 and T2-weighted sequences in the axial, sagittal, and coronal planes. Contrast-enhanced sequences were acquired following the administration of 6.5 cc of Gadavist. FINDINGS: Brain parenchyma: There are numerous foci of T2 signal abnormality scattered throughout the white matter. A 10 mm lesion in the right parietal white matter seen on coronal image #16 shows peripheral postcontrast enhancement. No additional lesions show abnormal enhancement. There is no hemorrhage or mass effect. There is no restricted diffusion to suggest acute ischemia. No enhancing mass lesion is identified on the postcontrast images. Sierra-white matter differentiation is preserved. No extra-axial fluid collection is seen. The cerebellar tonsils are normal in configuration. Ventricles, sulci, and cisterns: Normal in configuration. Pituitary and sella: Unremarkable. Intracranial vasculature: Normal flow voids are maintained at the skull base. Orbits: The bony orbits are grossly intact. Orbital contents are normal in appearance. Sinuses and mastoids: There is trace mucosal thickening in the left maxillary antrum. The remaining paranasal sinuses are clear. There are small mastoid effusions. Calvarium: Unremarkable. Cervical cord: Partially visualized cervical spinal cord is normal in morphology and signal intensity. IMPRESSION: 1. There is no hemorrhage, mass effect, or evidence of acute ischemia. 2. There are foci of T2 signal abnormality seen throughout the subcortical and periventricular white matter, with a 10 mm lesion in the right parietal lobe white matter showing postcontrast enhancement. The imaging appearance is nonspecific, but favors a demyelinating process such as multiple sclerosis with active demyelination. [employer] infection is considered much less likely but could potentially appear similar. Clinical correlation will be essential. ACT 112: Negative or not required by law. Electronically signed by: Sammy Sow M.D. 04/05/2023 4:26 PM Cervical Spine MRI 04/06/23 13:53 MRI OF THE CERVICAL SPINE WITH AND WITHOUT CONTRAST CLINICAL HISTORY: Possible multiple sclerosis. Dizziness. Migraines. COMPARISON: Cervical spine CT April 04, 2023. TECHNIQUE: Utilizing a 1.5 Aleksandra magnet and dedicated coil, multiplanar, multiecho imaging of the cervical spine was performed before and after intravenous administration of 6.5 of Gadavist. FINDINGS: There is mild reversal the cervical lordosis. Vertebral body heights are maintained. No suspicious marrow replacement is present. A T1 and T2 hyperintense lesion within C6 vertebral body represents a hemangioma. Cervical cord signal and caliber are normal. There is no intracanalicular mass or fluid crit. No abnormal cord enhancement is present. Paravertebral soft tissues are unremarkable. C2-C3: The central canal and neural foramen are patent. C3-C4: The central canal and neural foramen are patent. C4-C5: There is minimal disc space narrowing and slight disc bulge. The central canal and neural foramen are patent. C5-C6: There is moderate disc space narrowing. Posterior disc osteophyte complex effaces the ventral thecal sac and contacts the cord. There is no cord signal abnormality. There is mild central canal stenosis. Moderate left and mild to moderate right neural foraminal stenosis is present due to uncovertebral hypertrophy. C6-C7: There is moderate disc space narrowing. Posterior disc osteophyte complex effaces the ventral thecal sac. There is mild central canal stenosis. Moderate left and mild to moderate right neural foraminal stenosis due to uncovertebral hypertrophy is present. C7-T1: The central canal and neural foramen are patent. IMPRESSION: 1. Normal cervical cord signal and caliber. No abnormal cord enhancement. 2. Mild central canal stenosis at C5-C6 and C6-C7 due to posterior disc osteophyte complexes. 3. Moderate multilevel neural foraminal stenosis, as detailed above. ACT 112: Negative or not required by law. Electronically signed by: Andres Vázquez M.D. 04/06/2023 3:54 PM Thoracic Spine MRI 04/06/23 13:53 MRI OF THE THORACIC SPINE WITH AND WITHOUT CONTRAST CLINICAL HISTORY: Possible multiple sclerosis. COMPARISON: Thoracic spine CT April 04, 2023. TECHNIQUE: Utilizing a 1.5 Aleksandra magnet and dedicated coil, multiplanar, multiecho imaging of the thoracic spine was performed before and after the intravenous administration of 6.5 cc. FINDINGS: This study is mildly compromised by motion artifact. Vertebral body heights are maintained. A few T1 and T2 hyperintense lesions within the thoracic spine represent hemangiomas. There is no suspicious marrow replacement. There is no thoracic spine fracture. Thoracic cord signal and caliber are normal. There is no abnormal thoracic cord enhancement. There is no intracanalicular mass or fluid collection. Vertebral soft tissues are unremarkable. No disc herniations are identified. The central canal and neural foramen within the thoracic spine are patent. IMPRESSION: Unremarkable MRI of the thoracic spine. Normal thoracic cord signal and caliber. No abnormal cord enhancement. ACT 112: Negative or not required by law. Electronically signed by: Andres Vázquez M.D. 04/06/2023 4:05 PM Lumbar Puncture 04/07/23 08:21 LUMBAR PUNCTURE UNDER FLUOROSCOPY CLINICAL HISTORY: Headache with brain lesions on MRI; suspect MS PROCEDURE: Procedure and risks were explained. Informed consent was obtained. A final timeout was completed. The patient was placed prone on the fluoroscopic examination table. The lower lumbar region was prepped and draped in sterile fashion. 1% lidocaine was utilized for skin anesthesia. Utilizing fluoroscopic guidance, a 22-gauge spinal needle was advanced into the intrathecal space at the L2-3 level. 2 permanent spot images were obtained. Approximately 8 mL of clear CSF fluid was removed and sent to lab for analysis. The needle was removed and Band-Aid applied. The patient tolerated the procedure well. Vital signs will be monitored postprocedure. Total fluoroscopy time 0.13 minutes. DAP is 2.26 mcGy/m2. IMPRESSION: Lumbar puncture as above. Performed, dictated, and signed by Rodriguez Doherty PA-C; to be co-signed by Dr. Sammy Sow. Electronically signed by: Sammy Sow M.D. 04/07/2023 5:00 PM
[2023-04-09] MEDS: oxyCODONE HCL IR 5 MG TAB (IMMEDIATE RELEASE) PO PRN ×2 (16:38→21:01)
[2023-04-09] MEDS: MELATONIN 3 MG TAB PO PRN (21:01)
[2023-04-09] MEDS: ATORVASTATIN 20 MG TAB PO SCH (21:02)
[2023-04-09] MEDS: TOPIRAMATE 50 MG TAB PO SCH (21:02)
[2023-04-10] MEDS: oxyCODONE HCL IR 5 MG TAB (IMMEDIATE RELEASE) PO PRN ×2 (05:53→20:36)
[2023-04-10 05:57] LABS: Basophils # (auto) 0.01 K/uL (0.00-0.20); Basophils % (auto) 0.1 %; Hemoglobin 13.2 g/dl (12.0-16.0); Immature Granulocytes # (auto) 0.05 K/uL (0.01-0.20); Immature Granulocytes % (auto) 0.5 %; Lymphocytes # (auto) 0.79 K/uL (1.20-3.40); Lymphocytes % (auto) 8.7 %; Mean Corpuscular Hemoglobin 30.1 pg (25.0-34.0); Mean Corpuscular Hgb Conc 33.8 g/dL (32.0-36.0); Mean Corpuscular Volume 88.8 fL (80.0-100.0); Monocytes # (auto) 0.39 K/uL (0.11-0.59); Monocytes % (auto) 4.3 %; Neutrophils # (auto) 7.87 K/uL (1.40-6.50); Neutrophils % (auto) 86.4 %; Platelet Count 328 K/uL (130-400); RDW Coefficient of Variation 12.6 % (11.5-14.5); RDW Standard Deviation 41.1 fL (36.4-46.3); Red Blood Count 4.39 M/uL (4.20-5.40); White Blood Count 9.11 K/ul (4.8-10.8)
[2023-04-10 06:05] LABS: BUN Creatinine Ratio 40.3 (10-20); Calcium 9.6 mg/dl (8.6-10.3); Creatinine Clr Calc Pharmacy 74.6 ml/min; Est GFR (African American) 104.8 ml/min; Est GFR (Non-African American) 90.4 ml/min; Potassium 4.1 mmol/L (3.5-5.1)
[2023-04-10] MEDS: SPIRONOLACTONE 25 MG TAB PO SCH (09:30)
[2023-04-10] MEDS: MAGNESIUM OXIDE 400 MG TAB PO SCH (09:31)
[2023-04-10] MEDS: lisinopril 20 MG TAB PO SCH (09:31)
[2023-04-10] MEDS: carvediloL 12.5 MG TAB PO SCH ×2 (09:31→17:45)
[2023-04-10] MEDS: predniSONE 20 MG TAB PO SCH (09:33)
[2023-04-10] MEDS: HEPARIN SOD 5,000 UNIT/0.5 ML VIAL SQ SCH ×2 (09:33→20:37)
[2023-04-10] MEDS: FAMOTIDINE 20 MG TAB PO SCH ×2 (12:01→20:36)
--- NOTE | 2023-04-10 14:16 | Hospitalist Progress Note ---
Date of Service April 10, 2023 Assessment & Plan (1) Hypertensive emergency: (2) Migraine: Plan Patient is a 62 yr female with H/O HTN, HLD, prediabetes and migraine who presents to ED 2/2 Headache x 6 days. Hypertensive Emergency --Head CTA as below --Renal.Artery Duplex:No evidence for renal artery stenosis. --Work-up for secondary hypertension pending --Normal TSH --ECHO: EF 60 to 65%. Mild concentric LVH. Grade 1 diastolic dysfunction. Trace mitral regurgitation. Trace tricuspid regurgitation. Doppler findings do not suggest pulmonary hypertension --cardene gtt discontinued Patient was placed on lisinopril 40 mg once a day, hydrochlorothiazide 25 mg, Coreg 12.5 mg twice daily and Aldactone. Blood pressure trended down to systolic of 90s. Lisinopril decreased to 20 mg once a day. Hydrochlorothiazide on hold. Continue on Aldactone and Coreg. Status Migrainosus Vs headache due to multiple sclerosis --Head CTA:No acute intracranial findings. White matter hypodensities suggestive of small vessel disease. No intracranial aneurysm. No central vessel occlusion. Vascular opacification suboptimal but no significant abnormality identified. Moderate atherosclerotic plaque within the cavernous carotids without stenosis. --Received reglan, benadryl and Solumedrol, sumatriptan given x 1 --BP control -- Counseled on importance of sleep, avoiding triggers --Continue Tylenol --Started on magnesium, vitamin B2 --Add Topamax 50 mg nightly Suspected Demyelinating disease/multiple sclerosis flare --MRI Brain:There is no hemorrhage, mass effect, or evidence of acute ischemia. There are foci of T2 signal abnormality seen throughout the subcortical and periventricular white matter, with a 10 mm lesion in the right parietal lobe white matter showing postcontrast enhancement. The imaging appearance is nonspecific, but favors a demyelinating process such as multiple sclerosis with active demyelination. 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 Clinical correlation will be essential. -- Discussed with neurology on 04/06/2023: Advised to obtain cervical, thoracic MRI and lumbar puncture for oligoclonal bands --Thoracic MRI:Unremarkable MRI of the thoracic spine. Normal thoracic cord signal and caliber. No abnormal cord enhancement. --Cervical MRI:Normal cervical cord signal and caliber. No abnormal cord enhancement. Mild central canal stenosis at C5-C6 and C6-C7 due to posterior disc osteophyte complexes. Moderate multilevel neural foraminal stenosis, as detailed above. --S/P lumbar puncture on 04/07/2023 --F/U CSF studies -- Appreciate neurology input --She received Solu-Medrol 1 g for 3 days. Switched over to prednisone 60 mg once a day as patient showed clinical improvement. -Will reach out to neurology again. -- Needs neuro immunology follow-up as outpatient Cervical canal stenosis MRI as above Orthopedic spine consult noted; no surgical intervention needed. Peripheral artery disease --Head CTA:No acute intracranial findings. White matter hypodensities suggestive of small vessel disease. No intracranial aneurysm. No central vessel occlusion. Vascular opacification suboptimal but no significant abnormality identified. Moderate atherosclerotic plaque within the cavernous carotids without stenosis. -- Started on Lipitor -- Advised lifestyle changes -- Continue aspirin H/O polypectomy Advised to follow-up with any bleeding issues while started on aspirin HLD not on any medications Lipid Panel on 02/03 was Total 308, LDL, 192 and HDL 87 Started on Lipitor 20mg HS Prediabetes HbA1c 5.8 on 02/03 Recommend diet and lifestyle modifications at discharge DVT Px: Heparin Code Status FULL CODE Disposition; patient continues to remain hospitalized due to intractable headache and possible MS flare and required IV steroid. She continues to have headache requiring inpatient care. Please note the above document was generated using voice recognition software. It may contain grammatical, syntax or spelling errors. Any formal questions or concerns about the content, text or information contained within the body of this dictation should be directly addressed to the provider for clarification Admission and Anticipated Discharge Date Admission Date: April 02, 2023 Subjective Patient seen and examined at bedside. Patient reports she is feeling dizzy today. Blood pressure well-controlled. No longer having severe pain She is reporting that she is feeling slightly confused today. Review of Systems Review of Systems: All systems reviewed & are unremarkable except as noted in Subjective Physical Exam Physical Exam: Physical Exam: Vitals signs as noted above General Appearance:Moderately built and nourished, no apparent distress Head: normocephalic, Atraumatic Eyes: normal inspection, EOMI Neck: supple, Trachea midline Respiratory/Chest: Normal breath sounds, CTA, No accessory muscle use Cardiovascular: S1, S2, No murmur Abdomen/GI:Soft, Non tender, Bowel sounds present Extremities/Musculoskeletal:normal inspection, no edema Neurologic/Psych:AAOX3, grossly no focal neurological deficits Skin: normal color, warm Results & Data Results & Data Vital Signs (Past 12 Hours) Vital Signs Temp Pulse Pulse Resp BP Pulse Ox O2 Del Method 04/10/23 12:28 36.6 C 60 20 128/85 94 Room Air 04/10/23 08:29 55 L 04/10/23 07:54 36.9 C 54 L 18 132/85 96 Room Air 04/10/23 05:53 61 130/79 04/10/23 02:34 36.5 C 57 L 16 90/58 L 93 Room Air Laboratory Results Laboratory Results WBC 9.11 K/ul (4.8-10.8) 04/10/23 05:19 RBC 4.39 M/uL (4.20-5.40) 04/10/23 05:19 Hgb 13.2 g/dl (12.0-16.0) 04/10/23 05:19 Hct 39.0 % (37.0-47.0) 04/10/23 05:19 MCV 88.8 fL (80.0-100.0) 04/10/23 05:19 MCH 30.1 pg (25.0-34.0) 04/10/23 05:19 MCHC 33.8 g/dL (32.0-36.0) 04/10/23 05:19 RDW Std Deviation 41.1 fL (36.4-46.3) 04/10/23 05:19 RDW Coeff of Jesus 12.6 % (11.5-14.5) 04/10/23 05:19 Plt Count 328 K/uL (130-400) 04/10/23 05:19 MPV 11.0 fL (9.4-12.4) 04/10/23 05:19 Immature Gran % (Auto) 0.5 % 04/10/23 05:19 Neut % (Auto) 86.4 % 04/10/23 05:19 Lymph % (Auto) 8.7 % 04/10/23 05:19 Harrison % (Auto) 4.3 % 04/10/23 05:19 Eos % (Auto) 0.0 % 04/10/23 05:19 Baso % (Auto) 0.1 % 04/10/23 05:19 Neut # (Auto) 7.87 K/uL (1.40-6.50) H 04/10/23 05:19 Lymph # (Auto) 0.79 K/uL (1.20-3.40) L 04/10/23 05:19 Harrison # (Auto) 0.39 K/uL (0.11-0.59) 04/10/23 05:19 Eos # (Auto) 0.00 K/uL (0.00-0.50) 04/10/23 05:19 Baso # (Auto) 0.01 K/uL (0.00-0.20) 04/10/23 05:19 Immature Gran # (Auto) 0.05 K/uL (0.01-0.20) 04/10/23 05:19 PT 10.8 Seconds (9.0-12.0) 04/02/23 09:05 INR 1.0 (0.9-1.1) 04/02/23 09:05 Sodium 135 mmol/L (136-145) L 04/10/23 05:19 Potassium 4.1 mmol/L (3.5-5.1) 04/10/23 05:19 Chloride 103 mmol/L (98-107) 04/10/23 05:19 Carbon Dioxide 22 mmol/L (21-32) 04/10/23 05:19 Anion Gap 10 (3-11) 04/10/23 05:19 BUN 29 mg/dl (6-23) H 04/10/23 05:19 Creatinine 0.72 mg/dl (0.6-1.2) 04/10/23 05:19 Est Cr Clr Drug Dosing 74.6 ml/min 04/10/23 05:19 Est GFR ( Amer) 104.8 ml/min 04/10/23 05:19 Est GFR (Non-Af Amer) 90.4 ml/min 04/10/23 05:19 BUN/Creatinine Ratio 40.3 (10-20) H 04/10/23 05:19 Glucose 115 mg/dl (70-99(Fasting)) H 04/10/23 05:19 Calcium 9.6 mg/dl (8.6-10.3) 04/10/23 05:19 Magnesium 2.2 mg/dl (1.7-2.4) 04/05/23 04:24 Total Bilirubin 0.4 mg/dl (0.2-1.0) 04/03/23 05:45 Direct Bilirubin 0.0 mg/dl (0-0.2) 04/03/23 05:45 AST 12 U/L (13-39) L 04/03/23 05:45 ALT 12 U/L (7-52) 04/03/23 05:45 Alkaline Phosphatase 50 U/L (34-104) 04/03/23 05:45 Troponin I High Sens 4.5 pg/ml (0-14) 04/02/23 09:05 Total Protein 6.5 gm/dl (6.0-8.3) 04/03/23 05:45 Albumin 3.9 gm/dl (3.4-5.0) 04/03/23 05:45 Globulin 3.0 gm/dl (2.5-4.0) 04/02/23 09:05 Albumin/Globulin Ratio 1.5 (0.9-2) 04/02/23 09:05 Lipase 31 U/L (11-82) 04/02/23 09:05 25-OH Vitamin D Total 16.9 ng/ml (30-100) L 04/08/23 05:50 TSH 0.366 uIu/ml (0.300-4.500) 04/03/23 05:45 Dopamine Cancelled 04/02/23 12:46 Epinephrine Cancelled 04/02/23 12:46 Norepinephrine Cancelled 04/02/23 12:46 Total Catecholamines Cancelled 04/02/23 12:46 Plasma Metanephrine Cancelled 04/02/23 12:46 Plasma Normetanephrine Cancelled 04/02/23 12:46 Plas Total Metaneph Cancelled 04/02/23 12:46 Urine Color Yellow 04/02/23 10:28 Urine Appearance Clear (Clear) 04/02/23 10:28 Urine pH 7.5 (4.5-7.5) 04/02/23 10:28 Ur Specific Comstock 1.007 (1.000-1.030) 04/02/23 10:28 Urine Protein Negative (Negative) 04/02/23 10:28 Urine Glucose (UA) Negative (Negative) 04/02/23 10:28 Urine Ketones Negative (Negative) 04/02/23 10:28 Urine Blood Negative (Negative) 04/02/23 10:28 Urine Nitrite Negative (Negative) 04/02/23 10:28 Urine Bilirubin Negative (Negative) 04/02/23 10:28 Urine Urobilinogen Negative (Negative) 04/02/23 10:28 Ur Leukocyte Esterase Negative (Negative) 04/02/23 10:28 Fld Lyme DNA (PCR) Cancelled 04/07/23 13:15 Fluid Comment 04/07/23 13:15 CSF Appearance Clear 04/07/23 13:15 CSF Color Colorless 04/07/23 13:15 Xanthrochromic No xanthochromia 04/07/23 13:15 CSF WBC 0 (0-5) 04/07/23 13:15 CSF RBC 1 (0-) 04/07/23 13:15 CSF Cell Count Tube # 3 04/07/23 13:15 CSF Chemistry Tube # 1 04/07/23 13:15 CSF Glucose 63 mg/dl (40-70) 04/07/23 13:15 CSF LDH Cancelled 04/07/23 13:15 CSF Total Protein 65.0 mg/dl (15-45) H 04/07/23 13:15 CSF Lyme IgG (Immblot) Cancelled 04/07/23 13:15 CSF Lyme IgG Bands Det Cancelled 04/07/23 13:15 CSF Lyme IgM (Immblot) Cancelled 04/07/23 13:15 CSF Lyme IgM Bands Det Cancelled 04/07/23 13:15 CSF C.neoform/gat PCR Not Detected (NotDetected) 04/07/23 13:15 CSF CMV DNA (PCR) Not Detected (NotDetected) 04/07/23 13:15 CSF Enterovirus (PCR) Not Detected (NotDetected) 04/07/23 13:15 CSF E. coli K1 (PCR) Not Detected (NotDetected) 04/07/23 13:15 CSF H. influenzae (PCR) Not Detected (NotDetected) 04/07/23 13:15 CSF HSV I (PCR) Not Detected (NotDetected) 04/07/23 13:15 CSF HSV II (PCR) Not Detected (NotDetected) 04/07/23 13:15 CSF HHV 6 (PCR) Not Detected (NotDetected) 04/07/23 13:15 CSF L.monocytogenes PCR Not Detected (NotDetected) 04/07/23 13:15 CSF N. meningitidis PCR Not Detected (NotDetected) 04/07/23 13:15 CSF Parechovirus (PCR) Not Detected (NotDetected) 04/07/23 13:15 CSF S. agalactiae (PCR) Not Detected (NotDetected) 04/07/23 13:15 CSF S. pneumoniae (PCR) Not Detected (NotDetected) 04/07/23 13:15 CSF VZV DNA (PCR) Not Detected (NotDetected) 04/07/23 13:15 Anaplasma Smear See Comment 04/02/23 12:46 Babesia Smear See Comment 04/02/23 12:46 Babesia microti DNA PCR Not Detected (Not Detected) 04/02/23 12:46 Lyme Specimen Source Cancelled 04/07/23 13:15 Lyme Disease IgG Ab Negative (Negative) 04/08/23 05:50 Lyme Disease IgM Ab Negative (Negative) 04/08/23 05:50 Lyme DNA Comment Cancelled 04/07/23 13:15 Impressions Chest X-Ray 04/02/23 08:56 XR chest 1V portable HISTORY: 62 years-old Female Chest pain, nonspecific acute chest pain COMPARISON: 06/27/2018 TECHNIQUE: AP view the chest FINDINGS: Right axilla is normal. No pneumothorax, pleural effusion, airspace consolidation or pulmonary edema. Bones appear grossly intact. IMPRESSION: No acute process. ACT 112: Negative or not required by law. The above report was generated using voice recognition software. It may contain grammatical, syntax or spelling errors. Electronically signed by: Newton Guaman M.D. 04/02/2023 9:58 AM Head CTA 04/02/23 09:03 CT angio head wo/w CLINICAL HISTORY: FOREMAN x 6 days, HTN COMPARISON STUDY: No previous studies for comparison. TECHNIQUE: Axial images of the head were obtained before and after intravenous administration of 89 cc of Optiray 320 IV. Arterial phase imaging was performed. Sagittal and coronal reconstructions were viewed. Automated exposure control was utilized for the study. A dose lowering technique was utilized adhering to the principles of ALARA. FINDINGS: No acute intracranial hemorrhage, midline shift or mass effect is present. Ventricular system is normal. Basal cisterns are patent. There are no extra axial collections. White matter hypodensities suggest small vessel disease. There are no findings to suggest acute dural sinus thrombosis or acute territorial infarct. No significant calvarial abnormalities are present. A small amount of fluid within the inferior bilateral mastoid air cells is present. No intracranial mass or pathologic enhancement is present. Major intracranial vessels are grossly patent. No intracranial aneurysm is identified. There is no dissection within the intracranial vessels. Vascular opacification is somewhat suboptimal. There are bilateral posterior communicating arteries. There is moderate atherosclerotic plaque within the cavernous carotids without stenosis. IMPRESSION: 1. No acute intracranial findings. 2. White matter hypodensities suggestive of small vessel disease. 3. No intracranial aneurysm. No central vessel occlusion. Vascular opacification suboptimal but no significant abnormality identified. ACT 112: Negative or not required by law. Electronically signed by: Andres Vázquez M.D. 04/02/2023 11:47 AM Renal Artery Duplex 04/03/23 00:00 US duplex renal artery CLINICAL HISTORY: eval for renal artery stenosis. Hypertension. COMPARISON STUDY: Abdomen and pelvis CT 04/02/2023. FINDINGS: The right kidney measures 10.4 cm and the left kidney measures 10.3 cm. No hydronephrosis. The peak systolic velocity within the mid right renal artery was 117 cm/s in the proximal left renal artery was 106 cm/s. Resistive indices of the bilateral renal arcuate arteries are less than 0.7. The bilateral renal veins are patent. IMPRESSION: No evidence for renal artery stenosis. ACT 112: Negative or not required by law. Electronically signed by: Mau Merrill M.D. 04/03/2023 10:[address] 04/04/23 21:04 CT SCAN OF THE CERVICAL SPINE CLINICAL HISTORY: Atraumatic neck pain. COMPARISON STUDY: No priors. TECHNIQUE: CT scan of the cervical spine is performed from the skull base to the upper thoracic spine. Images are reviewed in the axial, sagittal, and coronal planes. IV contrast was not administered for this examination. A dose lowering technique was utilized adhering to the principles of ALARA. CT DOSE: 2135.14 mGy.cm FINDINGS: Skeletal structures: The skeletal structures are osteopenic. There is no evidence of fracture or subluxation involving the cervical spine. Vertebral body height and alignment are maintained. There is straightening of the cervical lordosis. Anterior osteophytes are seen throughout. The odontoid process and lateral masses are intact. The atlantoaxial articulation is preserved. The spinous processes appear intact. Intervertebral discs: There is moderate disc space narrowing at C5-C6 and C6-C7. The remaining disc spaces appear maintained Central canal: Posterior disc osteophyte complexes at C5-C6 and C6-C7 may contribute to acquired compromise of the central canal. Soft tissues: The prevertebral and paraspinous soft tissues are within normal limits. There is atherosclerotic calcification of the carotid bulbs. Calvarium: The visualized calvarium at the skull base appears intact. Brain parenchyma: Partially visualized brain parenchyma at the skull base is within normal limits. Sinuses and mastoids: The visualized paranasal sinuses are clear. There are small mastoid effusions. Cerumen is noted in the left external auditory canal. Lung apices: Clear as visualized. IMPRESSION: No acute bony abnormality is seen involving the cervical spine. ACT 112: Negative or not required by law. Electronically signed by: Sammy Sow M.D. 04/04/2023 9:[address] 04/04/23 21:04 CT SCAN OF THE BRAIN WITHOUT IV CONTRAST CLINICAL HISTORY: Headache. COMPARISON STUDY: CT of the brain dated 04/02/2023. TECHNIQUE: Unenhanced axial CT scan of the brain is performed from the vertex to the skull base. A dose lowering technique was utilized adhering to the principles of ALARA. FINDINGS: Brain parenchyma: There is age-related involutional change noting [id number] subcortical and periventricular microangiopathic disease. There is no hemorrhage, mass effect, or evidence of acute territorial ischemia by CT criteria. Sierra-white matter differentiation is preserved. No extra-axial fluid collection is seen. Ventricles, sulci, cisterns: Prominent secondary to involutional change. Intracranial vasculature: There is atherosclerotic calcification of the cavernous carotid arteries. Calvarium: Unremarkable. Sinuses and mastoids: The visualized paranasal sinuses are clear. There is trace mastoid effusions. Cerumen is noted in the left external auditory canal. Orbits: The bony orbits are grossly intact. IMPRESSION: There is no hemorrhage, mass effect, or evidence of acute territorial ischemia by CT criteria. ACT 112: Negative or not required by law. Electronically signed by: Sammy Sow M.D. 04/04/2023 9:[address] 04/04/23 21:04 CT SCAN OF THE THORACIC SPINE WITHOUT CONTRAST CLINICAL HISTORY: Atraumatic thoracic back pain. COMPARISON STUDY: No priors. TECHNIQUE: CT scan of the thoracic spine is performed from the lower cervical spine to the upper lumbar spine. Images are reviewed in the axial, sagittal, and coronal planes. IV contrast was not administered for this examination. A dose lowering technique was utilized adhering to the principles of ALARA. FINDINGS: The skeletal structures are osteopenic. There is no evidence of fracture or malalignment involving the thoracic spine. Vertebral body height and alignment are maintained throughout the thoracic spine. Tiny anterior osteophytes are seen throughout. The transverse and spinous processes appear intact. No lytic or blastic lesion is seen. The disc spaces appear maintained. There is no CT evidence of large disc herniation or central canal stenosis. The paraspinous soft tissues are normal as imaged. The imaged lung parenchyma appears clear noting dependent atelectasis. The visualized posterior ribs appear intact. IMPRESSION: No acute bony abnormality is seen involving the thoracic spine. ACT 112: Negative or not required by law. Electronically signed by: Sammy Sow M.D. 04/04/2023 10:14 PM Brain MRI 04/05/23 12:12 MRI OF THE BRAIN COMBO CLINICAL HISTORY: Headache. COMPARISON STUDY: CT of the brain dated 04/04/2023. TECHNIQUE: MRI of the brain was performed utilizing various T1 and T2-weighted sequences in the axial, sagittal, and coronal planes. Contrast-enhanced sequences were acquired following the administration of 6.5 cc of Gadavist. FINDINGS: Brain parenchyma: There are numerous foci of T2 signal abnormality scattered throughout the white matter. A 10 mm lesion in the right parietal white matter seen on coronal image #16 shows peripheral postcontrast enhancement. No a dditional lesions show abnormal enhancement. There is no hemorrhage or mass effect. There is no restricted diffusion to suggest acute ischemia. No enhancing mass lesion is identified on the postcontrast images. Sierra-white matter differentiation is preserved. No extra-axial fluid collection is seen. The cerebellar tonsils are normal in configuration. Ventricles, sulci, and cisterns: Normal in configuration. Pituitary and sella: Unremarkable. Intracranial vasculature: Normal flow voids are maintained at the skull base. Orbits: The bony orbits are grossly intact. Orbital contents are normal in appearance. Sinuses and mastoids: There is trace mucosal thickening in the left maxillary antrum. The remaining paranasal sinuses are clear. There are small mastoid effusions. Calvarium: Unremarkable. Cervical cord: Partially visualized cervical spinal cord is normal in morphology and signal intensity. IMPRESSION: 1. There is no hemorrhage, mass effect, or evidence of acute ischemia. 2. There are foci of T2 signal abnormality seen throughout the subcortical and periventricular white matter, with a 10 mm lesion in the right parietal lobe white matter showing postcontrast enhancement. The imaging appearance is nonspecific, but favors a demyelinating process such as multiple sclerosis with active demyelination. 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 Clinical correlation will be essential. ACT 112: Negative or not required by law. Electronically signed by: Sammy Sow M.D. 04/05/2023 4:26 PM Cervical Spine MRI 04/06/23 13:53 MRI OF THE CERVICAL SPINE WITH AND WITHOUT CONTRAST CLINICAL HISTORY: Possible multiple sclerosis. Dizziness. Migraines. COMPARISON: Cervical spine CT April 04, 2023. TECHNIQUE: Utilizing a 1.5 Aleksanrda magnet and dedicated coil, multiplanar, multiecho imaging of the cervical spine was performed before and after intravenous administration of 6.5 of Gadavist. FINDINGS: There is mild reversal the cervical lordosis. Vertebral body heights are maintained. No suspicious marrow replacement is present. A T1 and T2 hyperintense lesion within C6 vertebral body represents a hemangioma. Cervical cord signal and caliber are normal. There is no intracanalicular mass or fluid crit. No abnormal cord enhancement is present. Paravertebral soft tissues are unremarkable. C2-C3: The central canal and neural foramen are patent. C3-C4: The central canal and neural foramen are patent. C4-C5: There is minimal disc space narrowing and slight disc bulge. The central canal and neural foramen are patent. C5-C6: There is moderate disc space narrowing. Posterior disc osteophyte complex effaces the ventral thecal sac and contacts the cord. There is no cord signal abnormality. There is mild central canal stenosis. Moderate left and mild to moderate right neural foraminal stenosis is present due to uncovertebral hypertrophy. C6-C7: There is moderate disc space narrowing. Posterior disc osteophyte complex effaces the ventral thecal sac. There is mild central canal stenosis. Moderate left and mild to moderate right neural foraminal stenosis due to uncovertebral hypertrophy is present. C7-T1: The central canal and neural foramen are patent. IMPRESSION: 1. Normal cervical cord signal and caliber. No abnormal cord enhancement. 2. Mild central canal stenosis at C5-C6 and C6-C7 due to posterior disc osteophyte complexes. 3. Moderate multilevel neural foraminal stenosis, as detailed above. ACT 112: Negative or not required by law. Electronically signed by: Andres Vázquez M.D. 04/06/2023 3:54 PM Thoracic Spine MRI 04/06/23 13:53 MRI OF THE THORACIC SPINE WITH AND WITHOUT CONTRAST CLINICAL HISTORY: Possible multiple sclerosis. COMPARISON: Thoracic spine CT April 04, 2023. TECHNIQUE: Utilizing a 1.5 Aleksandra magnet and dedicated coil, multiplanar, multiecho imaging of the thoracic spine was performed before and after the intravenous administration of 6.5 cc. FINDINGS: This study is mildly compromised by motion artifact. Vertebral body heights are maintained. A few T1 and T2 hyperintense lesions within the thoracic spine represent hemangiomas. There is no suspicious marrow replacement. There is no thoracic spine fracture. Thoracic cord signal and caliber are normal. There is no abnormal thoracic cord enhancement. There is no intracanalicular mass or fluid collection. Vertebral soft tissues are unremarkable. No disc herniations are identified. The central canal and neural foramen within the thoracic spine are patent. IMPRESSION: Unremarkable MRI of the thoracic spine. Normal thoracic cord signal and caliber. No abnormal cord enhancement. ACT 112: Negative or not required by law. Electronically signed by: Andres Vázquez M.D. 04/06/2023 4:05 PM Lumbar Puncture 04/07/23 08:21 LUMBAR PUNCTURE UNDER FLUOROSCOPY CLINICAL HISTORY: Headache with brain lesions on MRI; suspect MS PROCEDURE: Procedure and risks were explained. Informed consent was obtained. A final timeout was completed. The patient was placed prone on the fluoroscopic examination table. The lower lumbar region was prepped and draped in sterile fashion. 1% lidocaine was utilized for skin anesthesia. Utilizing fluoroscopic guidance, a 22-gauge spinal needle was advanced into the intrathecal space at the L2-3 level. 2 permanent spot images were obtained. Approximately 8 mL of clear CSF fluid was removed and sent to lab for analysis. The needle was removed and Band-Aid applied. The patient tolerated the procedure well. Vital signs will be monitored postprocedure. Total fluoroscopy time 0.13 minutes. DAP is 2.26 mcGy/m2. IMPRESSION: Lumbar puncture as above. Performed, dictated, and signed by Rodriguez Doherty PA-C; to be co-signed by Dr. Sammy Sow. Electronically signed by: Sammy Sow M.D. 04/07/2023 5:00 PM
[2023-04-10] MEDS: ATORVASTATIN 20 MG TAB PO SCH (20:35)
[2023-04-10] MEDS: TOPIRAMATE 50 MG TAB PO SCH (20:35)
[2023-04-10] MEDS: MELATONIN 3 MG TAB PO PRN (20:36)
[2023-04-10] MEDS ORDERED: KETOROLAC TROMETHAMINE 15 MG/ML VIAL IV ONE (23:08)
[2023-04-11 05:51] LABS: Hematocrit (blood only) 37.7 % (37.0-47.0); Hemoglobin 12.9 g/dl (12.0-16.0); Immature Granulocytes # (auto) 0.04 K/uL (0.01-0.20); Immature Granulocytes % (auto) 0.6 %; Lymphocytes % (auto) 30.5 %; Mean Corpuscular Hemoglobin 30.4 pg (25.0-34.0); Mean Corpuscular Hgb Conc 34.2 g/dL (32.0-36.0); Mean Corpuscular Volume 88.7 fL (80.0-100.0); Mean Platelet Volume 10.8 fL (9.4-12.4); Monocytes # (auto) 0.86 K/uL (0.11-0.59); Monocytes % (auto) 12.5 %; Neutrophils # (auto) 3.89 K/uL (1.40-6.50); Neutrophils % (auto) 56.4 %; Platelet Count 297 K/uL (130-400); RDW Coefficient of Variation 12.6 % (11.5-14.5); Red Blood Count 4.25 M/uL (4.20-5.40); White Blood Count 6.89 K/ul (4.8-10.8)
[2023-04-11 06:10] LABS: BUN Creatinine Ratio 34.3 (10-20); Calcium 9.4 mg/dl (8.6-10.3); Creatinine Clr Calc Pharmacy 49.7 ml/min; Est GFR (African American) 64.2 ml/min; Est GFR (Non-African American) 55.4 ml/min; Potassium 3.9 mmol/L (3.5-5.1)
[2023-04-11] MEDS: oxyCODONE HCL IR 5 MG TAB (IMMEDIATE RELEASE) PO PRN (07:26)
[2023-04-11] MEDS: SPIRONOLACTONE 25 MG TAB PO SCH (07:27)
[2023-04-11] MEDS: FAMOTIDINE 20 MG TAB PO SCH (07:27)
[2023-04-11] MEDS: lisinopril 20 MG TAB PO SCH (07:27)
[2023-04-11] MEDS: HEPARIN SOD 5,000 UNIT/0.5 ML VIAL SQ SCH (07:27)
[2023-04-11] MEDS: carvediloL 12.5 MG TAB PO SCH (07:28)
[2023-04-11] MEDS: MAGNESIUM OXIDE 400 MG TAB PO SCH (07:28)
[2023-04-11] MEDS: predniSONE 20 MG TAB PO SCH (07:28)
[2023-04-11] MEDS ORDERED: ASPIRIN 81 MG ECTAB PO SCH (09:00)
[2023-04-11 12:37] LABS: Anti Nuclear Antibody Screen POSITIVE (NEGATIVE); HIV 1 RNA PCR Copies/ML NOT DETECTED copies/mL (NOT DETECTED); HIV-1 RNA Log Copies/mL NOT DETECTED (NOT DETECTED)
--- NOTE | 2023-04-11 13:47 | Cardiology Progress Note ---
Date of Service April 11, 2023 Assessment & Plan (1) Hypertensive emergency: Plan: -Patient has completed a 5-day course of IV methylprednisolone. A repeat MRI is planned for reassessment of the 10 mm lesion in the right parietal lobe to see if there is any changes since the steroid course. -Blood pressures improved, with multiple readings on the lower side. Hydrochlorothiazide has been held and most recently discontinued, most recent dose on 04/08/2023. Nifedipine previously discontinued. Lisinopril dose already reduced from 40 mg to 20 mg. Carvedilol dose titrated down to 6.25 mg twice daily -- Agree with the de-escalation of the antihypertensive agents. Cardiology to sign off for now. Dr Ocasio rounding for 04/12/23, call with questions or concerns. (2) Dyslipidemia, goal LDL below 70: Plan: -Continue aspirin, atorvastatin. (3) Demyelinating disease of central nervous system: Plan: -Neurology input noted and appreciated. Pt to receive solumedrol, 1,000 mg daily x 5 days. Pt s/p Lumbar puncture on 04/07/23. Consider adding pharmacologic DVT prophylaxis. Admission and Anticipated Discharge Date Admission Date: April 02, 2023 Subjective Patient seen in cardiology follow-up. Denies any chest discomfort or shortness of breath. She is having progressive concerns about memory impairment. Telemetry reveals sinus rhythm and sinus bradycardia in the range of 40 to 60 bpm overnight last night and in the 50s to 60s during waking hours today. Physical Exam Constitutional: WD/WN, vitals as above Respiratory: normal respiratory effort, lungs clear to auscultation Cardiovascular: RRR, no murmur, no edema Gastrointestinal (Abdomen): normal bowel sounds, soft, nontender, no hepatosplenomegaly Neurologic: PERRL, EOMI, accommodation nl, no face palsy, no dysarthria Results & Data Vital Signs (Past 12 Hours) Vital Signs Temp Pulse Pulse Resp BP BP Pulse Ox 04/11/23 10:46 36.4 C L 54 L 16 118/78 96 04/11/23 08:00 48 L 04/11/23 06:54 36.7 C 52 L 17 131/87 96 04/11/23 03:00 36.4 C L 52 L 18 112/75 96 O2 Del Method 04/11/23 10:46 Room Air 04/11/23 08:00 04/11/23 06:54 Room Air 04/11/23 03:00 Room Air
--- NOTE | 2023-04-11 15:08 | Hospitalist Progress Note ---
Date of Service April 11, 2023 Assessment & Plan (1) Hypertensive emergency: (2) Migraine: Plan Patient is a 62 yr female with H/O HTN, HLD, prediabetes and migraine who presents to ED 2/2 Headache x 6 days. Hypertensive Emergency --Head CTA as below --Renal.Artery Duplex:No evidence for renal artery stenosis. --Work-up for secondary hypertension pending --Normal TSH --ECHO: EF 60 to 65%. Mild concentric LVH. Grade 1 diastolic dysfunction. Trace mitral regurgitation. Trace tricuspid regurgitation. Doppler findings do not suggest pulmonary hypertension --cardene gtt discontinued Initially, patient was placed on lisinopril 40 mg once a day, hydrochlorothiazide 25 mg, Coreg 12.5 mg twice daily and Aldactone. Blood pressure trended down to systolic of 90s. Lisinopril decreased to 20 mg once a day. Hydrochlorothiazide on hold. Continue Aldactone and Coreg 6.25 twice daily Status Migrainosus Vs headache due to multiple sclerosis --Head CTA:No acute intracranial findings. White matter hypodensities suggestive of small vessel disease. No intracranial aneurysm. No central vessel occlusion. Vascular opacification suboptimal but no significant abnormality identified. Moderate atherosclerotic plaque within the cavernous carotids without stenosis. --Received reglan, benadryl and Solumedrol, sumatriptan given x 1 --BP control -- Counseled on importance of sleep, avoiding triggers --Continue Tylenol --Started on magnesium --Add Topamax 50 mg nightly as per neurology recommendation. Suspected Demyelinating disease/multiple sclerosis flare --MRI Brain:There is no hemorrhage, mass effect, or evidence of acute ischemia. There are foci of T2 signal abnormality seen throughout the subcortical and periventricular white matter, with a 10 mm lesion in the right parietal lobe white matter showing postcontrast enhancement. The imaging appearance is nonspecific, but favors a demyelinating process such as multiple sclerosis with active demyelination. 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 Clinical correlation will be essential. -- Discussed with neurology on 04/06/2023: Advised to obtain cervical, thoracic MRI and lumbar puncture for oligoclonal bands --Thoracic MRI:Unremarkable MRI of the thoracic spine. Normal thoracic cord signal and caliber. No abnormal cord enhancement. --Cervical MRI:Normal cervical cord signal and caliber. No abnormal cord enhancement. Mild central canal stenosis at C5-C6 and C6-C7 due to posterior disc osteophyte complexes. Moderate multilevel neural foraminal stenosis, as detailed above. --S/P lumbar puncture on 04/07/2023 --F/U CSF studies -- Appreciate neurology input --She received Solu-Medrol 1 g for 3 days. Switched over to prednisone 60 mg once a day as patient showed clinical improvement. Discussed with neurology(Dr. Yasir Rodríguez) today again. Discussed about concern of patient's delirium. High-dose steroid can certainly contribute to that as per neurology. Recommended repeat MRI with and without contrast. Neurology also recommended EEG. Neurology to see patient via teleneurology today. Cervical canal stenosis MRI as above Orthopedic spine consult noted; no surgical intervention needed. Peripheral artery disease --Head CTA:No acute intracranial findings. White matter hypodensities suggestive of small vessel disease. No intracranial aneurysm. No central vessel occlusion. Vascular opacification suboptimal but no significant abnormality identified. Moderate atherosclerotic plaque within the cavernous carotids without stenosis. -- Started on Lipitor -- Advised lifestyle changes -- Continue aspirin H/O polypectomy Advised to follow-up with any bleeding issues while started on aspirin HLD not on any medications Lipid Panel on 02/03 was Total 308, LDL, 192 and HDL 87 Started on Lipitor 20mg HS Prediabetes HbA1c 5.8 on 02/03 Recommend diet and lifestyle modifications at discharge DVT Px: Heparin Code Status FULL CODE Disposition; patient continues to remain hospitalized due to intractable headache and possible MS flare and required IV steroid. She continues to have headache requiring inpatient care. Neurology recommends repeat MRI with and without contrast. They also recommended EEG. Time spent evaluating patient, direct bedside care, chart review, placing orders, interpretation of diagnostic studies, discussion with consultants, patient, and family members, as well as other required patient management activities is 60 minutes. Please note the above document was generated using voice recognition software. It may contain grammatical, syntax or spelling errors. Any formal questions or concerns about the content, text or information contained within the body of this dictation should be directly addressed to the provider for clarification Admission and Anticipated Discharge Date Admission Date: April 02, 2023 Subjective Patient seen and examined at the bedside. She reports that she is not feeling herself. She reports intermittent headaches sometimes. Review of Systems Review of Systems: All systems reviewed & are unremarkable except as noted in Subjective Physical Exam Physical Exam: Physical Exam: Vitals signs as noted above General Appearance:Moderately built and nourished, no apparent distress Head: normocephalic, Atraumatic Eyes: normal inspection, EOMI Neck: supple, Trachea midline Respiratory/Chest: Normal breath sounds, CTA, No accessory muscle use Cardiovascular: S1, S2, No murmur Abdomen/GI:Soft, Non tender, Bowel sounds present Extremities/Musculoskeletal:normal inspection, no edema Neurologic/Psych:AAOX3, grossly no focal neurological deficits Skin: normal color, warm Results & Data Results & Data Vital Signs (Past 12 Hours) Vital Signs Temp Pulse Pulse Resp BP Pulse Ox O2 Del Method 04/11/23 10:46 36.4 C L 54 L 16 118/78 96 Room Air 04/11/23 08:00 48 L 04/11/23 06:54 36.7 C 52 L 17 131/87 96 Room Air Laboratory Results Laboratory Results WBC 6.89 K/ul (4.8-10.8) 04/11/23 05:21 RBC 4.25 M/uL (4.20-5.40) 04/11/23 05:21 Hgb 12.9 g/dl (12.0-16.0) 04/11/23 05:21 Hct 37.7 % (37.0-47.0) 04/11/23 05:21 MCV 88.7 fL (80.0-100.0) 04/11/23 05:21 MCH 30.4 pg (25.0-34.0) 04/11/23 05:21 MCHC 34.2 g/dL (32.0-36.0) 04/11/23 05:21 RDW Std Deviation 41.0 fL (36.4-46.3) 04/11/23 05:21 RDW Coeff of Jesus 12.6 % (11.5-14.5) 04/11/23 05:21 Plt Count 297 K/uL (130-400) 04/11/23 05:21 MPV 10.8 fL (9.4-12.4) 04/11/23 05:21 Immature Gran % (Auto) 0.6 % 04/11/23 05:21 Neut % (Auto) 56.4 % 04/11/23 05:21 Lymph % (Auto) 30.5 % 04/11/23 05:21 Coos % (Auto) 12.5 % 04/11/23 05:21 Eos % (Auto) 0.0 % 04/11/23 05:21 Baso % (Auto) 0.0 % 04/11/23 05:21 Neut # (Auto) 3.89 K/uL (1.40-6.50) 04/11/23 05:21 Lymph # (Auto) 2.10 K/uL (1.20-3.40) 04/11/23 05:21 Coos # (Auto) 0.86 K/uL (0.11-0.59) H 04/11/23 05:21 Eos # (Auto) 0.00 K/uL (0.00-0.50) 04/11/23 05:21 Baso # (Auto) 0.00 K/uL (0.00-0.20) 04/11/23 05:21 Immature Gran # (Auto) 0.04 K/uL (0.01-0.20) 04/11/23 05:21 PT 10.8 Seconds (9.0-12.0) 04/02/23 09:05 INR 1.0 (0.9-1.1) 04/02/23 09:05 Sodium 133 mmol/L (136-145) L 04/11/23 05:21 Potassium 3.9 mmol/L (3.5-5.1) 04/11/23 05:21 Chloride 103 mmol/L (98-107) 04/11/23 05:21 Carbon Dioxide 23 mmol/L (21-32) 04/11/23 05:21 Anion Gap 7 (3-11) 04/11/23 05:21 BUN 37 mg/dl (6-23) H 04/11/23 05:21 Creatinine 1.08 mg/dl (0.6-1.2) D 04/11/23 05:21 Est Cr Clr Drug Dosing 49.7 ml/min 04/11/23 05:21 Est GFR ( Amer) 64.2 ml/min 04/11/23 05:21 Est GFR (Non-Af Amer) 55.4 ml/min 04/11/23 05:21 BUN/Creatinine Ratio 34.3 (10-20) H 04/11/23 05:21 Glucose 82 mg/dl (70-99(Fasting)) 04/11/23 05:21 Calcium 9.4 mg/dl (8.6-10.3) 04/11/23 05:21 Magnesium 2.2 mg/dl (1.7-2.4) 04/05/23 04:24 Total Bilirubin 0.4 mg/dl (0.2-1.0) 04/03/23 05:45 Direct Bilirubin 0.0 mg/dl (0-0.2) 04/03/23 05:45 AST 12 U/L (13-39) L 04/03/23 05:45 ALT 12 U/L (7-52) 04/03/23 05:45 Alkaline Phosphatase 50 U/L (34-104) 04/03/23 05:45 Troponin I High Sens 4.5 pg/ml (0-14) 04/02/23 09:05 Total Protein 6.5 gm/dl (6.0-8.3) 04/03/23 05:45 Albumin 3.9 gm/dl (3.4-5.0) 04/03/23 05:45 Globulin 3.0 gm/dl (2.5-4.0) 04/02/23 09:05 Albumin/Globulin Ratio 1.5 (0.9-2) 04/02/23 09:05 Lipase 31 U/L (11-82) 04/02/23 09:05 25-OH Vitamin D Total 16.9 ng/ml (30-100) L 04/08/23 05:50 TSH 0.366 uIu/ml (0.300-4.500) 04/03/23 05:45 Dopamine Cancelled 04/02/23 12:46 Epinephrine Cancelled 04/02/23 12:46 Norepinephrine Cancelled 04/02/23 12:46 Total Catecholamines Cancelled 04/02/23 12:46 Plasma Metanephrine Cancelled 04/02/23 12:46 Plasma Normetanephrine Cancelled 04/02/23 12:46 Plas Total Metaneph Cancelled 04/02/23 12:46 Urine Color Yellow 04/02/23 10:28 Urine Appearance Clear (Clear) 04/02/23 10:28 Urine pH 7.5 (4.5-7.5) 04/02/23 10:28 Ur Specific Sylva 1.007 (1.000-1.030) 04/02/23 10:28 Urine Protein Negative (Negative) 04/02/23 10:28 Urine Glucose (UA) Negative (Negative) 04/02/23 10:28 Urine Ketones Negative (Negative) 04/02/23 10:28 Urine Blood Negative (Negative) 04/02/23 10:28 Urine Nitrite Negative (Negative) 04/02/23 10:28 Urine Bilirubin Negative (Negative) 04/02/23 10:28 Urine Urobilinogen Negative (Negative) 04/02/23 10:28 Ur Leukocyte Esterase Negative (Negative) 04/02/23 10:28 Fld Lyme DNA (PCR) Cancelled 04/07/23 13:15 Fluid Comment 04/07/23 13:15 CSF Appearance Clear 04/07/23 13:15 CSF Color Colorless 04/07/23 13:15 Xanthrochromic No xanthochromia 04/07/23 13:15 CSF WBC 0 (0-5) 04/07/23 13:15 CSF RBC 1 (0-) 04/07/23 13:15 CSF Cell Count Tube # 3 04/07/23 13:15 CSF Chemistry Tube # 1 04/07/23 13:15 CSF Glucose 63 mg/dl (40-70) 04/07/23 13:15 CSF LDH Cancelled 04/07/23 13:15 CSF Total Protein 65.0 mg/dl (15-45) H 04/07/23 13:15 CSF Lyme IgG (Immblot) Cancelled 04/07/23 13:15 CSF Lyme IgG Bands Det Cancelled 04/07/23 13:15 CSF Lyme IgM (Immblot) Cancelled 04/07/23 13:15 CSF Lyme IgM Bands Det Cancelled 04/07/23 13:15 CSF C.neoform/gat PCR Not Detected (NotDetected) 04/07/23 13:15 CSF CMV DNA (PCR) Not Detected (NotDetected) 04/07/23 13:15 CSF Enterovirus (PCR) Not Detected (NotDetected) 04/07/23 13:15 CSF E. coli K1 (PCR) Not Detected (NotDetected) 04/07/23 13:15 CSF H. influenzae (PCR) Not Detected (NotDetected) 04/07/23 13:15 CSF HSV I (PCR) Not Detected (NotDetected) 04/07/23 13:15 CSF HSV II (PCR) Not Detected (NotDetected) 04/07/23 13:15 CSF HHV 6 (PCR) Not Detected (NotDetected) 04/07/23 13:15 CSF L.monocytogenes PCR Not Detected (NotDetected) 04/07/23 13:15 CSF N. meningitidis PCR Not Detected (NotDetected) 04/07/23 13:15 CSF Parechovirus (PCR) Not Detected (NotDetected) 04/07/23 13:15 CSF S. agalactiae (PCR) Not Detected (NotDetected) 04/07/23 13:15 CSF S. pneumoniae (PCR) Not Detected (NotDetected) 04/07/23 13:15 CSF VZV DNA (PCR) Not Detected (NotDetected) 04/07/23 13:15 BECKIE Screen POSITIVE (NEGATIVE) A 04/08/23 05:50 Anaplasma Smear See Comment 04/02/23 12:46 Babesia Smear See Comment 04/02/23 12:46 Babesia microti DNA PCR Not Detected (Not Detected) 04/02/23 12:46 Lyme Specimen Source Cancelled 04/07/23 13:15 Lyme Disease IgG Ab Negative (Negative) 04/08/23 05:50 Lyme Disease IgM Ab Negative (Negative) 04/08/23 05:50 Lyme DNA Comment Cancelled 04/07/23 13:15 HIV-1 RNA copies/mL NOT DETECTED copies/mL (NOT DETECTED) 04/08/23 05:50 HIV-1 RNA logcopies/mL NOT DETECTED (NOT DETECTED) 04/08/23 05:50 Impressions Chest X-Ray 04/02/23 08:56 XR chest 1V portable HISTORY: 62 years-old Female Chest pain, nonspecific acute chest pain COMPARISON: 06/27/2018 TECHNIQUE: AP view the chest FINDINGS: Right axilla is normal. No pneumothorax, pleural effusion, airspace consolidation or pulmonary edema. Bones appear grossly intact. IMPRESSION: No acute process. ACT 112: Negative or not required by law. The above report was generated using voice recognition software. It may contain grammatical, syntax or spelling errors. Electronically signed by: Newton Guaman M.D. 04/02/2023 9:58 AM Head CTA 04/02/23 09:03 CT angio head wo/w CLINICAL HISTORY: FOREMAN x 6 days, HTN COMPARISON STUDY: No previous studies for comparison. TECHNIQUE: Axial images of the head were obtained before and after intravenous administration of 89 cc of Optiray 320 IV. Arterial phase imaging was performed. Sagittal and coronal reconstructions were viewed. Automated exposure control was utilized for the study. A dose lowering technique was utilized adhering to the principles of ALARA. FINDINGS: No acute intracranial hemorrhage, midline shift or mass effect is present. Ventricular system is normal. Basal cisterns are patent. There are no extra axial collections. White matter hypodensities suggest small vessel disease. There are no findings to suggest acute dural sinus thrombosis or acute territorial infarct. No significant calvarial abnormalities are present. A small amount of fluid within the inferior bilateral mastoid air cells is present. No intracranial mass or pathologic enhancement is present. Major intracranial vessels are grossly patent. No intracranial aneurysm is identified. There is no dissection within the intracranial vessels. Vascular opacification is somewhat s uboptimal. There are bilateral posterior communicating arteries. There is moderate atherosclerotic plaque within the cavernous carotids without stenosis. IMPRESSION: 1. No acute intracranial findings. 2. White matter hypodensities suggestive of small vessel disease. 3. No intracranial aneurysm. No central vessel occlusion. Vascular opacification suboptimal but no significant abnormality identified. ACT 112: Negative or not required by law. Electronically signed by: Andres Vázquez M.D. 04/02/2023 11:47 AM Renal Artery Duplex 04/03/23 00:00 US duplex renal artery CLINICAL HISTORY: eval for renal artery stenosis. Hypertension. COMPARISON STUDY: Abdomen and pelvis CT 04/02/2023. FINDINGS: The right kidney measures 10.4 cm and the left kidney measures 10.3 cm. No hydronephrosis. The peak systolic velocity within the mid right renal artery was 117 cm/s in the proximal left renal artery was 106 cm/s. Resistive indices of the bilateral renal arcuate arteries are less than 0.7. The bilateral renal veins are patent. IMPRESSION: No evidence for renal artery stenosis. ACT 112: Negative or not required by law. Electronically signed by: Mau Merrill M.D. 04/03/2023 10:[address] 04/04/23 21:04 CT SCAN OF THE CERVICAL SPINE CLINICAL HISTORY: Atraumatic neck pain. COMPARISON STUDY: No priors. TECHNIQUE: CT scan of the cervical spine is performed from the skull base to the upper thoracic spine. Images are reviewed in the axial, sagittal, and coronal planes. IV contrast was not administered for this examination. A dose lowering technique was utilized adhering to the principles of ALARA. CT DOSE: 2135.14 mGy.cm FINDINGS: Skeletal structures: The skeletal structures are osteopenic. There is no evidence of fracture or subluxation involving the cervical spine. Vertebral body height and alignment are maintained. There is straightening of the cervical lordosis. Anterior osteophytes are seen throughout. The odontoid process and lateral masses are intact. The atlantoaxial articulation is preserved. The spinous processes appear intact. Intervertebral discs: There is moderate disc space narrowing at C5-C6 and C6-C7. The remaining disc spaces appear maintained Central canal: Posterior disc osteophyte complexes at C5-C6 and C6-C7 may contribute to acquired compromise of the central canal. Soft tissues: The prevertebral and paraspinous soft tissues are within normal limits. There is atherosclerotic calcification of the carotid bulbs. Calvarium: The visualized calvarium at the skull base appears intact. Brain parenchyma: Partially visualized brain parenchyma at the skull base is within normal limits. Sinuses and mastoids: The visualized paranasal sinuses are clear. There are small mastoid effusions. Cerumen is noted in the left external auditory canal. Lung apices: Clear as visualized. IMPRESSION: No acute bony abnormality is seen involving the cervical spine. ACT 112: Negative or not required by law. Electronically signed by: Sammy Sow M.D. 04/04/2023 9:[address] 04/04/23 21:04 CT SCAN OF THE BRAIN WITHOUT IV CONTRAST CLINICAL HISTORY: Headache. COMPARISON STUDY: CT of the brain dated 04/02/2023. TECHNIQUE: Unenhanced axial CT scan of the brain is performed from the vertex to the skull base. A dose lowering technique was utilized adhering to the principles of ALARA. FINDINGS: Brain parenchyma: There is age-related involutional change noting mil [id number] subcortical and periventricular microangiopathic disease. There is no hemorrhage, mass effect, or evidence of acute territorial ischemia by CT criteria. Sierra-white matter differentiation is preserved. No extra-axial fluid collection is seen. Ventricles, sulci, cisterns: Prominent secondary to involutional change. Intracranial vasculature: There is atherosclerotic calcification of the cavernous carotid arteries. Calvarium: Unremarkable. Sinuses and mastoids: The visualized paranasal sinuses are clear. There is trace mastoid effusions. Cerumen is noted in the left external auditory canal. Orbits: The bony orbits are grossly intact. IMPRESSION: There is no hemorrhage, mass effect, or evidence of acute territorial ischemia by CT criteria. ACT 112: Negative or not required by law. Electronically signed by: Sammy Sow M.D. 04/04/2023 9:[address] 04/04/23 21:04 CT SCAN OF THE THORACIC SPINE WITHOUT CONTRAST CLINICAL HISTORY: Atraumatic thoracic back pain. COMPARISON STUDY: No priors. TECHNIQUE: CT scan of the thoracic spine is performed from the lower cervical spine to the upper lumbar spine. Images are reviewed in the axial, sagittal, and coronal planes. IV contrast was not administered for this examination. A dose lowering technique was utilized adhering to the principles of ALARA. FINDINGS: The skeletal structures are osteopenic. There is no evidence of fracture or malalignment involving the thoracic spine. Vertebral body height and alignment are maintained throughout the thoracic spine. Tiny anterior osteophytes are seen throughout. The transverse and spinous processes appear intact. No lytic or blastic lesion is seen. The disc spaces appear maintained. There is no CT evidence of large disc herniation or central canal stenosis. The paraspinous soft tissues are normal as imaged. The imaged lung parenchyma appears clear noting dependent atelectasis. The visualized posterior ribs appear intact. IMPRESSION: No acute bony abnormality is seen involving the thoracic spine. ACT 112: Negative or not required by law. Electronically signed by: Sammy Sow M.D. 04/04/2023 10:14 PM Cervical Spine MRI 04/06/23 13:53 MRI OF THE CERVICAL SPINE WITH AND WITHOUT CONTRAST CLINICAL HISTORY: Possible multiple sclerosis. Dizziness. Migraines. COMPARISON: Cervical spine CT April 04, 2023. TECHNIQUE: Utilizing a 1.5 Aleksandra magnet and dedicated coil, multiplanar, multiecho imaging of the cervical spine was performed before and after intravenous administration of 6.5 of Gadavist. FINDINGS: There is mild reversal the cervical lordosis. Vertebral body heights are maintained. No suspicious marrow replacement is present. A T1 and T2 hyperintense lesion within C6 vertebral body represents a hemangioma. Cervical cord signal and caliber are normal. There is no intracanalicular mass or fluid crit. No abnormal cord enhancement is present. Paravertebral soft tissues are unremarkable. C2-C3: The central canal and neural foramen are patent. C3-C4: The central canal and neural foramen are patent. C4-C5: There is minimal disc space narrowing and slight disc bulge. The central canal and neural foramen are patent. C5-C6: There is moderate disc space narrowing. Posterior disc osteophyte complex effaces the ventral thecal sac and contacts the cord. There is no cord signal abnormality. There is mild central canal stenosis. Moderate left and mild to moderate right neural foraminal stenosis is present due to uncovertebral hypertrophy. C6-C7: There is moderate disc space narrowing. Posterior disc osteophyte complex effaces the ventral thecal sac. There is mild central canal stenosis. Moderate left and mild to moderate right neural foraminal stenosis due to uncovertebral hypertrophy is present. C7-T1: The central canal and neural foramen are patent. IMPRESSION: 1. Normal cervical cord signal and caliber. No abnormal cord enhancement. 2. Mild central canal stenosis at C5-C6 and C6-C7 due to posterior disc osteophyte complexes. 3. Moderate multilevel neural foraminal stenosis, as detailed above. ACT 112: Negative or not required by law. Electronically signed by: Andres Vázquez M.D. 04/06/2023 3:54 PM Thoracic Spine MRI 04/06/23 13:53 MRI OF THE THORACIC SPINE WITH AND WITHOUT CONTRAST CLINICAL HISTORY: Possible multiple sclerosis. COMPARISON: Thoracic spine CT April 04, 2023. TECHNIQUE: Utilizing a 1.5 Aleksandra magnet and dedicated coil, multiplanar, multiecho imaging of the thoracic spine was performed before and after the intravenous administration of 6.5 cc. FINDINGS: This study is mildly compromised by motion artifact. Vertebral body heights are maintained. A few T1 and T2 hyperintense lesions within the thoracic spine represent hemangiomas. There is no suspicious marrow replacement. There is no thoracic spine fracture. Thoracic cord signal and caliber are normal. There is no abnormal thoracic cord enhancement. There is no intracanalicular mass or fluid collection. Vertebral soft tissues are unremarkable. No disc herniations are identified. The central canal and neural foramen within the thoracic spine are patent. IMPRESSION: Unremarkable MRI of the thoracic spine. Normal thoracic cord signal and caliber. No abnormal cord enhancement. ACT 112: Negative or not required by law. Electronically signed by: Andres Vázquez M.D. 04/06/2023 4:05 PM Lumbar Puncture 04/07/23 08:21 LUMBAR PUNCTURE UNDER FLUOROSCOPY CLINICAL HISTORY: Headache with brain lesions on MRI; suspect MS PROCEDURE: Procedure and risks were explained. Informed consent was obtained. A final timeout was completed. The patient was placed prone on the fluoroscopic examination table. The lower lumbar region was prepped and draped in sterile fashion. 1% lidocaine was utilized for skin anesthesia. Utilizing fluoroscopic guidance, a 22-gauge spinal needle was advanced into the intrathecal space at the L2-3 level. 2 permanent spot images were obtained. Approximately 8 mL of clear CSF fluid was removed and sent to lab for analysis. The needle was removed and Band-Aid applied. The patient tolerated the procedure well. Vital signs will be monitored postprocedure. Total fluoroscopy time 0.13 minutes. DAP is 2.26 mcGy/m2. IMPRESSION: Lumbar puncture as above. Performed, dictated, and signed by Rodriguez Doherty PA-C; to be co-signed by Dr. Sammy Sow. Electronically signed by: Sammy Sow M.D. 04/07/2023 5:00 PM
--- NOTE | 2023-04-11 15:21 | Neurology Progress Note ---
Date of Service April 11, 2023 Assessment & Plan (1) Brain lesion: Right temporal lobe enhancing lesion with the differential diagnosis being demylinating vs a subacute stroke with associated headaches. Plan completer 5 days of steroids LP results with 0 WBCs ,1 RBC , MRI of the C spine and T spine with no evidence of demyelinating disease given persistent memory lapses and headaches, would repeat an MRI with and withotu contrast to follow up Obtain an EEG to r/o subclinical seizures precipitated by temporal lobe lesion consider starting gabapentin 100mg TID to help with headaches will need a follow up MRI with and without contrast in 2 months Follow up with Neuroimmunology Continue Aspirin and statin Subjective Telehealth Information I performed this visit using a real-time telehealth connection between my location and the patients location ([facility]). After connecting through interactive tele-video, patient was identified by name and date of and/or wristband check.Patient (or authorized healthcare direct marketing representative) was informed that this was a telemedicine visit and it was being conducted confidentially over secure lines. My office door was closed and no one else was present in the room with me.Patient (or authorized healthcare direct marketing representative) provided consent to proceed with the visit, expressed an understanding of privacy and security of the telemedicine visit, and gave permission to have a hospital direct marketing representative in the room in order to assist with the visit and to conduct portions of the visit, as needed. I informed the patient (or authorized healthcare direct marketing representative) that I reviewed their record and presented the opportunity for them to ask any questions regarding the visit today. The patient agreed to participate. The patient remaisn with a headache, she has a2/10 intensity headache at the time of my evaluation , she still denies any focal neurological deficits . She has presented with persistent headache with photophobia and phonophobia with MRI showing an enhancing lesion of the right parietal lobe Today 04/11: Sari remain siwht amild headachs , she reports feeling confused and uneasy over the past few days , she attributes this to the use of steroids . She is oriented but feels taht her memory lapses Review of Systems Constitutional: Patient denies weight loss, fever, chills, and night sweats Eyes: Patient denies change in vision, tearing, pain, and redness ENT: Patient denies pain, bleeding, rhinorrhea, and dysphagia Cardiovascular: Patient denies chest pain, palpitation, dyspnea at rest, and dyspnea with exertion Respiratory: Patient denies shortness of breath, cough, wheezing, and productive cough GI: Patient denies reflux, pain, constipation, and diarrhea Skin: Patient denies rash, dryness, and itching Allergies/Immune System: Patient denies rhinorrhea, seasonal allergies, reaction to current MEDS, and joint swelling Endocrine: Patient denies weight loss, weight gain, temperature intolerance, and excessive thirst Neurological: All negative unless mentioned in the HPI Physical Exam General NEUROLOGIC EXAMINATION: Mental Status:alert, oriented to time, place, person, normal recent memory, normal remote memory, normal attention span, normal concentration, normal language and normal fund of knowledge Cranial Nerves: CN 2 - no visual defect on confrontation and pupils round, equal, reactive to light CN 3, 4, 6 - extra-ocular movements intact and no nystagmus CN 5 - facial sensation intact CN 7 - no facial asymmetry CN 8 - intact hearing CN 9, 10 - palate symmetric, normal gag CN 11 - good shoulder shrug CN 12 - tongue midline MOTOR: Strength was at least antigravity throughout, Pronator drift was absent and There were no abnormal movements SENSATION: intact and symmetric to pinprick, light touch, vibration and joint position GAIT: stable, no ataxia and can perform tandem walking COORDINATION: no ataxia with finger to nose testing and heel to heath testing REFLEXES: cannot assess over telemedicine Results & Data Vital Signs (Past 12 Hours) Vital Signs Temp Pulse Pulse Resp BP Pulse Ox O2 Del Method 04/11/23 10:46 36.4 C L 54 L 16 118/78 96 Room Air 04/11/23 08:00 48 L 04/11/23 06:54 36.7 C 52 L 17 131/87 96 Room Air Diagnostic Findings again MRI and CTA reviewed Echocardiogram with a preserved EF 65%, christiano mitral and pulmonary regurge and mild PHT
[2023-04-11] MEDS ORDERED: GADOBUTROL 30ML VIAL IV ONE (15:26)
[2023-04-11] MEDS ORDERED: LACTATED RINGER'S 1,000 ML IV SCH (16:00)
--- NOTE | 2023-04-11 16:11 | Magnetic Resonance Report ---
MR brain wo/w con CLINICAL HISTORY: Follow up on previous MRI TECHNIQUE: Multiplanar and multisequence MR images of the brain were obtained prior to and following administration of gadolinium contrast. Comparison: Comparison is made to MRI brain 04/05/2023 FINDINGS: No abnormal restricted diffusion is identified. Numerous foci of T2/FLAIR hyperintensity are again se en throughout the white matter, unchanged from prior exam. The ventricular system is normal in appear ance. Previously noted right-sided focus of incomplete ring enhancement no longer seen, however it do es correspond to a region of T2/FLAIR white matter hyperintensity. There is no mass effect or midline shift. There is no evidence of acute intraparenchymal hemorrhage. No extra axial fluid collections a re seen. The corpus callosum, pituitary gland, and cerebellar tonsils appear grossly unremarkable. Flow voids of the major intracranial arterial vessels are identified. The imaged portions of the para nasal sinuses, mastoid air cells, and orbits are unremarkable. IMPRESSION: Redemonstration of white matter hyperintensities with interval resolution of incomplete ring enhancem ent seen on prior exam. Findings are compatible with chronic demyelinating disease with recently reso lved focus of active demyelination. ACT 112: Negative or not required by law. Electronically signed by: Mateo Mendez M.D. 04/11/2023 4:09 PM
--- NOTE | 2023-04-11 16:57 | Discharge Summary ---
Date of Service April 11, 2023 Admission HPI Per Admitting Provider This is a 62 yr old F who has a significant PMH of HTN, HLD, prediabetes and migraine who presents to ED 2/2 Headache x 6 days. She has hx of migraine in past and this feels similar. She also is reporting nausea. Her headache is, "vice like." It is a constant/throbbing pain with photophobia. She denies change in vision or hearing. She actually had a good day yesterday, but worsened today and therefore she came to ED. She denies recent illness, f/s, dizziness, lightheaded, chest pain, sob, vomiting, diarrhea, constipation, dysuria, increased urg/freq with urination, melena or hematochezia. She feels chilled/sh aky and body feeling ice cold. She works at the [employer] at [employer] so has exposure but no known sick contacts. In ED pt was significantly hypertensive despite 2 doses of IV morphine, IV reglan, Labetaolol 15mg IV and hydralazine 5mg IV. She does have prior hx of hospitalization 2/2 to elevated hypertension presenting from colonoscopy. She denies any hx of tick bite, but is active outside and also has dogs. She does complain of a red rash to her anterior chest. She has tried some OTC meds with minimal relief, specifically nyquil. Admission Exam Per Admitting Provider Physical exam was notable for a well nourished woman who appeared in distress requesting lights to remain off. Skin was flushed around the neck, warm to touch, no other obvious rashes lesions. CV exam was RRR and without murmur. Resp revealed clear breath sounds bilateral, no crackles. Abdomen soft, nontender, nondistended. MSK revealed no concerns with strength, patient observed ambulating to bathroom without dysfunction. Neuro exam revealed small pupils iso recent opioid administration, but EOMI intact. CN II-XII intact and without deficit on exam. Patient able to flex chin to chest and flex knees with out abnormal response( negative kernigs, brudziniski). Principal Diagnosis Brain lesions Hypertensive emergency Discharge Exam Physical Exam: Vitals signs as noted above General Appearance:Moderately built and nourished, no apparent distress Head: normocephalic, Atraumatic Eyes: normal inspection, EOMI Neck: supple, Trachea midline Respiratory/Chest: Normal breath sounds, CTA, No accessory muscle use Cardiovascular: S1, S2, No murmur Abdomen/GI:Soft, Non tender, Bowel sounds present Extremities/Musculoskeletal:normal inspection, no edema Neurologic/Psych:AAOX3, grossly no focal neurological deficits Skin: normal color, warm Discharge Data Allergies Allergy/AdvReac Type Severity Reaction Status Date / Time No Known Drug Allergies Allergy . Verified 04/05/23 05:51 Consultations 04/02/23 12:16 ED Decision to Admit Stat 04/04/23 13:54 Consult Cardiology Routine 04/05/23 12:12 Consult Neurology Routine 04/07/23 09:47 Consult Orthopedic Surgery Routine Ordered Studies 04/02/23 09:03 CT angio head wo/w Stat 04/03/23 US duplex renal artery Routine 04/04/23 21:04 CT cervical spine wo con Stat CT head/brain wo con Stat CT thoracic spine wo con Stat 04/05/23 12:12 MRI Brain [MR brain wo/w con] Urgent 04/06/23 13:53 MRI Cervical [MR cervical spine wo/w con] Routine MRI Thoracic [MR thoracic spine wo/w con] Routine 04/07/23 08:21 IR lumbar puncture diagnostic Routine 04/11/23 11:29 MRI Brain [MR brain wo/w con] Urgent Hospital Course (1) Hypertensive emergency: (2) Migraine: (3) Brain lesion: (4) Demyelinating disease of central nervous system: Plan Patient is a 62 yr female with H/O HTN, HLD, prediabetes presented to the ED with headache for last 6 days. Patient reported that she had headache during the whole summer which exacerbated in the last 6 days. She was also found to be hypertensive likely secondary to the headache. MRI brain was done. There were foci of T2 signal abnormality seen throughout the subcortical and periventricular white matter with a 10 mm lesion in the right parietal lobe white matter. This was concerning for demyelinating process such as multiple sclerosis. MRI of the cervical, thoracic and lumbar spine was done. No other lesions were found. Neurology and cardiology was consulted. Patient was placed on topiramate 50 mg nightly for possible migraine headache. She was started on high-dose steroid with IV methylprednisolone 1 g for 3 days for concern of multiple sclerosis flareup. She was then placed on oral prednisone 60 mg for 2 more days to complete 5-day course of steroids. Repeat brain MRI was done which showed resolution of active demyelinization; redemonstration of white matter hyperintensities was seen. Patient headache resolved as well. Her blood pressure also trended down with improvement in the headache. At discharge, patient was placed on gabapentin 100 mg 3 times a day and topiramate 50 mg at night as per recommendation by neurology. She was also placed on aspirin and Lipitor. For high blood pressure; cardiology was consulted for comanagement. At discharge, she was placed on lisinopril 20 mg once a day, spironolactone 25 mg once a day and Coreg 6.25 mg twice a day. Patient to follow-up with primary care doctor next week. She also needs to see neurology and neuro immunology as outpatient. Please note the above document was generated using voice recognition software. It may contain grammatical, syntax or spelling errors. Any formal questions or concerns about the content, text or information contained within the body of this dictation should be directly addressed to the provider for clarification Total Time Total Time Spent Total Time Spent (In Minutes): 90 Total Time Includes: Examination of the Patient, Discharge Planning, Medication Reconciliation, Communication With Other Providers and Other Discharge Plan Discharge Items Patient Disposition: Home - Self-Care Reason For Visit: HTN EMERGENCY Discharge Diagnosis: Severe headache Demyelinating disease Hypertensive urgency Activity: Resume your previous activity Non-emergency contact: Primary Care Provider Call non-emergency contact if: you have any medication questions and your symptoms worsen Follow-up/Referrals: PCPDEVIN [Primary Care Provider] - Diet: Regular Addtl Attending Provider Instructions: You were admitted to the hospital due to severe headache. The MRI of the brain showed multiple areas of flareups suggestive of inflammation. You underwent steroid course for 5 days. Repeat MRI brain showed improvement in the acute inflammation. There are still areas of the brain with areas of chronic inflammation. For the headache, the neurologist recommended: 1) topiramate 50 mg to be taken only at night 2) gabapentin 100 mg 3 times a day You can take Tylenol as needed. You were also prescribed 10 tablets of oxycodone to be used as needed for severe headache. You will need to follow-up with your primary care doctor for sometime next week. You will need neurology and neuro immunology referral. This was recommended by Dr. Allan Rodríguez ( Neurologist). The neurologist also recommended you to be on aspirin 81 mg and Lipitor(cholesterol medication). The cause for the high blood pressure is likely due to severe headache. Your blood pressure improved after resolution of the headache. Please follow the instructions below for high blood pressure: 1) for next 2 days, measure blood pressure in the morning. Please take 5-minute rest prior to measuring her blood pressure. Measure the blood pressure in sitting position with both feet on the ground and your arm rested. If your blood pressure is less than 140/80, do not take any medication. If your blood pressure is greater than 140/80 mmHg; start taking lisinopril 20 mg. 2) after you are on lisinopril 20 mg once a day; if your blood pressure continue to be greater than 140/80 the subsequent day-start taking spironolactone 25 mg once a day. 2) after you are on lisinopril and spironolactone; if your blood pressure continues to be greater than 140/80; start taking Coreg 6.25 mg twice a day. Pending Studies at Discharge: No Stand-Alone Forms: My [facility], Smoking Cessation Medications and DC Order Prescriptions: New carvedilol 6.25 mg Tablet 6.25 mg PO BIDM Qty: 60 0RF atorvastatin 20 mg Tablet 20 mg PO HS Qty: 30 0RF lisinopril 20 mg Tablet 20 mg PO QAM Qty: 30 0RF aspirin 81 mg Tablet,Delayed Release (Dr/Ec) 81 mg PO QAM Qty: 30 0RF spironolactone 25 mg Tablet 25 mg PO QAM Qty: 30 0RF gabapentin 100 mg Capsule 100 mg PO TID Qty: 90 0RF oxycodone 5 mg Tablet 5 mg PO Q12H PRN (Reason: pain) Qty: 10 0RF melatonin 3 mg Tablet 6 mg PO HS PRN (Reason: sleep) Qty: 30 0RF topiramate 50 mg Tablet 50 mg PO QPM Qty: 30 0RF Continued diphenhydramine-acetaminophen [Tylenol PM Extra Strength] 25-500 mg Tablet 1 tab PO HS PRN (Reason: Pain) Discontinued lisinopril 40 mg tablet 40 mg PO QAM Discharge Orders: Discharge Order (Routine); Ordered 04/11/23 Ordered By: Kale Russo/Other Patient Handouts: Multiple Sclerosis Admission Data Admit Date/Time: 04/02/23 13:37 Attending Provider: Kale Rogers Admit Provider: Sho Zuniga Primary Care Provider: PCP,DEVIN Other Providers: Sho Zuniga; Lianet Lim; Shaw White; Aston Valdivia; Marques Ocasio; Checo Calabrese; Agustin Chawla; Shiela Caldwell; Kristen Bright; Lianet Bernal; Papa Mobley; Dwayne Forrest; Ashleigh Toledo; Delia Santizo; Maria Del Carmen Cali; Kirby Lew; Kristen Stanford; Nilson Killian; Kristen Rai; Baudilio Andrade; Helder Blanc; Josue Jvaier; Fede Reagan; Tracy Hoyos; Evelio Chavez; Binh Virk; Allan Sheffield; Piter Church; Ana Cody; Estefania Solares; dEer Hamilton; Robert Clay
[2023-04-11] MEDS ORDERED: carvediloL 6.25 MG TAB PO SCH (17:00)
[2023-04-11] MEDS ORDERED: GABAPENTIN 100 MG CAP PO SCH (21:00)
[2023-04-14 08:46] LABS: ANA Pattern Nuclear, Speckled; ANA Titer 1:40 titer
[2023-04-16 23:11] LABS: Catech Norepinephrine 218 pg/mL; Catech Total, Plasma 218 pg/mL; Metanephrine, Plasma 41 pg/mL (<=57); Normetanephrine Plasma 30 pg/mL (<=148); Total Metanephrine Plasma 71 pg/mL (<=205)
[2023-04-16 23:37] LABS: Albumin, CSF 34.2 mg/dL (8.0-42.0); CSF, LDH 22 U/L (<=25); Cryptococcal Antigen Not Detected (Not Detected); EBV DNA Quant PCR Not Detected copies/mL; EBV DNA Quant Source CSF; IgG CSF 5.1 mg/dL (0.8-7.7); IgG Index, CSF 0.62 (<0.70); IgG Serum 962 mg/dL (600-1540); Lyme DNA PCR CSF or Synovial Not Detected (Not Detected); Lyme DNA Source CSF; Lyme IgG Band Pattern CSF DNR; Lyme IgG CSF NO BANDS DETECTED; Lyme IgM Band Pattern CSF DNR; Lyme IgM CSF NO BANDS DETECTED; Myelin Basic Protein <2.0 mcg/L (<=4.0); Oligoclonal Bands IgG, CSF Present (Absent); Source Serum; Synthesis Rate, IgG CSF 3.8 mg/24 h (-9.9-3.3)
== END 2023-04-11 17:26 | disposition home or self-care (01) | DRG 103 ==
LOC: ED 08:33 → EDINP 13:37 → SUATTDRO 13:37 → INTOOBSV 13:37 → 4W 16:42